=== PATIENT | female | born 1930 | race Caucasian/White ===

== ENCOUNTER 2016-04-10 06:51 | Emergency (ER) | payer MEDICARE ==
[2016-04-10 07:03] VITALS: O2SAT 97
[2016-04-10] MEDS ORDERED: XYLOCAINE 2% HCL 20 ML MDV ONE (07:22)
[2016-04-10] MEDS ORDERED: Xylocaine-Mpf 2% 5 Ml Vial IJ ONE (07:49)
[2016-04-10 07:53] VITALS: BP 162/77; PULSE 71
--- NOTE | 2016-04-10 07:56 | ERPHSYRPT ---
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 HAD PREVIOUS SKIN TEAR LAST WEEK ADJACENT TO SITE. DENIES ASSOCIATED HEAD, NECK OR BACK INJURY. Method of Injury: other (SLID OUT OF CHAIR) Occurred: just prior to arrival Quality: constant Severity of Pain-Max: moderate Severity of Pain-Current: mild Lower Extremities Pain: leg: left Modifying Factors: Improves With: movement Associated Symptoms: none Allergies/Adverse Reactions: meperidine HCl [From Demerol] Allergy (Mild, Verified 04/10/16 07:06) Headache Home Medications: Amiodarone HCl 200 mg PO DAILY 08/23/15 [History] Calcium Carbonate/Vitamin D3 [Calcium 600-Vit D3 400 Tablet] 1 each PO BID 08/22 [History] Levothyroxine Sodium 100 Mcg [Synthroid 100 Mcg] 100 mcg PO DAILY 08/23/15 [History] Potassium Chloride 20 Meq [Klor-Con 20 MEQ] 20 meq PO BID 08/23/15 [History] Pramipexole Di-HCl 0.5 mg [Mirapex 0.5 MG Tablet] 0.5 mg PO HS PRN PRN 09/30 [History] Multivitamin [Multi-Vitamin Daily] 1 each PO HS 01/28/16 [History] Hx Tetanus, Diphtheria Vaccination/Date Given: No Hx Influenza Vaccination/Date Given: No Hx Pneumococcal Vaccination/Date Given: No Immunizations Up to Date: Yes - Review of Systems Constitutional: No Fever, No Chills Eyes: No Symptoms Ears, Nose, & Throat: No Symptoms Respiratory: No Cough, No Dyspnea Cardiac: No Chest Pain, No Edema, No Syncope Abdominal/Gastrointestinal: No Abdominal Pain, No Nausea, No Vomiting, No Diarrhea Genitourinary Symptoms: No Dysuria Musculoskeletal: Injury, No Back Pain, No Neck Pain Skin: No Rash Neurological: No Dizziness, No Focal Weakness, No Sensory Changes Psychological: No Symptoms Endocrine: No Symptoms All Other Systems: Reviewed and Negative - Past Medical History Pertinent Past Medical History: Yes Neurological History: No Pertinent History ENT History: Cataracts Cardiac History: Arrhythmia, Hypertension Respiratory History: No Pertinent History Endocrine Medical History: Hypothyroidism Musculoskeletal History: Fractures, Osteoporosis GI Medical History: Hemorrhoids, Irritable Bowel History: No Pertinent History Psycho-Social History: Anxiety Female Reproductive Disorders: Breast Cancer Other Medical History: broken neck - Past Surgical History Past Surgical History: Yes Neuro Surgical History: No Pertinent History Cardiac: No Pertinent History Respiratory: No Pertinent History Gastrointestinal: No Pertinent History Genitourinary: No Pertinent History Musculoskeletal: Orthopedic Surgery 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 Other Surgical History: back surgery- 5 yrsago - Social History Smoking Status: Never smoker Exposure to second hand smoke: Yes Drug Use: none Patient Lives Alone: No - Female History Hx Now: No - Nursing Vital Signs Nursing Vital Signs: Initial Vital Signs Temperature 98.3 F Temperature Source Oral Pulse Rate 66 Respiratory Rate 22 Blood Pressure [Left Arm] 166/87 Pain Intensity 8 - Physical Exam General Appearance: alert Eyes, Ears, Nose, Throat Exam: moist mucous membranes Neck Exam: non-tender, supple Cardiovascular/Respiratory Exam: chest non-tender, normal breath sounds, regular rate/rhythm, no respiratory distress Gastrointestinal/Abdominal Exam: guarding Back Exam: normal inspection, No vertebral tenderness Hips Exam: bilateral: non-tender Legs Exam: left leg: pain (THERE IS A 6CM VERTICAL LACERATION OVER LEFT MID RON , THROUGH DERMIS FASCIA OVER MUSCLE EXPOSED, NO EVIDENCE OF FOREIGN BODY NOTED, LEFT PEDIS PULSE 2+), soft tissue tenderness (THERE IS A HEALING 4CM WOUND PROXIMAL TO LACERATION SITE) DTR - Lower Extremities Exam: knee (R): 2+, knee (L): 2+, ankle (R): 2+, ankle ( L): 2+ Neuro/Tendon Exam: normal sensation, normal motor functions Mental Status Exam: alert, oriented x 3, cooperative Skin Exam: normal color, warm, dry SpO2 Interpretation: normal SpO2: 97 Oxygen Delivery: Room Air Procedures - Laceration/Wound Repair Left Other Wound Location: Left, lower leg Wound Length (cm): 6 Wound's Depth, Shape: into muscle, linear Wound Explored: clean Irrigated: Yes Hibiclens Prep: Yes Anesthesia: local, 2% Lidocaine Volume Anesthetic (ccs): 7 Wound Debrided: minimal Wound Repaired With: sutures (SUBCUTANEOUS VICRYL 4-0, 4 SUTURES) Suture Size/Type: 4-0, nylon Number of Sutures: 13 Layer Closure?: Yes Sterile Dressing Applied?: Yes Splint Applied?: No Ordered Tests: Medication Summary Generic Name Dose Route Start Last Admin Trade Name Eriberto PRN Reason Stop Dose Admin Lidocaine HCl 7 ml 04/10/16 07:49 Xylocaine-Mpf 2% 5 Ml Vial IJ 04/10/16 07:50 STAT ONE Discontinued Medications Generic Name Dose Route Start Last Admin Trade Name Freq PRN Reason Stop Dose Admin Lidocaine HCl Confirm 04/10/16 07:22 Xylocaine 2% Hcl 20 Ml Mdv Administered 04/10/16 07:23 Dose 1 ml .ROUTE .[facility] ONE - Progress Counseled pt/family regarding: diagnosis, need for follow-up - Departure Time of Disposition: 08:00 Departure Disposition: Home Clinical Impression: LACERATION LEFT RON Condition: Stable Critical Care Time: No Instructions: Care for a Laceration After Repair Additional Instructions: ANTIBIOTIC KEFLEX 500MG EVERY 8 HOURS FOR 10 DAYS. HAVE STITCHES REMOVED AT 10 DAYS. WATCH FOR SIGNS OF INFECTION, REDNESS, SWELLING OR DRAINAGE. CONTINUE ALL CURRENT MEDICATIONS FOR PAIN. APPLY ICE OVER WOUND SITE EVERY 4 HOURS, 30 MINUTES FOR 48 HOURS WITH LEG ELEVATED. Prescriptions: Cephalexin Mh 500 mg [Keflex 500 mg] 500 mg PO TID #30 capsule
== END 2016-04-10 08:10 | disposition home or self-care (01) ==
LOC: ED 06:51
PROC: 0HQLXZZ Repair Left Lower Leg Skin, External Approach (ICD-10-PCS; principal; 2016-04-10)
DX: S81.812A Laceration without foreign body, left lower leg, initial encounter (principal); W07.XXXA Fall from chair, initial encounter
CPT/HCPCS: 12002; 99283

== ENCOUNTER 2016-09-02 03:10 | Inpatient (IN) | payer MEDICARE ==
--- NOTE | 2016-09-02 03:33 | ERPHSYRPT ---
- History of Present Illness Time Seen by Provider: 09/02/16 03:29 Source: patient, family Exam Limitations: no limitations Physician History: pt is 85 yr old female and has had previous confusion found to be from sodium abn and is acting similar to this before; no trauma no neuro deficits ; Timing/Duration: today Severity: moderate Character of Deficits: none Deficits: no difficulties Baseline/Normal Cognition: alert oriented x 3 Current Cognition: alert but confused Associated Symptoms: other (diarrhea) Allergies/Adverse Reactions: meperidine HCl [From Demerol] Allergy (Mild, Verified 09/02/16 05:23) Headache Home Medications: Calcium Carbonate/Vitamin D3 [Calcium 600-Vit D3 400 Tablet] 1 each PO BID 08/22 [History] Levothyroxine Sodium 100 Mcg [Synthroid 100 Mcg] 100 mcg PO DAILY 08/23/15 [History] Potassium Chloride 20 Meq [Klor-Con 20 MEQ] 20 meq PO DAILY 08/23/15 [History] Pramipexole Di-HCl 0.5 mg [Mirapex 0.5 MG Tablet] 0.5 mg PO HS PRN PRN 09/30 [History] Multivitamin [Multi-Vitamin Daily] 1 each PO HS 01/28/16 [History] Aspirin 1 tab PO HS 08/21/16 [History] Torsemide 100 mg PO DAILY 08/21/16 [History] Hx Tetanus, Diphtheria Vaccination/Date Given: No Hx Influenza Vaccination/Date Given: No Hx Pneumococcal Vaccination/Date Given: No - Review of Systems Constitutional: No Fever, No Chills Eyes: No Symptoms Ears, Nose, & Throat: No Symptoms Respiratory: No Cough, No Dyspnea Cardiac: No Chest Pain, No Edema, No Syncope Abdominal/Gastrointestinal: Diarrhea, No Abdominal Pain, No Nausea, No Vomiting Genitourinary Symptoms: No Dysuria Musculoskeletal: No Back Pain, No Neck Pain Skin: No Rash Neurological: No Dizziness, No Focal Weakness, No Sensory Changes Psychological: No Symptoms Endocrine: No Symptoms Hematologic/Lymphatic: No Symptoms Immunological/Allergic: No Symptoms All Other Systems: Reviewed and Negative - Past Medical History Pertinent Past Medical History: Yes Neurological History: No Pertinent History ENT History: Cataracts Cardiac History: Arrhythmia, Hypertension Respiratory History: No Pertinent History Endocrine Medical History: Hypothyroidism Musculoskeletal History: Fractures, Osteoporosis GI Medical History: Hemorrhoids, Irritable Bowel History: No Pertinent History Psycho-Social History: Anxiety Female Reproductive Disorders: Breast Cancer Other Medical History: broken neck - Past Surgical History Past Surgical History: Yes Neuro Surgical History: No Pertinent History Cardiac: No Pertinent History Respiratory: No Pertinent History Gastrointestinal: No Pertinent History Genitourinary: No Pertinent History Musculoskeletal: Orthopedic Surgery 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 Other Surgical History: back surgery- 5 yrsago - Social History Smoking Status: Never smoker Exposure to second hand smoke: Yes Drug Use: none Patient Lives Alone: No - Female History Hx Now: No - Nursing Vital Signs Nursing Vital Signs: Initial Vital Signs Temperature 98.7 F Temperature Source Oral Pulse Rate 76 Respiratory Rate 16 Blood Pressure [Left Arm] 105/58 - Malini Coma Scale Best Eye Response (Malini): (4) open spontaneously Best Verbal Response (Butler): (5) oriented Best Motor Response (Malini): (6) obeys commands Malini Total: 15 - Physical Exam General Appearance: no apparent distress, alert Eye Exam: bilateral eye: PERRL, EOMI Ears, Nose, Throat Exam: normal ENT inspection, moist mucous membranes Neck Exam: normal inspection, non-tender, supple Respiratory: normal breath sounds, lungs clear, airway intact, No respiratory distress Cardiovascular: regular rate/rhythm, No edema Gastrointestinal: soft, No tenderness, No distention Pelvic Exam: deferred Rectal Exam: deferred Back Exam: normal inspection Extremity Exam: normal inspection, No pedal edema 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, 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 Coordination/Gait: normal finger to nose, normal gait Skin Exam: normal color, warm, dry, No rash SpO2: 94 Oxygen Delivery: Room Air - Course Nursing assessment & vital signs reviewed: Yes EKG Interpreted by Me: A-fib (chronic afib), Left Muddy Deviation, LAFB, Non- specific ST Changes Ordered Tests: Active Orders 24 hr Category Date Time Status EKG-ER Only STAT Care 09/02/16 03:33 Active IV Insertion STAT Care 09/02/16 03:33 Active CBC W DIFF Stat Lab 09/02/16 03:39 Completed CMP Stat Lab 09/02/16 03:38 Completed CULTURE,URINE Stat Lab 09/02/16 04:45 Received Lactic Acid Stat Lab 09/02/16 03:33 Completed TROPONIN Stat Lab 09/02/16 03:38 Completed UA W/ MICROSCOPIC Stat Lab 09/02/16 04:45 Completed Medication Summary Generic Name Dose Route Start Last Admin Trade Name Eriberto PRN Reason Stop Dose Admin Sodium Chloride 1,000 mls @ 100 mls/hr 09/02/16 03:45 09/02/16 03:44 Sodium Chloride 0.9% 1000 Ml IV 10/02/16 03:44 100 mls/hr .Q10H JIAN Administration Lab/Rad Data: Laboratory Result Diagrams 09/02/16 03:39 09/02/16 03:38 Laboratory Results 09/02/16 09/02/16 09/02/16 Range/Units 04:45 03:39 03:38 WBC 8.9 (4.0-10.5) K/mm3 RBC 4.32 (4.1-5.4) M/mm3 Hgb 11.9 L (12.0-16.0) gm/dl Hct 37.4 (35-47) % MCV 86.6 (78-100) fl MCH 27.5 (26-32) pg MCHC 31.8 L (32-36) g/dl RDW 16.8 H (11.5-14.0) % Plt Count 272 (150-450) K/mm3 MPV 9.0 (6-9.5) fl Gran % 79.7 H (36.0-66.0) % Lymphocytes % 8.7 L (24.0-44.0) % Monocytes % 10.1 (0.0-12.0) % Eosinophils % 1.0 (0.00-5.0) % Basophils % 0.5 (0.0-0.4) % Basophils # 0.04 (0-0.4) Sodium 125 L (136-145) mEq/L Potassium 4.6 (3.5-5.1) mEq/L Chloride 89 L (98-107) mEq/L Carbon Dioxide 23.5 (21-32) mEq/L Anion Gap 17.2 H (5-15) MEQ/L BUN 47 H (9-20) mg/dL Creatinine 2.83 H (0.55-1.30) mg/dl Estimated GFR 17 ML/MIN Glucose 97 (70-110) MG/DL Lactic Acid (0.4-2.0) Calcium 9.5 (8.5-10.1) mg/dL Total Bilirubin 0.40 (0.2-1.0) mg/dL AST 41 H (15-37) U/L ALT 34 (12-78) U/L Alkaline Phosphatase 111 (46-116) U/L Troponin I < 0.017 (0.000-0.056) ng/ml Serum Total Protein 7.1 (6.4-8.2) gm/dL Albumin 3.8 (3.4-5.0) g/dL Ur Collection Type CATH Urine Color YELLOW (YELLOW) Urine Appearance CLEAR (CLEAR) Urine pH 6.0 (5-6) Ur Specific [place] 1.010 (1.005-1.025) Urine Protein NEGATIVE (Negative) Urine Ketones NEGATIVE (NEGATIVE) Urine Blood 5-10 (0-5) [place]/ul Urine Nitrite NEGATIVE (NEGATIVE) Urine Bilirubin NEGATIVE (NEGATIVE) Urine Urobilinogen NORMAL (0-1) mg/dL Ur Leukocyte Esterase 1+ (NEGATIVE) Urine Microscopic RBC 0-2 (0-2) /HPF Urine Microscopic WBC 10-15 (0-5) /HPF Ur Epithelial Cells FEW (FEW) /HPF Urine Bacteria MODERATE (NEGATIVE) /HPF Urine Glucose NEGATIVE (NEGATIVE) mg/dL Specimen Received 09/02/16 0445 09/02/16 Range/Units 03:33 WBC (4.0-10.5) K/mm3 RBC (4.1-5.4) M/mm3 Hgb (12.0-16.0) gm/dl Hct (35-47) % MCV (78-100) fl MCH (26-32) pg MCHC (32-36) g/dl RDW (11.5-14.0) % Plt Count (150-450) K/mm3 MPV (6-9.5) fl Gran % (36.0-66.0) % Lymphocytes % (24.0-44.0) % Monocytes % (0.0-12.0) % Eosinophils % (0.00-5.0) % Basophils % (0.0-0.4) % Basophils # (0-0.4) Sodium (136-145) mEq/L Potassium (3.5-5.1) mEq/L Chloride (98-107) mEq/L Carbon Dioxide (21-32) mEq/L Anion Gap (5-15) MEQ/L BUN (9-20) mg/dL Creatinine (0.55-1.30) mg/dl Estimated GFR ML/MIN Glucose (70-110) MG/DL Lactic Acid 1.7 (0.4-2.0) Calcium (8.5-10.1) mg/dL Total Bilirubin (0.2-1.0) mg/dL AST (15-37) U/L ALT (12-78) U/L Alkaline Phosphatase (46-116) U/L Troponin I (0.000-0.056) ng/ml Serum Total Protein (6.4-8.2) gm/dL Albumin (3.4-5.0) g/dL Ur Collection Type Urine Color (YELLOW) Urine Appearance (CLEAR) Urine pH (5-6) Ur Specific [place] (1.005-1.025) Urine Protein (Negative) Urine Ketones (NEGATIVE) Urine Blood (0-5) [place]/ul Urine Nitrite (NEGATIVE) Urine Bilirubin (NEGATIVE) Urine Urobilinogen (0-1) mg/dL Ur Leukocyte Esterase (NEGATIVE) Urine Microscopic RBC (0-2) /HPF Urine Microscopic WBC (0-5) /HPF Ur Epithelial Cells (FEW) /HPF Urine Bacteria (NEGATIVE) /HPF Urine Glucose (NEGATIVE) mg/dL Specimen Received - Progress Progress: improved, re-examined Progress Note: 09/02/16 06:27 discussed with pt, family, and Dr. Zeng covering for Dr Savage and all agree to admit to correct electrolytes and watch kidney. Discussed with : Karri Will see patient in: hospital (full admit) Counseled pt/family regarding: lab results, diagnosis, need for follow-up - Departure Time of Disposition: 06:28 Departure Disposition: In-patient Admission Clinical Impression: CKD (chronic kidney disease), Hyponatremia, Altered mental status Condition: Good Critical Care Time: No
[2016-09-02] MEDS: Sodium Chloride 0.9% 1000 ML 1,000 ML IV SCH ×3 (03:44→23:08)
[2016-09-02 03:45] LABS: BASOPHIL % 0.5 % (0.0-0.4); Granulocytes % 79.7 % (36.0-66.0); Lymphocytes % 8.7 % (24.0-44.0); Mean Cell Volume 86.6 fl (78-100); Mean Corpuscular Hemoglobin 27.5 pg (26-32); Monocytes % 10.1 % (0.0-12.0); Platelet Count 272 K/mm3 (150-450); Red Blood Count 4.32 M/mm3 (4.1-5.4); Red Cell Distribution Width 16.8 % (11.5-14.0); White Blood Count 8.9 K/mm3 (4.0-10.5)
[2016-09-02 03:59] LABS: ALBUMIN 3.8 g/dL (3.4-5.0); ALKALINE PHOSPHATASE 111 U/L (46-116); ANION GAP 17.2 MEQ/L (5-15); BLOOD UREA NITROGEN 47 mg/dL (9-20); CHLORIDE 89 mEq/L (98-107); Carbon Dioxide 23.5 mEq/L (21-32); Glucose 97 MG/DL (70-110); Potassium 4.6 mEq/L (3.5-5.1); SGOT/AST 41 U/L (15-37); SGPT/ALT 34 U/L (12-78); SODIUM 125 mEq/L (136-145); Total Protein 7.1 gm/dL (6.4-8.2)
[2016-09-02 04:17] LABS: TROPONIN < 0.017 ng/ml (0.000-0.056)
[2016-09-02 05:04] LABS: Bilirubin NEGATIVE (NEGATIVE); COMPLETE URINE MICROSCOPIC? YES; Collection Type CATH; Glucose NEGATIVE (NEGATIVE); Leukocyte Esterase 1+ (NEGATIVE)
[2016-09-02 05:05] LABS: Bacteria MODERATE /HPF (NEGATIVE); Epithelial Cells FEW /HPF (FEW)
[2016-09-02 05:08] LABS: ADD URINE CULTURE? YES (NO)
[2016-09-02] MEDS ORDERED: Mirapex 0.5 MG Tablet ONE (06:08)
[2016-09-02] MEDS: Mirapex 0.5 MG Tablet PO SCH ×2 (06:15→20:29)
[2016-09-02 09:07] LABS: Mean Cell Volume 86.2 fl (78-100); Mean Platelet Volume 8.7 fl (6-9.5); Platelet Count 251 K/mm3 (150-450); Red Blood Count 4.26 M/mm3 (4.1-5.4); Red Cell Distribution Width 16.9 % (11.5-14.0); White Blood Count 8.5 K/mm3 (4.0-10.5)
[2016-09-02 09:17] LABS: Mean Corpuscular Hemoglobin 27.6 pg (26-32)
[2016-09-02 09:30] LABS: ANION GAP 14.1 MEQ/L (5-15); Carbon Dioxide 25.1 mEq/L (21-32); Potassium 4.9 mEq/L (3.5-5.1)
[2016-09-02] MEDS ORDERED: TYLENOL 325 MG PO PRN (10:30)
[2016-09-02] MEDS ORDERED: Klor Con 10 MEQ PO SCH (10:45)
[2016-09-02] MEDS: Calcium 500MG W/Vit D Tablet PO SCH ×2 (11:39→20:29)
[2016-09-02] MEDS: TENORMIN 50 MG PO SCH (11:39)
[2016-09-02] MEDS: THERAGRAN MULTIVITAMIN PO SCH (11:39)
[2016-09-02] MEDS: SYNTHROID 100 MCG PO SCH (11:42)
[2016-09-02] MEDS: Ativan 0.5 MG PO SCH ×2 (11:42→20:29)
[2016-09-02] MEDS: Cordarone 200 MG PO SCH (11:42)
[2016-09-02] MEDS: KENALOG 0.1% OINTMENT TP SCH (11:43)
[2016-09-02] MEDS: TAPENTADOL PO SCH ×2 (11:43→20:54)
[2016-09-02] MEDS: Ecotrin 325 MG PO SCH (20:29)
[2016-09-02] MEDS: ULTRAM 50 MG PO PRN (20:54)
[2016-09-02] MEDS ORDERED: VITAMIN D3 PO SCH (22:00)
[2016-09-02] MEDS ORDERED: [UNRECOGNIZED DRUG - OTHER] PO SCH (22:00)
[2016-09-02] MEDS ORDERED: Ativan 1 MG PO SCH (22:00)
[2016-09-02] MEDS ORDERED: NON-FORMULARY ITEM (Multivitamin [Multi-Vitamin Daily] 1 EACH) PO SCH (22:00)
[2016-09-02] MEDS ORDERED: NON-FORMULARY ITEM (Tapentadol Hcl [Nucynta Er] 200 MG) PO SCH (22:00)
[2016-09-02] MEDS ORDERED: ASPIRIN PO SCH (22:00)
[2016-09-02] MEDS ORDERED: CALCIUM CARBONATE PO SCH (22:00)
[2016-09-03 06:24] LABS: BASOPHIL % 0.2 % (0.0-0.4); Eosinophil % 2.3 % (0.00-5.0); Granulocytes % 77.1 % (36.0-66.0); Mean Cell Volume 87.3 fl (78-100); Mean Corpuscular Hemoglobin 27.7 pg (26-32); Mean Platelet Volume 9.2 fl (6-9.5); Monocytes % 11.4 % (0.0-12.0); Platelet Count 247 K/mm3 (150-450); Red Cell Distribution Width 17.6 % (11.5-14.0); White Blood Count 8.2 K/mm3 (4.0-10.5)
[2016-09-03] MEDS: ULTRAM 50 MG PO PRN (06:39)
[2016-09-03 06:42] LABS: ALBUMIN 3.5 g/dL (3.4-5.0); ANION GAP 12.8 MEQ/L (5-15); BILIRUBIN,TOTAL 0.5 mg/dL (0.2-1.0); Potassium 4.7 mEq/L (3.5-5.1)
--- NOTE | 2016-09-03 07:58 | PCM.NOTE ---
Date and Time: 09/03/16 0758 Subjective Assessment: she presented yesterday with weakness and confusion. She had been eating large quantities of peaches and developed diarrhea with this. She was still taking her diuretic as well. She then became confused and disoriented more. She was brought to the ED. She is now feeling better after the fluids. Still weak. Swelling in legs is better with elevation. She has less confusion. Her back is really hurting hernow. SHe follows with pain mgmt for this. 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 Objective Exam General Appearance: no apparent distress, alert Neurologic Exam: alert, oriented x 3, cooperative, normal mood/affect, nml cerebellar function, sensation nml, No motor deficits Skin Exam: normal color, warm, dry Eye Exam: PERRL, EOMI, eyes nml inspection Ears, Nose, Throat Exam: normal ENT inspection, pharynx normal, moist mucous membranes Neck Exam: normal inspection, non-tender, supple, full range of motion Respiratory Exam: normal breath sounds, lungs clear, No respiratory distress Cardiovascular Exam: regular rate/rhythm, murmur Gastrointestinal/Abdomen Exam: soft, normal bowel sounds, No tenderness, No mass Extremity Exam: normal inspection, normal range of motion, other (trace Right lower extremity edema) Back Exam: normal inspection, normal range of motion, No CVA tenderness, No vertebral tenderness Pelvic Exam: deferred Rectal Exam: deferred OBJECTIVE DATA Vital Signs: Vital Signs - 24 hr Temp Pulse Resp BP BP Pulse Ox 09/03/16 07:00 98.2 F 86 20 137/84 91 L 09/03/16 03:00 98.1 F 79 18 136/72 92 L 09/02/16 23:00 98.3 F 84 18 136/65 97 09/02/16 19:57 98.3 F 78 20 104/57 92 L 09/02/16 15:55 98.0 F 86 18 114/57 93 L 09/02/16 11:44 98.1 F 91 H 18 128/59 95 09/02/16 11:39 75 128/59 Pain Assessment - Last Documented Pain Intensity 5 Pain Scale Used 0-10 Pain Scale Intake and Output: Intake & Output 08/31/16 09/01/16 09/02/16 09/03/16 11:59 11:59 11:59 11:59 Intake Total 1160 Output Total 700 2000 Balance -700 -840 Weight 65.544 kg Lab Results: Lab Results-Last 24 Hours 09/02/16 09/02/16 09/03/16 Range/Units 08:45 08:45 05:45 WBC 8.5 (4.0-10.5) K/mm3 RBC 4.26 (4.1-5.4) M/mm3 Hgb 11.8 L (12.0-16.0) gm/dl Hct 36.7 (35-47) % MCV 86.2 (78-100) fl MCH 27.6 (26-32) pg MCHC 32.2 (32-36) g/dl RDW 16.9 H (11.5-14.0) % Plt Count 251 (150-450) K/mm3 MPV 8.7 (6-9.5) fl Gran % (36.0-66.0) % Lymphocytes % (24.0-44.0) % Monocytes % (0.0-12.0) % Eosinophils % (0.00-5.0) % Basophils % (0.0-0.4) % Basophils # (0-0.4) Sodium 126 L (136-145) mEq/L Potassium 4.9 (3.5-5.1) mEq/L Chloride 92 L (98-107) mEq/L Carbon Dioxide 25.1 (21-32) mEq/L Anion Gap 14.1 (5-15) MEQ/L BUN 43 H (9-20) mg/dL Creatinine 2.53 H (0.55-1.30) mg/dl Estimated GFR 19 ML/MIN Glucose 87 (70-110) MG/DL Calcium 9.0 (8.5-10.1) mg/dL Total Bilirubin (0.2-1.0) mg/dL AST (15-37) U/L ALT (12-78) U/L Alkaline Phosphatase (46-116) U/L Troponin I < 0.017 (0.000-0.056) ng/ml Serum Total Protein (6.4-8.2) gm/dL Albumin (3.4-5.0) g/dL Prealbumin 20.3 (18.0-35.7) mg/dL 09/03/16 09/03/16 Range/Units 05:45 05:45 WBC 8.2 (4.0-10.5) K/mm3 RBC 4.40 (4.1-5.4) M/mm3 Hgb 12.2 (12.0-16.0) gm/dl Hct 38.4 (35-47) % MCV 87.3 (78-100) fl MCH 27.7 (26-32) pg MCHC 31.8 L (32-36) g/dl RDW 17.6 H (11.5-14.0) % Plt Count 247 (150-450) K/mm3 MPV 9.2 (6-9.5) fl Gran % 77.1 H (36.0-66.0) % Lymphocytes % 9.0 L (24.0-44.0) % Monocytes % 11.4 (0.0-12.0) % Eosinophils % 2.3 (0.00-5.0) % Basophils % 0.2 (0.0-0.4) % Basophils # 0.02 (0-0.4) Sodium 130 L (136-145) mEq/L Potassium 4.7 (3.5-5.1) mEq/L Chloride 98 (98-107) mEq/L Carbon Dioxide 24.0 (21-32) mEq/L Anion Gap 12.8 (5-15) MEQ/L BUN 26 H (9-20) mg/dL Creatinine 1.70 H (0.55-1.30) mg/dl Estimated GFR 31 ML/MIN Glucose 81 (70-110) MG/DL Calcium 8.8 (8.5-10.1) mg/dL Total Bilirubin 0.50 (0.2-1.0) mg/dL AST 44 H (15-37) U/L ALT 32 (12-78) U/L Alkaline Phosphatase 107 (46-116) U/L Troponin I (0.000-0.056) ng/ml Serum Total Protein 7.0 (6.4-8.2) gm/dL Albumin 3.5 (3.4-5.0) g/dL Prealbumin (18.0-35.7) mg/dL Assessment/Plan (1) Hyponatremia Current Visit: Yes Status: Acute Assessment & Plan: hypovolemic hyponatremia secondary to diarrhea and her loop diuretic with acute on chronic renal failure hold the loop gentle rehydration good improvement in renal function today monitor I/O decrease iv fluids today if continues to improve likely home tomorrow work on gait and function. 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
[2016-09-03] MEDS: Sodium Chloride 0.9% 1000 ML 1,000 ML IV SCH ×2 (09:23→19:32)
[2016-09-03] MEDS: Ativan 1 MG PO SCH ×2 (09:24→21:27)
[2016-09-03] MEDS: ENOXAPARIN SODIUM SQ SCH (09:25)
[2016-09-03] MEDS: Calcium 500MG W/Vit D Tablet PO SCH ×2 (09:25→21:27)
[2016-09-03] MEDS: NON-FORMULARY ITEM PO SCH ×2 (09:25→21:27)
[2016-09-03] MEDS: SYNTHROID 100 MCG PO SCH (09:26)
[2016-09-03] MEDS: TENORMIN 50 MG PO SCH (09:26)
[2016-09-03] MEDS: THERAGRAN MULTIVITAMIN PO SCH (09:27)
[2016-09-03] MEDS: Cordarone 200 MG PO SCH (09:27)
[2016-09-03] MEDS: KENALOG 0.1% OINTMENT TP SCH (09:32)
--- NOTE | 2016-09-03 09:38 | HP ---
CHIEF COMPLAINT: Confusion. HISTORY OF PRESENT ILLNESS: The patient is an 85 y/o WF who appears to be somewhat better this morning. She appears to be answering questions appropriately. She apparently had confusion issues. She was brought in to the Emergency Room by her daughter who she currently lives with. The patient has had previous episodes of hyponatremia which has led to confusion in the past. The patient otherwise has had no recent new problems. PAST MEDICAL HISTORY: Significant for cataracts, arrhythmia, hypertension, hypothyroid, osteoporosis, hemorrhoids, irritable bowel, breast cancer, and neck fracture. HOME MEDICATIONS: Currently include acetaminophen, amiodarone, aspirin, atenolol, calcium, Enalapril, levothyroxine, lorazepam, potassium, Mirapex, Nucynta, Torsemide, tramadol, and triamcinolone. ALLERGIES: MEPERIDINE. PHYSICAL EXAMINATION: Reveals an elderly WF currently in no obvious distress. HEENT: Normocephalic and atraumatic. Pupils equal, round, and reactive to light. Extraocular movements intact. Oropharynx is pink and moist. NECK: Supple without lymphadenopathy, thyromegaly, or JVD. CHEST: Clear to auscultation with good air movement bilaterally. HEART: Regular rate and rhythm without murmurs, rubs, or gallops. ABDOMEN: Soft, nontender, nondistended without hepatosplenomegaly or masses. EXTREMITIES: Without clubbing, cyanosis, or significant edema. NEURO: The patient is currently neurologically A&O X 3. VITAL SIGNS ON ADMISSION: Her initial vital signs showed a temperature of 98.7 oral with pulse of 76, respiratory rate 16, BP 105/58. LABORATORY STUDIES: Showed a WBC of 8500, Hgb 11.8, platelet count 251,000. She had a creatinine of 2.83 which is up from 1.52 from a month ago. Her lactic acid was 1.7. BUN was 47, sodium 125. Liver enzymes were normal. Troponin was less than 0.017. UA showed a specific gravity of 1.010. There were 10-15 WBC per high powered field, but negative nitrite. ASSESSMENT: 1. THE PATIENT WITH CONFUSION, HYPONATREMIA, AND WHAT APPEARS TO BE SYNDROME OF INAPPROPRIATE ANTIDIURETIC HORMONE SECRETION. She has been placed on saline and fluid restriction to try to help her improve her sodium. Interestingly, she also has renal insufficiency which has worsened over the past month. We will hold the patient's Enalapril and she will be reduced on her Ativan to 0.5 mg from 1 mg and on her Nucynta will be reduced to 100 mg from 200 mg to help with reduction in her confusion.
[2016-09-03] MEDS ORDERED: NON-FORMULARY ITEM (Potassium Chloride 20 Meq [Klor-Con 20 Meq] 20 MEQ) PO SCH (10:00)
[2016-09-03] MEDS ORDERED: TAPENTADOL HCL PO SCH (10:00)
[2016-09-03] MEDS: Ecotrin 325 MG PO SCH (21:26)
[2016-09-03] MEDS: Mirapex 0.5 MG Tablet PO SCH (21:27)
[2016-09-04] MEDS: ULTRAM 50 MG PO PRN (04:14)
[2016-09-04] MEDS: Sodium Chloride 0.9% 1000 ML 1,000 ML IV SCH (05:25)
[2016-09-04 06:16] LABS: ANION GAP 12.8 MEQ/L (5-15); Carbon Dioxide 21.6 mEq/L (21-32); Potassium 4.6 mEq/L (3.5-5.1)
[2016-09-04 07:11] VITALS: BP 161/86; O2SAT 93
[2016-09-04] MEDS ORDERED: Macrobid 100MG Capsule PO SCH (08:00)
--- NOTE | 2016-09-04 08:05 | PCM.DS ---
Discharge Summary Date of Admission: 09/02/16 06:45 Date of Discharge: 09/04/16 Admitting Physician: DEBORAH MOCTEZUMA Primary Care Provider: KELSI AGUILAR Allergies Allergies meperidine HCl [From Demerol] Allergy (Mild, Verified 09/02/16 05:23) Headache Hospital Summary - Hospital Course Hospital Course: she presented with increased confusion and weakness after developing diarrhea. She had been eating peaches for all her meals and gave her profound diarrhea. THis resulted in her being confused. she was evaluated and found to have acute hyponatremia and acute kidney injury due to dehydration. this improved with slow hydration with normal saline. Her loop diuretic and sukumar inhibitor were held and her renal function improved to baseline. She did not have any significant edema at time of discharge in her lower extremities and her strength was improving and her mental status was improving and thus her torsemide will be used as needed for swelling and she will re-establish with nephrology as an outpatient. - Vitals & Intake/Output Vital Signs: Vital Signs Temperature 98.2 F 09/04/16 07:10 Pulse Rate 86 09/04/16 07:10 Respiratory Rate 18 09/04/16 07:10 Blood Pressure 161/86 09/04/16 07:10 O2 Sat by Pulse Oximetry 93 L 09/04/16 07:10 Intake & Output: Intake & Output 09/01/16 09/02/16 09/03/16 09/04/16 11:59 11:59 11:59 11:59 Intake Total 1520 720 Output Total 700 2000 1000 Balance -700 -480 -280 Weight 65.544 kg 68.583 kg - Lab Result Diagrams: 09/03/16 05:45 09/04/16 05:25 Lab Results-Last 24 Hrs: Lab Results-Last 24 Hours 09/04/16 Range/Units 05:25 Sodium 134 L (136-145) mEq/L Potassium 4.6 (3.5-5.1) mEq/L Chloride 104 (98-107) mEq/L Carbon Dioxide 21.6 (21-32) mEq/L Anion Gap 12.8 (5-15) MEQ/L BUN 16 (9-20) mg/dL Creatinine 1.23 (0.55-1.30) mg/dl Estimated GFR 44 ML/MIN Glucose 104 (70-110) MG/DL Calcium 8.9 (8.5-10.1) mg/dL - Procedures and Test Procedures and Tests throughout Hospitalization: Therapy Orders & Screens 09/03/16 07:52 PT Eval & Treat ( Order) ROUTINE Evaluate: Yes Treat: Yes Reason for Eval:: generalized weakness gait instability Diagnosis: hyponatremia Discharge Exam General Appearance: no apparent distress, alert Neurologic Exam: alert, oriented x 3, cooperative, normal mood/affect, abnormal gait, No nml station & gait Skin Exam: normal color, warm, dry Eye Exam: PERRL, EOMI, eyes nml inspection Ears, Nose, Throat Exam: normal ENT inspection, pharynx normal, moist mucous membranes Neck Exam: normal inspection, non-tender, supple, full range of motion Respiratory Exam: normal breath sounds, lungs clear, No respiratory distress Cardiovascular Exam: regular rate/rhythm, murmur Gastrointestinal/Abdomen Exam: soft, No tenderness, No mass Extremity Exam: normal inspection, normal range of motion, pedal edema (trace bilateral lowere extremity) Back Exam: normal inspection, normal range of motion, No CVA tenderness, No vertebral tenderness Pelvic Exam: deferred Rectal Exam: deferred Final Diagnosis/Problem List - Final Discharge Diagnosis/Problem (1) Hyponatremia Status: Acute (2) Acute kidney failure Status: Acute (3) Anemia Status: Acute (4) CKD (chronic kidney disease) Status: Acute (5) 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 Status: Acute (6) Edema Status: Acute (7) Hypertension Status: Chronic (8) Acute cystitis Status: Acute (9) Weakness generalized Status: Acute (10) Gait instability Status: Acute - Discharge Discharge Date: 09/04/16 Disposition: Home, Self-Care Condition: Good Prescriptions: New Nitrofurantoin Macro 100 mg [Macrobid 100MG Capsule] 100 mg PO BIDWM # 14 capsule Continue Levothyroxine Sodium 100 Mcg [Synthroid 100 Mcg] 100 mcg PO DAILY Calcium Carbonate/Vitamin D3 [Calcium 600-Vit D3 400 Tablet] 1 each PO BID Pramipexole Di-HCl 0.5 mg [Mirapex 0.5 MG Tablet] 0.5 mg PO HS PRN PRN PRN Reason: Pain Multivitamin [Multi-Vitamin Daily] 1 each PO HS Atenolol 50 mg [Tenormin 50 mg] 50 mg PO DAILY #0 tablet Acetaminophen 325 mg [Tylenol 325 mg] 650 mg PO Q4H PRN PRN #0 tablet PRN Reason: Pain, Fever, Headache Enalapril Maleate 10 mg [Vasotec 10 MG] 10 mg PO DAILY #0 tablet Tramadol HCl [Ultram 50 mg Tablet] 50 mg PO Q6HPRN PRN #90 tablet PRN Reason: Pain Aspirin 1 tab PO HS Amiodarone HCl 200 mg [Cordarone 200 MG] 200 mg PO DAILY Tapentadol HCl [Nucynta ER] 200 mg PO BID Lorazepam 1 mg [Ativan 1 MG] 1 mg PO BID Triamcinolone Acetonide 0.1% [Kenalog 0.1% Ointment] 15 gm TP DAILY Changed Potassium Chloride 20 Meq [Klor-Con 20 MEQ] 20 meq PO DAILY PRN #0 PRN Reason: edema Torsemide 100 mg PO DAILY PRN #0 PRN Reason: edema Instructions: Urinary Tract Infection (UTI), Hyponatremia Additional Instructions: [facility] PT/OT/RN evaluate and treat weakness, gait instability, falls, Follow up with: KELSI AGUILAR [Primary Care Provider] - JOVANY MUKHERJEE MD [CONSULTING PHYSICIAN] - 1 Week Forms: Discharge Instructions, Patient Portal Information
[2016-09-04] MEDS: THERAGRAN MULTIVITAMIN PO SCH (08:59)
[2016-09-04] MEDS: Cordarone 200 MG PO SCH (08:59)
[2016-09-04] MEDS: Calcium 500MG W/Vit D Tablet PO SCH (08:59)
[2016-09-04] MEDS: Ativan 1 MG PO SCH (08:59)
[2016-09-04] MEDS: TENORMIN 50 MG PO SCH (08:59)
[2016-09-04] MEDS: SYNTHROID 100 MCG PO SCH (08:59)
[2016-09-04] MEDS: KENALOG 0.1% OINTMENT TP SCH (09:00)
[2016-09-04] MEDS: ENOXAPARIN SODIUM SQ SCH (09:00)
[2016-09-04] MEDS: NON-FORMULARY ITEM PO SCH (09:00)
[2016-09-04 09:01] VITALS: PULSE 93
== END 2016-09-04 10:10 | disposition home or self-care (01) | DRG 641 ==
LOC: ED 03:10 → MED SURG 06:45
PROVIDERS: ADMIT Family Medicine; ATTEND Family Medicine
DX: E87.1 Hypo-osmolality and hyponatremia (principal); E22.2 Syndrome of inappropriate secretion of antidiuretic hormone; N17.9 Acute kidney failure, unspecified; I13.0 Hypertensive heart and chronic kidney disease with heart failure and stage 1 through stage 4 chronic kidney disease, or unspecified chronic kidney disease; I50.30 Unspecified diastolic (congestive) heart failure; N30.00 Acute cystitis without hematuria; D64.9 Anemia, unspecified; N18.9 Chronic kidney disease, unspecified; R53.1 Weakness; R26.89 Other abnormalities of gait and mobility; Z79.899 Other long term (current) drug therapy; E03.9 Hypothyroidism, unspecified; M81.0 Age-related osteoporosis without current pathological fracture; Z85.3 Personal history of malignant neoplasm of breast
CPT/HCPCS: 36000; 36415; 80048; 80053; 81000; 83605; 84134; 84484; 85025; 85027; 87077; 87086; 87186; 93005; 99285; J1650; P9612; A9270-GY

== ENCOUNTER 2016-09-26 10:24 | Inpatient (IN) | payer MEDICARE ==
[2016-09-26] MEDS ORDERED: Zofran 4 MG/2 ML VIAL IV ONE (10:58)
[2016-09-26] MEDS ORDERED: Sodium Chloride 0.9% 1000 ML 1,000 ML IV SCH (11:00)
[2016-09-26] MEDS ORDERED: Zofran 4 MG/2 ML VIAL ONE (11:12)
[2016-09-26 11:26] LABS: Mean Cell Volume 88.3 fl (78-100); Mean Corpuscular Hemoglobin 28.3 pg (26-32); Mean Platelet Volume 8.8 fl (6-9.5); Platelet Count 289 K/mm3 (150-450); Red Blood Count 4.27 M/mm3 (4.1-5.4); Red Cell Distribution Width 19.6 % (11.5-14.0)
[2016-09-26 11:29] LABS: PROTIME 11.3 SECONDS (9.95-12.35)
--- NOTE | 2016-09-26 11:30 | ERPHSYRPT ---
- History of Present Illness Time Seen by Provider: 09/26/16 10:55 Source: patient, family Exam Limitations: clinical condition Patient Subjective Stated Complaint: vomiting yesterday and today. family also states [facility] nurse from [facility] took patient's b/p yesterda and it was low. recent hx of fx pelvis and low sodium Triage Nursing Assessment: to room per w/c, skin w/d, pale. resp nonlabored. patient assisted to bed with one person. is able to stand with assist. abd soft, normal bowel sounds. tender left pelvic area. Physician History: PATIENT WITH A HISTORY OF HYPONATREMIA, RECENT PELVIC FRACTURE HAS GENERALIZED WEAKNESS, AND VOMITING DAILY. DENIES COUGH,DYSPNEA, CHEST OR ABDOMINAL PAIN. Timing/Duration: day(s) Severity: moderate Associated Symptoms: nausea, vomiting Allergies/Adverse Reactions: meperidine HCl [From Demerol] Allergy (Mild, Verified 09/26/16 10:47) Headache Home Medications: Calcium Carbonate/Vitamin D3 [Calcium 600-Vit D3 400 Tablet] 1 each PO BID 08/22 [History] Levothyroxine Sodium 100 Mcg [Synthroid 100 Mcg] 100 mcg PO DAILY 08/23/15 [History] Pramipexole Di-HCl 0.5 mg [Mirapex 0.5 MG Tablet] 0.5 mg PO HS PRN PRN 09/30 [History] Multivitamin [Multi-Vitamin Daily] 1 each PO HS 01/28/16 [History] Aspirin 1 tab PO HS 08/21/16 [History] Amiodarone HCl 200 mg [Cordarone 200 MG] 200 mg PO DAILY 09/02/16 [History ] Lorazepam 1 mg [Ativan 1 MG] 1 mg PO BID 09/02/16 [History] Tapentadol HCl [Nucynta ER] 200 mg PO BID 09/02/16 [History] Triamcinolone Acetonide 0.1% [Kenalog 0.1% Ointment] 15 gm TP DAILY [History] Potassium Chloride 20 Meq [Klor-Con 20 MEQ] 20 meq PO DAILY 09/26/16 [History] Pramipexole Di-HCl 0.5 mg [Mirapex 0.5 MG Tablet] 0.5 mg PO UD 09/26/16 [ History] Torsemide 100 mg PO DAILY 09/26/16 [History] Hx Tetanus, Diphtheria Vaccination/Date Given: No Hx Influenza Vaccination/Date Given: Yes Hx Pneumococcal Vaccination/Date Given: Yes Immunizations Up to Date: No - Review of Systems Constitutional: No Fever, No Chills Eyes: No Symptoms Ears, Nose, & Throat: No Symptoms Respiratory: No Symptoms, No Cough, No Dyspnea Cardiac: No Symptoms, No Chest Pain, No Edema, No Syncope Abdominal/Gastrointestinal: Nausea, Vomiting, No Diarrhea Genitourinary Symptoms: No Symptoms, No Dysuria Musculoskeletal: Injury, Other (pelvic fracture), No Back Pain, No Neck Pain Skin: No Rash Neurological: No Dizziness, No Focal Weakness, No Sensory Changes Psychological: No Symptoms Endocrine: No Symptoms All Other Systems: Reviewed and Negative - Past Medical History Pertinent Past Medical History: Yes Neurological History: No Pertinent History ENT History: Cataracts Cardiac History: Arrhythmia, Hypertension Respiratory History: No Pertinent History Endocrine Medical History: Hypothyroidism Musculoskeletal History: Fractures, Osteoporosis GI Medical History: Hemorrhoids, Irritable Bowel History: No Pertinent History Psycho-Social History: Anxiety Female Reproductive Disorders: Breast Cancer Other Medical History: broken neck - Past Surgical History Past Surgical History: Yes Neuro Surgical History: No Pertinent History Cardiac: No Pertinent History Respiratory: No Pertinent History Gastrointestinal: No Pertinent History Genitourinary: No Pertinent History Musculoskeletal: Orthopedic Surgery 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 Other Surgical History: back surgery- 5 yrsago; cataract surgery both eyes - Social History Smoking Status: Never smoker Exposure to second hand smoke: Yes Drug Use: none Patient Lives Alone: No - Female History Hx Now: No - Nursing Vital Signs Nursing Vital Signs: Initial Vital Signs Temperature 97.7 F Temperature Source Oral Pulse Rate 64 Respiratory Rate 16 Blood Pressure [] 100/54 Pain Intensity 7 - Physical Exam General Appearance: no apparent distress, alert Eye Exam: PERRL/EOMI, eyes nml inspection Ears, Nose, Throat Exam: normal ENT inspection, TMs normal, pharynx normal, moist mucous membranes Neck Exam: normal inspection, non-tender, supple, full range of motion Respiratory Exam: normal breath sounds, lungs clear, No respiratory distress Cardiovascular Exam: regular rate/rhythm, normal heart sounds, normal peripheral pulses Gastrointestinal/Abdomen Exam: soft, normal bowel sounds, tenderness (right groin area, no crepitus), No mass Back Exam: normal inspection, normal range of motion, No CVA tenderness, No vertebral tenderness Extremity Exam: normal inspection, normal range of motion, pelvis stable Neurologic Exam: alert, oriented x 3, cooperative, normal mood/affect, nml cerebellar function, nml station & gait, sensation nml, No motor deficits Skin Exam: normal color, warm, dry, No rash Lymphatic Exam: No adenopathy SpO2: 94 Oxygen Delivery: Room Air - Course EKG Interpreted by Me: A-fib, Left [place] Deviation, Non-specific ST Changes - Radiology Exams Chest X-ray Interpretation: Discussed w/ radiologist (MILD CARDIOMEGALY, WITHOUT EVIDENCE OF ACUTE CONGESTIVE HEART FAILURE, MULTIPLE OLD RIGHT SIDED RIB FRACTURES) Ordered Tests: Active Orders 24 hr Category Date Time Status EKG-ER Only STAT Care 09/26/16 11:43 Active IV Insertion STAT Care 09/26/16 10:58 Active CHEST 1 VIEW (PORTABLE) Stat Exams 09/26/16 11:01 Completed AMYLASE Stat Lab 09/26/16 11:08 Completed CBC W DIFF Stat Lab 09/26/16 11:08 Completed CMP Stat Lab 09/26/16 11:08 Completed CULTURE,URINE Stat Lab 09/26/16 11:40 Received LIPASE Stat Lab 09/26/16 11:08 Completed Manual Differential NC Stat Lab 09/26/16 11:08 Completed PROTIME WITH INR Stat Lab 09/26/16 11:08 Completed TROPONIN Q3H Lab 09/26/16 11:08 Completed TROPONIN Q3H Lab 09/26/16 14:15 Ordered TROPONIN Q3H Lab 09/26/16 17:15 Ordered TROPONIN Q3H Lab 09/26/16 20:15 Ordered TROPONIN Q3H Lab 09/26/16 23:15 Ordered UA W/ MICROSCOPIC Stat Lab 09/26/16 11:40 Completed Medication Summary Generic Name Dose Route Start Last Admin Trade Name Freq PRN Reason Stop Dose Admin Sodium Chloride 1,000 mls @ 100 mls/hr 09/26/16 11:00 09/26/16 11:15 Sodium Chloride 0.9% 1000 Ml IV 10/26/16 10:59 100 mls/hr .Q10H JIAN Administration Discontinued Medications Generic Name Dose Route Start Last Admin Trade Name Freq PRN Reason Stop Dose Admin Fentanyl Citrate 25 mcg 09/26/16 11:35 09/26/16 11:45 Sublimaze 100 Mcg/2 Ml IV 09/26/16 11:36 25 mcg STAT ONE Administration Fentanyl Citrate Confirm 09/26/16 11:44 Sublimaze 100 Mcg/2 Ml Administered 09/26/16 11:45 Dose 100 mcg .ROUTE .STK-MED ONE Ceftriaxone Sodium/Dextrose 1 g in 50 mls @ 100 mls/hr 09/26/16 12:14 12:20 Rocephin 1 Gm-D5w 50 Ml Bag IV 09/26/16 12:43 100 mls/hr STAT STA Administration Ceftriaxone Sodium/Dextrose Confirm 09/26/16 12:17 Rocephin 1 Gm-D5w 50 Ml Bag Administered 09/26/16 12:18 Dose 1 g in 50 mls @ ud IV .STK-MED ONE Ondansetron HCl 4 mg 09/26/16 10:58 09/26/16 11:15 Zofran 4 Mg/2 Ml Vial IV 09/26/16 10:59 4 mg STAT ONE Administration Ondansetron HCl Confirm 09/26/16 11:12 Zofran 4 Mg/2 Ml Vial Administered 09/26/16 11:13 Dose 4 mg .ROUTE .STK-MED ONE Potassium Chloride 40 meq 09/26/16 11:56 09/26/16 12:11 Klor Con 10 Meq PO 09/26/16 11:57 40 meq STAT ONE Administration Potassium Chloride Confirm 09/26/16 12:01 Klor Con 10 Meq Administered 09/26/16 12:02 Dose 40 meq PO .STK-MED ONE Lab/Rad Data: Laboratory Result Diagrams 09/26/16 11:08 09/26/16 11:08 Laboratory Results 09/26/16 09/26/16 09/26/16 Range/Units 11:40 11:08 11:08 WBC (4.0-10.5) K/mm3 RBC (4.1-5.4) M/mm3 Hgb (12.0-16.0) gm/dl Hct (35-47) % MCV (78-100) fl MCH (26-32) pg MCHC (32-36) g/dl RDW (11.5-14.0) % Plt Count (150-450) K/mm3 MPV (6-9.5) fl Segmented Neutrophils (36.0-66.0) % Lymphocytes (Manual) (24-44) % Monocytes (Manual) (0.0-12.0) % Basophils (Manual) (0.0-1.0) % Differential Comment Platelet Estimate (NORMAL) Poikilocytosis Anisocytosis INR 1.00 (0.8-3.0) Sodium (136-145) mEq/L Potassium (3.5-5.1) mEq/L Chloride (98-107) mEq/L Carbon Dioxide (21-32) mEq/L Anion Gap (5-15) MEQ/L BUN (9-20) mg/dL Creatinine (0.55-1.30) mg/dl Estimated GFR ML/MIN Glucose (70-110) MG/DL Calcium (8.5-10.1) mg/dL Total Bilirubin (0.2-1.0) mg/dL AST (15-37) U/L ALT (12-78) U/L Alkaline Phosphatase (46-116) U/L Troponin I < 0.017 (0.000-0.056) ng/ml Serum Total Protein (6.4-8.2) gm/dL Albumin (3.4-5.0) g/dL Amylase (25-115) U/L Lipase (73-393) U/L Ur Collection Type CATH Urine Color YELLOW (YELLOW) Urine Appearance HAZY (CLEAR) Urine pH 7.0 (5-6) Ur Specific Carver 1.010 (1.005-1.025) Urine Protein NEGATIVE (Negative) Urine Ketones NEGATIVE (NEGATIVE) Urine Blood 50 (0-5) Milton/ul Urine Nitrite POSITIVE (NEGATIVE) Urine Bilirubin NEGATIVE (NEGATIVE) Urine Urobilinogen NORMAL (0-1) mg/dL Ur Leukocyte Esterase 2+ (NEGATIVE) Urine Microscopic RBC 0-2 (0-2) /HPF Urine Microscopic WBC >100 (0-5) /HPF Urine Bacteria MODERATE (NEGATIVE) /HPF Urine Glucose NEGATIVE (NEGATIVE) mg/dL Specimen Received 09/26/16 1140 09/26/16 09/26/16 Range/Units 11:08 11:08 WBC 7.0 (4.0-10.5) K/mm3 RBC 4.27 (4.1-5.4) M/mm3 Hgb 12.1 (12.0-16.0) gm/dl Hct 37.7 (35-47) % MCV 88.3 (78-100) fl MCH 28.3 (26-32) pg MCHC 32.1 (32-36) g/dl RDW 19.6 H (11.5-14.0) % Plt Count 289 (150-450) K/mm3 MPV 8.8 (6-9.5) fl Segmented Neutrophils 79 H (36.0-66.0) % Lymphocytes (Manual) 12 L (24-44) % Monocytes (Manual) 6 (0.0-12.0) % Basophils (Manual) 3 H (0.0-1.0) % Differential Comment ABNORMAL Platelet Estimate NORMAL (NORMAL) Poikilocytosis 1+ Anisocytosis 1+ INR (0.8-3.0) Sodium 130 L (136-145) mEq/L Potassium 2.9 L* (3.5-5.1) mEq/L Chloride 88 L (98-107) mEq/L Carbon Dioxide 35.9 H (21-32) mEq/L Anion Gap 10.0 (5-15) MEQ/L BUN 82 H (9-20) mg/dL Creatinine 2.76 H (0.55-1.30) mg/dl Estimated GFR 17 ML/MIN Glucose 113 H (70-110) MG/DL Calcium 8.8 (8.5-10.1) mg/dL Total Bilirubin 0.40 (0.2-1.0) mg/dL AST 33 (15-37) U/L ALT 29 (12-78) U/L Alkaline Phosphatase 146 H (46-116) U/L Troponin I (0.000-0.056) ng/ml Serum Total Protein 7.2 (6.4-8.2) gm/dL Albumin 3.5 (3.4-5.0) g/dL Amylase 48 (25-115) U/L Lipase 277 (73-393) U/L Ur Collection Type Urine Color (YELLOW) Urine Appearance (CLEAR) Urine pH (5-6) Ur Specific Carver (1.005-1.025) Urine Protein (Negative) Urine Ketones (NEGATIVE) Urine Blood (0-5) Milton/ul Urine Nitrite (NEGATIVE) Urine Bilirubin (NEGATIVE) Urine Urobilinogen (0-1) mg/dL Ur Leukocyte Esterase (NEGATIVE) Urine Microscopic RBC (0-2) /HPF Urine Microscopic WBC (0-5) /HPF Urine Bacteria (NEGATIVE) /HPF Urine Glucose (NEGATIVE) mg/dL Specimen Received - Progress Progress: pain not gone completely Progress Note: 09/26/16 12:15 PATIENT GIVEN KLOR CON 40MEQ ORALLY, IV ROCEPHIN 1GM FOR URINARY TRACT INFECTION Discussed with DrAlexey Emerson (DISCUSSED WITH DR NERI AGUILAR AT 1230 FOR ADMISSION) - Departure Time of Disposition: 13:00 Departure Disposition: In-patient Admission Clinical Impression: DEHYDRATION, URINARY TRACT INFECTION Condition: Stable Critical Care Time: No Referrals: KELSI AGUILAR [Primary Care Provider] -
[2016-09-26] MEDS ORDERED: SUBLIMAZE 100 MCG/2 ML IV ONE (11:35)
[2016-09-26 11:43] LABS: ALBUMIN 3.5 g/dL (3.4-5.0); BILIRUBIN,TOTAL 0.4 mg/dL (0.2-1.0); Carbon Dioxide 35.9 mEq/L (21-32); Total Protein 7.2 gm/dL (6.4-8.2)
[2016-09-26] MEDS ORDERED: SUBLIMAZE 100 MCG/2 ML ONE (11:44)
[2016-09-26 11:46] LABS: Potassium 2.9 mEq/L (3.5-5.1)
[2016-09-26 11:47] LABS: ANISOCYTOSIS 1+; Basophil 3 % (0.0-1.0); Platelet Estimate NORMAL (NORMAL); Poikilocytosis 1+; Total Cells Counted 100
[2016-09-26 11:51] LABS: Collection Type CATH; Glucose NEGATIVE (NEGATIVE); Leukocyte Esterase 2+ (NEGATIVE)
[2016-09-26 11:52] LABS: ADD URINE CULTURE? YES (NO); Bilirubin NEGATIVE (NEGATIVE); Blood 50 Ery/ul (0-5); COMPLETE URINE MICROSCOPIC? YES
[2016-09-26] MEDS ORDERED: Klor Con 10 MEQ PO ONE ×2 (11:56→12:01)
--- NOTE | 2016-09-26 11:57 | XRAY ---
Exam: AP upright portable chest film from 1140 hrs. on 09/26/2016. Comparison: AP portable chest film from 01/28/2016. Indication: Cough. Findings: The transverse heart size is at least mildly enlarged representing no significant change from 01/28/2016. Atherosclerotic calcification and moderate tortuosity of the thoracic aorta are seen. A few small granulomatous calcifications overlie the left hilum. Otherwise, the pavithra and mediastinal structures appear unremarkable. I see no air space infiltrates, vascular congestion, pneumothorax, or pleural fluid. Multiple right-sided rib fracture deformities are again seen. There is lower thoracic dextroscoliosis and multilevel kyphoplasty's seen. Impression: 1. Mild cardiomegaly without evidence of acute failure or cardiac decompensation. This is stable. 2. No air space infiltrates to suggest focal pneumonia or other acute cardiopulmonary disease is seen. 3. Multiple old right-sided rib fracture deformities and a few stable left perihilar granulomatous calcifications are seen.
[2016-09-26 12:11] LABS: Bacteria MODERATE /HPF (NEGATIVE); WBC >100 /HPF (0-5)
[2016-09-26] MEDS ORDERED: ROCEPHIN 1 Gm-D5w 50 ml Bag** 1 G/50 ML IVPB IV STA (12:14)
[2016-09-26] MEDS ORDERED: ROCEPHIN 1 Gm-D5w 50 ml Bag** 1 G/50 ML IVPB IV ONE (12:17)
[2016-09-26] MEDS ORDERED: Ativan 1 MG PO PRN (13:05)
[2016-09-26] MEDS: ULTRAM 50 MG PO PRN ×2 (14:45→21:10)
[2016-09-26] MEDS: Sodium Chloride 0.9% W/ 20 mEq KCl/LITER 1,000 ML IV SCH (16:29)
[2016-09-26] MEDS ORDERED: MEDICATION INTERVENTION MC PRN (17:25)
[2016-09-26] MEDS ORDERED: POTASSIUM CHLORIDE 20 mEq IN WATER 100ML 100 ML IV ONE (17:54)
--- NOTE | 2016-09-26 18:19 | PCM.HP ---
History of Present Illness - Chief Complaint Chief Complaint: DEHYDRATION Date: 09/26/16 History of Present Illness: is a 85 year old female. Who suffers from chronic diastolic heart failure. She began having increased fatigue and weakness and vomiting. She had her diuretics increased prior to this briefly and just decreased yesterday. She has not been eating or drinking for 2 days. SHe was found to have UTI in ED and low K as well as acute renal failure from dehydration. - Review of Systems Constitutional: Fatigue, Lethargy, No Fever, No Chills Eyes: No Symptoms Ears, Nose, & Throat: No Symptoms Respiratory: No Cough, No Short Of Breath Cardiac: No Chest Pain, No Edema, No Syncope Abdominal/Gastrointestinal: Nausea, Vomiting, No Abdominal Pain, No Diarrhea Genitourinary Symptoms: Frequency, No Dysuria Musculoskeletal: No Back Pain, No Neck Pain Skin: No Rash Neurological: No Dizziness, No Focal Weakness, No Sensory Changes Psychological: No Symptoms Endocrine: No Symptoms Hematologic/Lymphatic: No Symptoms Immunological/Allergic: No Symptoms Medications & Allergies Home Medications: Home Medication List Calcium Carbonate/Vitamin D3 [Calcium 600-Vit D3 400 Tablet] 1 each PO BID 08/22 [History Confirmed 09/26/16] Levothyroxine Sodium 100 Mcg [Synthroid 100 Mcg] 100 mcg PO DAILY 08/23/15 [History Confirmed 09/26/16] Multivitamin [Multi-Vitamin Daily] 1 each PO HS 01/28/16 [History Confirmed 03/03] Acetaminophen 325 mg [Tylenol 325 mg] 650 mg PO Q4H PRN PRN #0 tablet [Rx Confirmed 09/26/16] Atenolol 50 mg [Tenormin 50 mg] 50 mg PO DAILY #0 tablet 03/16/16 [Rx Confirmed 09/26/16] Enalapril Maleate 10 mg [Vasotec 10 MG] 10 mg PO DAILY #0 tablet 03/16/16 [Rx Confirmed 09/26/16] Tramadol HCl [Ultram 50 mg Tablet] 50 mg PO Q6HPRN PRN #90 tablet 03/16/16 [Rx Confirmed 09/26/16] Aspirin 1 tab PO HS 08/21/16 [History Confirmed 09/26/16] Amiodarone HCl 200 mg [Cordarone 200 MG] 200 mg PO DAILY 09/02/16 [ History Confirmed 09/26/16] Lorazepam 1 mg [Ativan 1 MG] 1 mg PO BID 09/02/16 [History Confirmed 09/26] Tapentadol HCl [Nucynta ER] 200 mg PO BID 09/02/16 [History Confirmed 09/26/16] Triamcinolone Acetonide 0.1% [Kenalog 0.1% Ointment] 15 gm TP DAILY [History Confirmed 09/26/16] Potassium Chloride 20 Meq [Klor-Con 20 MEQ] 20 meq PO DAILY 09/26/16 [History Confirmed 09/26/16] Pramipexole Di-HCl 0.5 mg [Mirapex 0.5 MG Tablet] 0.5 mg PO DAILY PRN PRN 09/26/16 [History Confirmed 09/26/16] Torsemide 100 mg PO DAILY 09/26/16 [History Confirmed 09/26/16] Allergies/Adverse Reactions: Allergies Allergy/AdvReac Type Severity Reaction Status Date / Time meperidine HCl [From Demerol] Allergy Mild Headache Verified 09/26/16 10:47 - Past Medical History Past Medical History: Yes Neurological History: No Pertinent History ENT History: Cataracts Cardiac History: Arrhythmia, Hypertension Respiratory History: No Pertinent History Endocrine Medical History: Hypothyroidism Musculoskelatal History: Fractures, Osteoporosis GI Medical History: Hemorrhoids, Irritable Bowel History: No Pertinent History Pyscho-Social History: Anxiety Reproductive Disorders: Breast Cancer Comment: broken neck - Female History Are you now?: No - Past Surgical History Past Surgical History: Yes Neuro Surgical History: No Pertinent History Cardiac History: No Pertinent History Respiratory Surgery: No Pertinent History GI Surgical History: No Pertinent History Genitourinary Surgical Hx: No Pertinent History Musculskeletal Surgical Hx: Orthopedic Surgery 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 Other Surgical History: back surgery- 5 yrsago; cataract surgery both eyes - Social History Smoking Status: Never smoker Exposure to second hand smoke: No Alcohol: None Drug Use: none - Physical Exam Vital Signs: Vital Signs - 24 hr Temp Pulse Resp BP Pulse Ox 09/26/16 16:00 97.4 F 78 20 110/68 92 L 09/26/16 14:47 97.4 F 76 18 120/68 96 09/26/16 14:36 75 16 97 09/26/16 14:20 97.4 F 76 120/68 09/26/16 13:00 94 L 09/26/16 11:59 64 16 100/54 95 09/26/16 10:28 97.7 F 74 16 115/57 94 L General Appearance: no apparent distress, alert Neurologic Exam: alert, oriented x 3, cooperative, normal mood/affect, nml cerebellar function, nml station & gait, No motor deficits Eye Exam: PERRL/EOMI, eyes nml inspection Ears, Nose, Throat Exam: pharynx normal, moist mucous membranes Neck Exam: normal inspection, non-tender, supple, full range of motion Respiratory Exam: crackles/rales (fine rales bilateral), No respiratory distress Cardiovascular Exam: normal heart sounds, normal peripheral pulses, irregular, No edema Gastrointestinal/Abdomen Exam: soft, normal bowel sounds, No tenderness, No mass Back Exam: normal inspection, normal range of motion, No CVA tenderness, No vertebral tenderness Extremity Exam: normal inspection, normal range of motion Skin Exam: normal color, warm, dry, other (redness no warmth bilateral lower extremities.), No rash Lymphatic Exam: No adenopathy Results - Labs Lab/Micro Results: Lab Results-Last 24 Hours 09/26/16 09/26/16 Range/Units 14:34 17:12 Troponin I < 0.017 < 0.017 (0.000-0.056) ng/ml - Other Procedures and Tests Respiratory Therapy 09/26/16 13:01 Oxygen NASAL CANNULA 2 lpm Assessment/Plan (1) Acute kidney failure Current Visit: Yes Status: Acute Assessment & Plan: secondary to diuretic with her vomiting and lack of po intake secondary to her urinary tract infection with resulting severe hypokalemia. correct hypokalemia slow gentle hydration monitor kidney function without causing a flair of the heart failure again currently at 50 ml/h and tolerating po now use rocephin for the uti culture pending. 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
[2016-09-26] MEDS: THERAGRAN MULTIVITAMIN PO SCH (21:10)
[2016-09-26] MEDS: Ecotrin 325 MG PO SCH (21:10)
[2016-09-26] MEDS: Calcium 500MG W/Vit D Tablet PO SCH (21:10)
[2016-09-26] MEDS ORDERED: [UNRECOGNIZED DRUG - OTHER] PO SCH (22:00)
[2016-09-26] MEDS ORDERED: CALCIUM CARBONATE PO SCH (22:00)
[2016-09-26] MEDS ORDERED: NON-FORMULARY ITEM (Tapentadol Hcl [Nucynta Er] 200 MG) PO SCH (22:00)
[2016-09-26] MEDS ORDERED: NON-FORMULARY ITEM (Multivitamin [Multi-Vitamin Daily] 1 EACH) PO SCH (22:00)
[2016-09-26] MEDS ORDERED: ASPIRIN PO SCH (22:00)
[2016-09-26] MEDS ORDERED: VITAMIN D3 PO SCH (22:00)
[2016-09-27] MEDS: ULTRAM 50 MG PO PRN ×2 (04:00→09:44)
[2016-09-27 06:13] LABS: Mean Cell Volume 89.5 fl (78-100); Mean Corpuscular Hemoglobin 28.7 pg (26-32); Mean Platelet Volume 9.4 fl (6-9.5); Platelet Count 297 K/mm3 (150-450); Red Blood Count 4.11 M/mm3 (4.1-5.4); Red Cell Distribution Width 19.6 % (11.5-14.0); White Blood Count 5.8 K/mm3 (4.0-10.5)
[2016-09-27 06:30] LABS: ANION GAP 11.9 MEQ/L (5-15); Carbon Dioxide 33.2 mEq/L (21-32); Potassium 3.2 mEq/L (3.5-5.1)
--- NOTE | 2016-09-27 08:05 | PCM.NOTE ---
Date and Time: 09/27/16 0757 Subjective Assessment: feeling better today eating has not been out of bed no pain when in bed no swelling now Objective Exam General Appearance: no apparent distress, alert Neurologic Exam: alert, oriented x 3, cooperative, normal mood/affect Skin Exam: normal color, warm, dry Eye Exam: PERRL, EOMI, eyes nml inspection, No scleral icterus Ears, Nose, Throat Exam: normal ENT inspection, pharynx normal, moist mucous membranes Neck Exam: normal inspection, non-tender, supple, full range of motion Respiratory Exam: crackles/rales, No respiratory distress Cardiovascular Exam: murmur, irregular, No edema Gastrointestinal/Abdomen Exam: soft, No tenderness, No mass Extremity Exam: normal inspection, No calf tenderness Back Exam: normal inspection, normal range of motion, No CVA tenderness, No vertebral tenderness Pelvic Exam: deferred Rectal Exam: deferred OBJECTIVE DATA Vital Signs: Vital Signs - 24 hr Temp Pulse Resp BP Pulse Ox 09/27/16 04:00 98.6 F 69 18 120/71 94 L 09/27/16 00:00 98.7 F 62 18 109/55 95 09/26/16 20:59 95 09/26/16 20:00 97.7 F 82 18 104/56 92 L 09/26/16 16:00 97.4 F 78 20 110/68 92 L 09/26/16 14:47 97.4 F 76 18 120/68 96 09/26/16 14:36 75 16 97 09/26/16 14:20 97.4 F 76 120/68 09/26/16 13:00 94 L 09/26/16 11:59 64 16 100/54 95 09/26/16 10:28 97.7 F 74 16 115/57 94 L Pain Assessment - Last Documented Pain Intensity 7 Pain Scale Used 0-10 Pain Scale Intake and Output: Intake & Output 09/24/16 09/25/16 09/26/16 09/27/16 11:59 11:59 11:59 11:59 Intake Total 2541 Output Total 5500 Balance -2959 Weight 66.366 kg Lab Results: Lab Results-Last 24 Hours 09/26/16 09/26/16 09/26/16 Range/Units 14:34 17:12 23:45 WBC (4.0-10.5) K/mm3 RBC (4.1-5.4) M/mm3 Hgb (12.0-16.0) gm/dl Hct (35-47) % MCV (78-100) fl MCH (26-32) pg MCHC (32-36) g/dl RDW (11.5-14.0) % Plt Count (150-450) K/mm3 MPV (6-9.5) fl Sodium (136-145) mEq/L Potassium 3.4 L (3.5-5.1) mEq/L Chloride (98-107) mEq/L Carbon Dioxide (21-32) mEq/L Anion Gap (5-15) MEQ/L BUN (9-20) mg/dL Creatinine (0.55-1.30) mg/dl Estimated GFR ML/MIN Glucose (70-110) MG/DL Calcium (8.5-10.1) mg/dL Troponin I < 0.017 < 0.017 (0.000-0.056) ng/ml 09/27/16 09/27/16 Range/Units 05:30 05:30 WBC 5.8 (4.0-10.5) K/mm3 RBC 4.11 (4.1-5.4) M/mm3 Hgb 11.8 L (12.0-16.0) gm/dl Hct 36.8 (35-47) % MCV 89.5 (78-100) fl MCH 28.7 (26-32) pg MCHC 32.1 (32-36) g/dl RDW 19.6 H (11.5-14.0) % Plt Count 297 (150-450) K/mm3 MPV 9.4 (6-9.5) fl Sodium 132 L (136-145) mEq/L Potassium 3.2 L (3.5-5.1) mEq/L Chloride 90 L (98-107) mEq/L Carbon Dioxide 33.2 H (21-32) mEq/L Anion Gap 11.9 (5-15) MEQ/L BUN 65 H (9-20) mg/dL Creatinine 1.92 H (0.55-1.30) mg/dl Estimated GFR 27 ML/MIN Glucose 99 (70-110) MG/DL Calcium 8.7 (8.5-10.1) mg/dL Troponin I (0.000-0.056) ng/ml Multi-Disciplinary Progress Notes: Multi-Disciplinary Progress Notes 09/26/16 18:19 RT Documentation Review by Jenny Mortensen RT Interventions/Assessments/Treatments Oxygen NASAL CANNULA 2 lpm Start: 09/26/16 13: 01 Freq: Status: Active Document 09/26/16 14:36 ST (Rec: 09/26/16 14:42 ST [email or web address]) Respiratory Assessment-RT RT Evaluation-RT Initial Evaluation Respiratory Treatment Given-RT No Date-RT 09/26/16 Time-RT 14:33 Diagnosis-RT dehydration Pulmonary History-RT no respiratory history Home Respiratory Medications and Oxygen- no RT O2 Delivery Room Air O2 Sat by Pulse Oximetry (95-100) 97 Resting Yes Pulse Rate (60-90 beats/min) 75 Respiratory Rate (12-24 breaths/min) 16 Respiratory Effort-RT Easy Sputum Amount None Mental Status-RT Alert Last Chest X-Ray Results-RT . Mild cardiomegaly without evidence of acute failure or cardiac decompensation. This is stable. 2. No air space infiltrates to suggest focal pneumonia or other acute cardiopulmonary disease is seen. 3. Multiple old right-sided rib fracture deformities and a few stable left perihilar granulomatous calcifications are seen. Respiratory Symptoms-RT No Difficulties Comments-RT pt was resting comfortably in no signs of respiratory distress Respiratory Assessments/Treatments reviewed by Jenny Mortensen on 09/26/16 at 1819. 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 Current Visit: Yes Status: Chronic Code(s): I11.0 - HYPERTENSIVE HEART DISEASE WITH HEART FAILURE; I50.30 - UNSPECIFIED DIASTOLIC (CONGESTIVE) HEART FAILURE (4) Hypokalemia Current Visit: Yes Status: Acute Code(s): E87.6 - HYPOKALEMIA (5) Chronic atrial fibrillation Current Visit: Yes Status: Chronic Code(s): I48.2 - CHRONIC ATRIAL FIBRILLATION (6) Pelvis fracture, right Current Visit: Yes Status: Acute Qualifiers: Encounter type: subsequent encounter Pelvic bone location: pubis Sublocation of pubis: other portion of pubis Fracture type: closed Code(s): S32.9XXA - FRACTURE OF UNSP PARTS OF LUMBOSACRAL SPINE AND PELVIS, INIT
[2016-09-27] MEDS: TENORMIN 50 MG PO SCH (09:35)
[2016-09-27] MEDS: ROCEPHIN 1 Gm-D5w 50 ml Bag** 1 G/50 ML IVPB IV SCH (09:35)
[2016-09-27] MEDS: Calcium 500MG W/Vit D Tablet PO SCH ×2 (09:36→21:02)
[2016-09-27] MEDS: Cordarone 200 MG PO SCH (09:36)
[2016-09-27] MEDS: SYNTHROID 100 MCG PO SCH (09:36)
[2016-09-27] MEDS: Klor Con 10 MEQ PO SCH ×3 (09:36→21:04)
[2016-09-27] MEDS ORDERED: NON-FORMULARY ITEM (Potassium Chloride 20 Meq [Klor-Con 20 Meq] 20 MEQ) PO SCH (10:00)
[2016-09-27] MEDS ORDERED: Klor Con 10 MEQ PO SCH (10:00)
[2016-09-27] MEDS ORDERED: Vasotec 10 MG PO SCH (10:00)
[2016-09-27] MEDS: PATIENT OWN MEDICATION PO SCH ×2 (14:18→21:56)
[2016-09-27] MEDS: Sodium Chloride 0.9% W/ 20 mEq KCl/LITER 1,000 ML IV SCH (15:24)
[2016-09-27] MEDS: TYLENOL 325 MG PO PRN ×2 (15:24→23:12)
[2016-09-27] MEDS: Mirapex 0.5 MG Tablet PO PRN (21:02)
[2016-09-27] MEDS: Ecotrin 325 MG PO SCH (21:02)
[2016-09-27] MEDS: THERAGRAN MULTIVITAMIN PO SCH (21:05)
[2016-09-28 06:19] LABS: ANION GAP 11.3 MEQ/L (5-15); Carbon Dioxide 32.3 mEq/L (21-32); MAGNESIUM 2.4 mg/dL (1.8-2.4); Potassium 3.8 mEq/L (3.5-5.1)
--- NOTE | 2016-09-28 07:35 | PCM.NOTE ---
Date and Time: 09/28/16 0729 Subjective Assessment: feeling better today has agreed she needs extra help and would like to go to senior living for rehab with the pelvic fracture Objective Exam General Appearance: no apparent distress Neurologic Exam: alert, oriented x 3, cooperative Skin Exam: warm, dry Ears, Nose, Throat Exam: moist mucous membranes Neck Exam: non-tender, supple Respiratory Exam: crackles/rales Cardiovascular Exam: murmur, irregular Gastrointestinal/Abdomen Exam: soft, normal bowel sounds, No tenderness Extremity Exam: No calf tenderness, No pedal edema OBJECTIVE DATA Vital Signs: Vital Signs - 24 hr Temp Pulse Resp BP Pulse Ox 09/28/16 04:00 98.1 F 78 20 158/88 95 09/28/16 00:00 98.0 F 76 20 143/72 94 L 09/27/16 20:00 98.0 F 70 16 117/59 93 L 09/27/16 16:50 98.3 F 80 18 137/77 92 L 09/27/16 12:00 97.9 F 77 18 104/51 92 L 09/27/16 09:35 88 09/27/16 08:07 94 L 09/27/16 08:05 97.7 F 77 19 121/61 91 L Pain Assessment - Last Documented Pain Intensity 9 Pain Scale Used 0-10 Pain Scale Intake and Output: Intake & Output 09/25/16 09/26/16 09/27/16 09/28/16 11:59 11:59 11:59 11:59 Intake Total 2761 1653 Output Total 7960 2650 Balance -3039 -997 Weight 66.366 kg Lab Results: Lab Results-Last 24 Hours 09/28/16 Range/Units 05:20 Sodium 135 L (136-145) mEq/L Potassium 3.8 (3.5-5.1) mEq/L Chloride 95 L (98-107) mEq/L Carbon Dioxide 32.3 H (21-32) mEq/L Anion Gap 11.3 (5-15) MEQ/L BUN 43 H (9-20) mg/dL Creatinine 1.44 H (0.55-1.30) mg/dl Estimated GFR 37 ML/MIN Glucose 93 (70-110) MG/DL Calcium 9.1 (8.5-10.1) mg/dL Magnesium 2.4 (1.8-2.4) mg/dL Assessment/Plan (1) Acute kidney failure Current Visit: Yes Status: Acute Assessment & Plan: improved d/c fluids hold torsemide still today await culture results on rocephin for uti with her right pubis fracture she needs rehab and recommend rehab at [facility] given her difficulty thus far at home with home PT and inability to leave her at home alone. plan for d/c to [facility] tomorrow if doing well on torsemide 100 mg once a day and KCl 20 mEq daily and antibiotic for the UTI pending culture results. with PT/OT to work on the pubis fracture rehab. 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 Current Visit: Yes Status: Chronic Code(s): I11.0 - HYPERTENSIVE HEART DISEASE WITH HEART FAILURE; I50.30 - UNSPECIFIED DIASTOLIC (CONGESTIVE) HEART FAILURE (4) Hypokalemia Current Visit: Yes Status: Acute Code(s): E87.6 - HYPOKALEMIA (5) Chronic atrial fibrillation Current Visit: Yes Status: Chronic Code(s): I48.2 - CHRONIC ATRIAL FIBRILLATION (6) Pelvis fracture, right Current Visit: Yes Status: Acute Qualifiers: Encounter type: subsequent encounter Pelvic bone location: pubis Sublocation of pubis: other portion of pubis Fracture type: closed Code(s): S32.9XXA - FRACTURE OF UNSP PARTS OF LUMBOSACRAL SPINE AND PELVIS, INIT
[2016-09-28] MEDS: Klor Con 10 MEQ PO SCH (09:10)
[2016-09-28] MEDS: TENORMIN 50 MG PO SCH (09:10)
[2016-09-28] MEDS: Cordarone 200 MG PO SCH (09:11)
[2016-09-28] MEDS: Calcium 500MG W/Vit D Tablet PO SCH ×2 (09:11→21:03)
[2016-09-28] MEDS: SYNTHROID 100 MCG PO SCH (09:11)
[2016-09-28] MEDS: PATIENT OWN MEDICATION PO SCH ×2 (09:11→21:04)
[2016-09-28] MEDS: ROCEPHIN 1 Gm-D5w 50 ml Bag** 1 G/50 ML IVPB IV SCH (09:12)
[2016-09-28] MEDS: Macrobid 100MG Capsule PO SCH ×2 (14:13→17:13)
[2016-09-28] MEDS: ULTRAM 50 MG PO PRN ×2 (18:58→18:59)
[2016-09-28] MEDS: Ecotrin 325 MG PO SCH (21:02)
[2016-09-28] MEDS: THERAGRAN MULTIVITAMIN PO SCH (21:02)
[2016-09-28] MEDS: TYLENOL 325 MG PO PRN (23:52)
[2016-09-29] MEDS: Mirapex 0.5 MG Tablet PO PRN (01:07)
[2016-09-29] MEDS: ULTRAM 50 MG PO PRN (01:07)
[2016-09-29] MEDS: TYLENOL 325 MG PO PRN (04:31)
[2016-09-29] MEDS: Calcium 500MG W/Vit D Tablet PO SCH (08:14)
[2016-09-29] MEDS: TENORMIN 50 MG PO SCH (08:14)
[2016-09-29] MEDS: Klor Con 10 MEQ PO SCH (08:15)
[2016-09-29] MEDS: Macrobid 100MG Capsule PO SCH (08:15)
[2016-09-29] MEDS: PATIENT OWN MEDICATION PO SCH (08:16)
[2016-09-29] MEDS: SYNTHROID 100 MCG PO SCH (08:16)
[2016-09-29] MEDS: Cordarone 200 MG PO SCH (08:16)
--- NOTE | 2016-09-29 10:09 | PCM.DS ---
Discharge Summary Date of Admission: 09/26/16 14:07 Admitting Physician: KELSI AGUILAR Primary Care Provider: KELSI AGUILAR Allergies Allergies meperidine HCl [From Demerol] Allergy (Mild, Verified 09/26/16 10:47) Headache Hospital Summary - Hospital Course Hospital Course: patient was admitted and cared for by Dr Aguilar with dehydration, UTI and weakness. she has improved and is feeling better. going to [facility] for a rehab stay - Vitals & Intake/Output Vital Signs: Vital Signs Temperature 98.3 F 09/29/16 08:28 Pulse Rate 104 H 09/29/16 08:28 Respiratory Rate 22 09/29/16 08:28 Blood Pressure 133/85 09/29/16 08:28 O2 Sat by Pulse Oximetry 94 L 09/29/16 08:28 Intake & Output: Intake & Output 09/26/16 09/27/16 09/28/16 09/29/16 11:59 11:59 11:59 11:59 Intake Total 2761 2133 2340 Output Total 5800 2650 1400 Balance -3039 -517 940 Weight 66.366 kg 66.366 kg - Lab Result Diagrams: 09/27/16 05:30 09/28/16 05:20 - Procedures and Test Procedures and Tests throughout Hospitalization: Therapy Orders & Screens 09/26/16 13:01 Oxygen NASAL CANNULA 2 lpm Comment: Discharge Exam General Appearance: no apparent distress, alert Respiratory Exam: normal breath sounds, lungs clear, No respiratory distress Cardiovascular Exam: regular rate/rhythm, normal heart sounds Gastrointestinal/Abdomen Exam: soft, No tenderness, No mass Extremity Exam: normal inspection, normal range of motion Final Diagnosis/Problem List - Final Discharge Diagnosis/Problem (1) Acute kidney failure Current Visit: Yes Status: Acute Assessment & Plan: improved (2) Dehydration Current Visit: Yes Status: Acute Assessment & Plan: resolved (3) Hypokalemia Current Visit: Yes Status: Acute Assessment & Plan: replaced sodium and potassium are normal (4) Pelvis fracture, right Current Visit: Yes Status: Acute (5) UTI (urinary tract infection) Current Visit: Yes Status: Acute Assessment & Plan: d/c on macrobid based on urine c and s - Discharge Disposition: TX TO [facility] Condition: Stable Prescriptions: New Bisacodyl 5 mg [Dulcolax 5 mg] 5 mg PO DAILY PRN PRN #30 tablet.ec PRN Reason: Constipation Nitrofurantoin Macro 100 mg [Macrobid 100MG Capsule] 100 mg PO BIDWM # 14 capsule Tramadol HCl 50 mg [Ultram 50 mg] 50 mg PO QID PRN PRN #120 tablet PRN Reason: Pain Continue Levothyroxine Sodium 100 Mcg [Synthroid 100 Mcg] 100 mcg PO DAILY Calcium Carbonate/Vitamin D3 [Calcium 600-Vit D3 400 Tablet] 1 each PO BID Multivitamin [Multi-Vitamin Daily] 1 each PO HS Atenolol 50 mg [Tenormin 50 mg] 50 mg PO DAILY #0 tablet Acetaminophen 325 mg [Tylenol 325 mg] 650 mg PO Q4H PRN PRN #0 tablet PRN Reason: Pain, Fever, Headache Enalapril Maleate 10 mg [Vasotec 10 MG] 10 mg PO DAILY #0 tablet Aspirin 1 tab PO HS Amiodarone HCl 200 mg [Cordarone 200 MG] 200 mg PO DAILY Tapentadol HCl [Nucynta ER] 200 mg PO BID Triamcinolone Acetonide 0.1% [Kenalog 0.1% Ointment] 15 gm TP DAILY Torsemide 100 mg PO DAILY Potassium Chloride 20 Meq [Klor-Con 20 MEQ] 20 meq PO DAILY Pramipexole Di-HCl 0.5 mg [Mirapex 0.5 MG Tablet] 0.5 mg PO DAILY PRN PRN PRN Reason: restless legs Lorazepam 1 mg [Ativan 1 MG] 1 mg PO BID #60 tablet Discontinued Tramadol HCl [Ultram 50 mg Tablet] 50 mg PO Q6HPRN PRN #90 tablet PRN Reason: Pain Follow up with: KELSI AGUILAR [Primary Care Provider] - Forms: Patient Portal Information
[2016-09-29 13:29] VITALS: BP 143/91; PULSE 89; O2SAT 97
== END 2016-09-29 13:04 | DRG 683 ==
LOC: ED 10:24 → MED SURG 14:07
PROVIDERS: ADMIT Family Medicine; ATTEND Family Medicine
DX: N17.9 Acute kidney failure, unspecified (principal); I50.32 Chronic diastolic (congestive) heart failure; N39.0 Urinary tract infection, site not specified; I11.0 Hypertensive heart disease with heart failure; E86.0 Dehydration; E87.6 Hypokalemia; S32.9XXD Fracture of unspecified parts of lumbosacral spine and pelvis, subsequent encounter for fracture with routine healing; E03.9 Hypothyroidism, unspecified; M81.0 Age-related osteoporosis without current pathological fracture; Z85.3 Personal history of malignant neoplasm of breast; I48.2 Chronic atrial fibrillation; Z79.899 Other long term (current) drug therapy
CPT/HCPCS: 36000; 36415; 71010; 80048; 80053; 81000; 82150; 83690; 83735; 84132; 84484; 85025; 85027; 85610; 87077; 87086; 87186; 93005; 94760; 96360; 96365; 96366; 96374; 96375; 99285; J0696; J2405; J3010; J3480; A9270-GY

== ENCOUNTER 2016-10-30 07:47 | Emergency (ER) | payer MEDICARE ==
[2016-10-30] MEDS ORDERED: Adacel Vial IM ONE ×2 (08:04→08:36)
--- NOTE | 2016-10-30 08:10 | ERPHSYRPT ---
- History of Present Illness Time Seen by Provider: 10/30/16 08:04 Source: patient, family, group home records Physician History: CC: fall Hx: 85 y/o patient at [facility] rehab. She sits on side of bed and falls asleep. Fell this AM. Hit her head. Has a skin tear on left leg. She is in rehab for pelvic fx. Unsure loc. She had prior neck fx. Family reports she has been sleepy more than usual. Occurred: this morning Loss of Consciousness: unsure Allergies/Adverse Reactions: meperidine HCl [From Demerol] Allergy (Mild, Verified 10/30/16 08:16) Headache Home Medications: Calcium Carbonate/Vitamin D3 [Calcium 600-Vit D3 400 Tablet] 1 each PO BID 08/22 [History] Levothyroxine Sodium 100 Mcg [Synthroid 100 Mcg] 100 mcg PO DAILY 08/23/15 [History] Aspirin 1 tab PO HS 08/21/16 [History] Amiodarone HCl 200 mg [Cordarone 200 MG] 200 mg PO DAILY 09/02/16 [History ] Tapentadol HCl [Nucynta ER] 200 mg PO BID 09/02/16 [History] Potassium Chloride 20 Meq [Klor-Con 20 MEQ] 20 meq PO DAILY 09/26/16 [History] Pramipexole Di-HCl 0.5 mg [Mirapex 0.5 MG Tablet] 0.5 mg PO DAILY PRN PRN 09/26/16 [History] Torsemide 100 mg PO DAILY 09/26/16 [History] Hx Tetanus, Diphtheria Vaccination/Date Given: No Hx Influenza Vaccination/Date Given: Yes Hx Pneumococcal Vaccination/Date Given: Yes - Review of Systems Constitutional: No Symptoms Respiratory: No Dyspnea Cardiac: No Chest Pain Abdominal/Gastrointestinal: No Abdominal Pain, No Nausea, No Vomiting Musculoskeletal: Neck Pain, Fall, No Back Pain Neurological: No Focal Weakness, No Parasthesia All Other Systems: Reviewed and Negative - Past Medical History Pertinent Past Medical History: Yes Neurological History: No Pertinent History ENT History: Cataracts Cardiac History: Arrhythmia, Hypertension Respiratory History: No Pertinent History Endocrine Medical History: Hypothyroidism Musculoskeletal History: Fractures, Osteoporosis GI Medical History: Hemorrhoids, Irritable Bowel History: No Pertinent History Psycho-Social History: Anxiety Female Reproductive Disorders: Breast Cancer Other Medical History: broken neck - Past Surgical History Past Surgical History: Yes Neuro Surgical History: No Pertinent History Cardiac: No Pertinent History Respiratory: No Pertinent History Gastrointestinal: No Pertinent History Genitourinary: No Pertinent History Musculoskeletal: Orthopedic Surgery 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 Other Surgical History: back surgery- 5 yrsago; cataract surgery both eyes - Social History Smoking Status: Never smoker Exposure to second hand smoke: No Drug Use: none Patient Lives Alone: No ([facility]) - Female History Hx Now: No - Nursing Vital Signs Nursing Vital Signs: Initial Vital Signs Temperature 98.8 F 10/30/16 08:05 Pulse Rate 74 10/30/16 08:05 Respiratory Rate 18 10/30/16 08:05 Blood Pressure 142/80 10/30/16 08:05 O2 Sat by Pulse Oximetry 99 10/30/16 08:05 Pain Scale Pain Intensity 5 - Malini Coma Score Best Eye Response (Garland): (4) open spontaneously Best Verbal Response (Garland): (5) oriented Best Motor Response (Garland): (6) obeys commands Garland Total: 15 - Physical Exam General Appearance: alert Head Injury: swelling (left frontal with ecchymosis) Eye Exam: PERRL/EOMI ENT Exam: airway nml Neck Exam: mid-line tenderness Respiratory/Chest Exam: normal breath sounds Cardiovascular Exam: normal heart sounds, regular rate/rhythm Gastrointestinal Exam: soft, No tenderness, No distention Extremity Exam: pedal edema, other (1cm skin tear left pretibial at site of prior laceration scar) Neurologic Exam: alert, oriented x 3, cooperative, sensation nml, No motor deficits Skin Exam: warm, dry - Course Nursing assessment & vital signs reviewed: Yes Ordered Tests: Active Orders 24 hr Category Date Time Status Cervical Collar Application STAT Care 10/30/16 08:04 Active Wound Care STAT Care 10/30/16 08:06 Active CERVICAL SPINE WO CONTRAST [CT] Stat Exams 10/30/16 08:04 Completed HEAD WITHOUT CONTRAST [CT] Stat Exams 10/30/16 08:04 Completed PELVIS (1 OR 2 VIEWS) Stat Exams 10/30/16 08:05 Completed CBC W DIFF Stat Lab 10/30/16 08:15 Completed CMP Stat Lab 10/30/16 08:15 Completed Medication Summary Discontinued Medications Generic Name Dose Route Start Last Admin Trade Name Freq PRN Reason Stop Dose Admin Diphtheria/Tetanus/Acell Pertussis 0.5 ml 10/30/16 08:04 10/30/16 08:39 Adacel Vial IM 10/30/16 08:05 0.5 ml .ONCE ONE Administration Diphtheria/Tetanus/Acell Pertussis Confirm 10/30/16 08:36 Adacel Vial Administered 10/30/16 08:37 Dose 0.5 ml IM .STK-MED ONE Lab/Rad Data: Laboratory Result Diagrams 10/30/16 08:15 10/30/16 08:15 Laboratory Results 10/30/16 10/30/16 Range/Units 08:15 08:15 WBC 4.4 (4.0-10.5) K/mm3 RBC 3.91 L (4.1-5.4) M/mm3 Hgb 11.2 L (12.0-16.0) gm/dl Hct 36.2 (35-47) % MCV 92.6 (78-100) fl MCH 28.6 (26-32) pg MCHC 30.9 L (32-36) g/dl RDW 17.5 H (11.5-14.0) % Plt Count 225 (150-450) K/mm3 MPV 9.1 (6-9.5) fl Gran % 64.7 (36.0-66.0) % Lymphocytes % 17.9 L (24.0-44.0) % Monocytes % 11.5 (0.0-12.0) % Eosinophils % 4.5 (0.00-5.0) % Basophils % 1.4 (0.0-0.4) % Basophils # 0.06 (0-0.4) Sodium 135 L (136-145) mEq/L Potassium 3.6 (3.5-5.1) mEq/L Chloride 96 L (98-107) mEq/L Carbon Dioxide 32.2 H (21-32) mEq/L Anion Gap 10.0 (5-15) MEQ/L BUN 26 H (9-20) mg/dL Creatinine 1.41 H (0.55-1.30) mg/dl Estimated GFR 38 ML/MIN Glucose 90 (70-110) MG/DL Calcium 9.0 (8.5-10.1) mg/dL Total Bilirubin 0.40 (0.2-1.0) mg/dL AST 40 H (15-37) U/L ALT 31 (12-78) U/L Alkaline Phosphatase 96 (46-116) U/L Serum Total Protein 6.7 (6.4-8.2) gm/dL Albumin 3.4 (3.4-5.0) g/dL - Progress Progress Note: 10/30/16 09:16 Labs and imaging reasuring. She only takes asa. Will return to [place] with instr. Counseled pt/family regarding: lab results, diagnosis, need for follow-up, rad results - Departure Time of Disposition: 09:17 Departure Disposition: Extended Care Facility Clinical Impression: Pelvic ring fracture with routine healing Fall Qualifiers: Encounter type: initial encounter Qualified Code(s): W19.XXXA - Unspecified fall, initial encounter Head contusion Qualifiers: Encounter type: initial encounter Contusion of head detail: orbital tissues Laterality: left Qualified Code(s): S05.12XA - Contusion of eyeball and orbital tissues, left eye, initial encounter Cervical strain Qualifiers: Encounter type: initial encounter Qualified Code(s): S16.1XXA - Strain of muscle, fascia and tendon at neck level, initial encounter Condition: Stable Critical Care Time: No Referrals: KELSI AGUILAR [Primary Care Provider] - Instructions: Prevent Falls, Closed Head Injury, Laceration Repair Steri-Strips Additional Instructions: Neuro checks per protocol. Wound care- strei strips on leg wound were applied.
[2016-10-30 08:12] VITALS: O2SAT 99
[2016-10-30 08:19] LABS: BASOPHIL % 1.4 % (0.0-0.4); Eosinophil % 4.5 % (0.00-5.0); Granulocytes % 64.7 % (36.0-66.0); Lymphocytes % 17.9 % (24.0-44.0); Mean Cell Volume 92.6 fl (78-100); Mean Corpuscular Hemoglobin 28.6 pg (26-32); Mean Platelet Volume 9.1 fl (6-9.5); Monocytes % 11.5 % (0.0-12.0); Platelet Count 225 K/mm3 (150-450); Red Blood Count 3.91 M/mm3 (4.1-5.4); Red Cell Distribution Width 17.5 % (11.5-14.0); White Blood Count 4.4 K/mm3 (4.0-10.5)
[2016-10-30 08:39] LABS: ALBUMIN 3.4 g/dL (3.4-5.0); BILIRUBIN,TOTAL 0.4 mg/dL (0.2-1.0); Carbon Dioxide 32.2 mEq/L (21-32); Potassium 3.6 mEq/L (3.5-5.1); Total Protein 6.7 gm/dL (6.4-8.2)
--- NOTE | 2016-10-30 08:59 | XRAY ---
Indication: Head injury following fall. Multiple contiguous axial images obtained through the head without contrast. Comparison: June 10, 2015. Stable age appropriate global atrophy and mild periventricular degenerative micro-ischemia bilaterally. No acute intracranial hemorrhage, abnormal extra-axial fluid collection, or mass effect. Fourth ventricle is midline without hydrocephalus. Bony calvarium intact. Visualized paranasal sinuses and mastoid air cells clear. Impression: Stable nonacute senile brain. CT DI 50.26
--- NOTE | 2016-10-30 09:06 | XRAY ---
Indication: Neck pain following fall. Multiple contiguous axial images obtained through the cervical spine. Sagittal and coronal reformatted images obtained. Comparison: June 10, 2015. Osseous structures remain demineralized. Old C2 and C6 fractures. No acute fracture, suspicious bony lesions, or spinal canal stenosis. Stable multilevel degenerative endplate spurring and bilateral facet arthropathy. Sagittal and coronal reformatted images demonstrates stable multilevel degenerative disc space narrowing and 2 mm anterolisthesis of C4 on C5. No acute compression fracture or jumped facet. Normal-appearing craniocervical junction. There remains heavy scattered vascular calcifications bilaterally. Base of the brain and lung apices unremarkable. Impression: 1. Again negative for acute fracture or spinal canal stenosis. 2. Old C2 and C6 fractures. 3. Stable osteopenia, multilevel degenerative changes, and minimal grade 1 C4 anterolisthesis. CTDI 73.73
--- NOTE | 2016-10-30 09:08 | XRAY ---
Indication: Pain following fall. Comparison: October 07, 2013. Single AP pelvis again demonstrates osteopenia, lumbosacral degenerative changes, and scattered vascular calcifications. New minimally displaced healing fractures involving the right superior/inferior pubic ramus.
[2016-10-30 09:34] VITALS: BP 133/80; PULSE 74
== END 2016-10-30 09:33 | disposition home or self-care (01) ==
LOC: ED 07:47
DX: S05.12XA Contusion of eyeball and orbital tissues, left eye, initial encounter (principal); S16.1XXA Strain of muscle, fascia and tendon at neck level, initial encounter; S32.810D Multiple fractures of pelvis with stable disruption of pelvic ring, subsequent encounter for fracture with routine healing; W06.XXXD Fall from bed, subsequent encounter
CPT/HCPCS: 36415; 70450; 72125; 72170; 80053; 85025; 90471; 90715; 99284; L0120

== ENCOUNTER 2017-02-20 16:30 | Observation (INO) | payer MEDICARE ==
[2017-02-20] MEDS ORDERED: Sodium Chloride 0.9% 1000 ML 1,000 ML IV STA (16:44)
[2017-02-20 16:50] LABS: Mean Cell Volume 88.6 fl (78-100); Mean Corpuscular Hemoglobin 28.3 pg (26-32); Mean Platelet Volume 9.2 fl (6-9.5); Platelet Count 248 K/mm3 (150-450); Red Blood Count 4.81 M/mm3 (4.1-5.4); Red Cell Distribution Width 20.3 % (11.5-14.0); White Blood Count 16.1 K/mm3 (4.0-10.5)
--- NOTE | 2017-02-20 16:50 | ERPHSYRPT ---
- History of Present Illness Time Seen by Provider: 02/20/17 16:47 Source: patient, family, EMS Exam Limitations: clinical condition Physician History: NH pt awoke at 4pm with confusion, couldn't state her birthdate, no emesis, no injury, hx uti and c diff, no dm, no recent fever Allergies/Adverse Reactions: meperidine HCl [From Demerol] Allergy (Mild, Verified 02/20/17 17:08) Headache Home Medications: Calcium Carbonate/Vitamin D3 [Calcium 600-Vit D3 400 Tablet] 1 each PO BID 08/22 [History] Levothyroxine Sodium 100 Mcg [Synthroid 100 Mcg] 100 mcg PO DAILY 08/23/15 [History] Amiodarone HCl 200 mg [Cordarone 200 MG] 200 mg PO DAILY 09/02/16 [History ] Tapentadol HCl [Nucynta ER] 200 mg PO BID 09/02/16 [History] Potassium Chloride 20 Meq [Klor-Con 20 MEQ] 20 meq PO DAILY 09/26/16 [History] Torsemide 100 mg PO DAILY 09/26/16 [History] Lorazepam 1 mg [Ativan 1 MG] 1 mg PO BID 01/18/17 [History] Multivitamin [Multivitamins] 1 each PO DAILY 01/18/17 [History] Hx Tetanus, Diphtheria Vaccination/Date Given: No Hx Influenza Vaccination/Date Given: Yes Hx Pneumococcal Vaccination/Date Given: Yes - Review of Systems Constitutional: Weakness, No Fever Eyes: No Discharge Ears, Nose, & Throat: No Mouth Swelling Respiratory: Dyspnea Cardiac: No Syncope Abdominal/Gastrointestinal: Diarrhea, No Vomiting Musculoskeletal: No Fall Skin: No Rash Neurological: No Focal Weakness Psychological: Memory Loss - Past Medical History Pertinent Past Medical History: Yes Neurological History: No Pertinent History ENT History: Cataracts Cardiac History: Arrhythmia, Hypertension Respiratory History: No Pertinent History Endocrine Medical History: Hypothyroidism Musculoskeletal History: Fractures, Osteoporosis GI Medical History: Hemorrhoids, Irritable Bowel History: No Pertinent History Psycho-Social History: Anxiety Female Reproductive Disorders: Breast Cancer Other Medical History: broken neck - Past Surgical History Past Surgical History: Yes Neuro Surgical History: No Pertinent History Cardiac: No Pertinent History Respiratory: No Pertinent History Gastrointestinal: No Pertinent History Genitourinary: No Pertinent History Musculoskeletal: Orthopedic Surgery 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 Other Surgical History: back surgery- 5 yrsago; cataract surgery both eyes - Social History Smoking Status: Never smoker Exposure to second hand smoke: No Drug Use: none Patient Lives Alone: No - Nursing Vital Signs Nursing Vital Signs: Initial Vital Signs Temperature 100.2 F 02/20/17 16:39 Pulse Rate 85 02/20/17 16:39 Respiratory Rate 20 02/20/17 16:39 Blood Pressure 115/56 02/20/17 16:39 O2 Sat by Pulse Oximetry 95 02/20/17 16:39 Pain Scale Pain Intensity 0 - Physical Exam General Appearance: no apparent distress Ears, Nose, Throat Exam: moist mucous membranes Neck Exam: normal inspection Respiratory Exam: wheezing, No respiratory distress Cardiovascular Exam: regular rate/rhythm Gastrointestinal/Abdomen Exam: soft, No rebound Back Exam: No vertebral tenderness Extremity Exam: pelvis stable Neurologic Exam: disoriented, confusion Skin Exam: warm, dry - Course Nursing assessment & vital signs reviewed: Yes EKG Interpreted by Me: Other (atrial fib 88 no stemi) - Radiology Exams Chest X-ray Interpretation: Reviewed by me, Negative - CT Exams Head CT Interpretation: Negative, Discussed w/radiologist Ordered Tests: Active Orders 24 hr Category Date Time Status 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 STAT Care 02/20/17 16:46 Active EKG-ER Only STAT Care 02/20/17 16:44 Active IV Insertion STAT Care 02/20/17 16:44 Active Oxygen-ED Only NASAL CANNULA 2 lpm Care 02/20/17 16:45 Active cath [Cath for Specimen-Straight] STAT Care 02/20/17 17:03 Active CHEST 1 VIEW (PORTABLE) Stat Exams 02/20/17 16:45 Completed HEAD WITHOUT CONTRAST [CT] Stat Exams 02/20/17 16:46 Completed BLOOD CULTURE Stat Lab 02/20/17 17:30 Received CBC W DIFF Stat Lab 02/20/17 16:49 Completed CMP Stat Lab 02/20/17 16:49 Completed CULTURE,URINE Stat Lab 02/20/17 17:40 Received Lactic Acid Stat Lab 02/20/17 17:35 Results Manual Differential NC Stat Lab 02/20/17 16:49 Completed TROPONIN Q3H Lab 02/20/17 17:07 Completed TROPONIN Q3H Lab 02/20/17 19:45 Ordered TROPONIN Q3H Lab 02/20/17 22:45 Ordered TROPONIN Q3H Lab 02/21/17 01:45 Ordered TROPONIN Q3H Lab 02/21/17 04:45 Ordered UA W/ MICROSCOPIC Stat Lab 02/20/17 17:40 Completed Respiratory Nebulizer STAT RT 02/20/17 16:51 Completed Medication Summary Discontinued Medications Generic Name Dose Route Start Last Admin Trade Name Freq PRN Reason Stop Dose Admin Albuterol/Ipratropium 3 ml 02/20/17 16:51 02/20/17 17:20 Duoneb 0.5-3 Mg/3 Ml Neb IH 02/20/17 16:52 3 ml STAT ONE Administration Albuterol/Ipratropium Confirm 02/20/17 17:02 Duoneb 0.5-3 Mg/3 Ml Neb Administered 02/20/17 17:03 Dose 3 ml IH .STK-MED ONE Sodium Chloride 1,000 mls @ 999 mls/hr 02/20/17 16:44 02/20/17 16:52 Sodium Chloride 0.9% 1000 Ml IV 02/20/17 17:44 999 mls/hr .Q1H1M STA Administration Sodium Chloride Confirm 02/20/17 16:52 Sodium Chloride 0.9% 1000 Ml Administered 02/20/17 16:53 Dose 1,000 mls @ ud .ROUTE .STK-MED ONE Ceftriaxone Sodium/Dextrose 1 g in 50 mls @ 100 mls/hr 02/20/17 18:17 18:24 Rocephin 1 Gm-D5w 50 Ml Bag IV 02/20/17 18:46 100 mls/hr STAT STA Administration Ceftriaxone Sodium/Dextrose Confirm 02/20/17 18:24 Rocephin 1 Gm-D5w 50 Ml Bag Administered 02/20/17 18:25 Dose 1 g in 50 mls @ ud IV .STK-MED ONE Potassium Chloride 10 meq 02/20/17 18:17 02/20/17 18:24 Klor Con 10 Meq PO 02/20/17 18:18 10 meq STAT ONE Administration Potassium Chloride Confirm 02/20/17 18:24 Klor Con 10 Meq Administered 02/20/17 18:25 Dose 10 meq PO .STK-MED ONE Lab/Rad Data: Laboratory Result Diagrams 02/20/17 16:49 02/20/17 16:49 Laboratory Results 02/20/17 02/20/17 02/20/17 Range/Units 17:40 17:35 17:07 WBC (4.0-10.5) K/mm3 RBC (4.1-5.4) M/mm3 Hgb (12.0-16.0) gm/dl Hct (35-47) % MCV (78-100) fl MCH (26-32) pg MCHC (32-36) g/dl RDW (11.5-14.0) % Plt Count (150-450) K/mm3 MPV (6-9.5) fl Segmented Neutrophils (36.0-66.0) % Lymphocytes (Manual) (24-44) % Monocytes (Manual) (0.0-12.0) % Differential Comment Platelet Estimate (NORMAL) Sodium (136-145) mEq/L Potassium (3.5-5.1) mEq/L Chloride (98-107) mEq/L Carbon Dioxide (21-32) mEq/L Anion Gap (5-15) MEQ/L BUN (9-20) mg/dL Creatinine (0.55-1.30) mg/dl Estimated GFR ML/MIN Glucose (70-110) MG/DL Lactic Acid 2.1 H (0.4-2.0) Calcium (8.5-10.1) mg/dL Total Bilirubin (0.2-1.0) mg/dL AST (15-37) U/L ALT (12-78) U/L Alkaline Phosphatase (46-116) U/L Troponin I < 0.017 (0.000-0.056) ng/ml Serum Total Protein (6.4-8.2) gm/dL Albumin (3.4-5.0) g/dL Ur Collection Type CATH Urine Color YELLOW (YELLOW) Urine Appearance SLIGHTLY CLOUDY (CLEAR) Urine pH 5.0 (5-6) Ur Specific [place] 1.010 (1.005-1.025) Urine Protein NEGATIVE (Negative) Urine Ketones NEGATIVE (NEGATIVE) Urine Blood TRACE NON-HEM (0-5) [place]/ul Urine Nitrite NEGATIVE (NEGATIVE) Urine Bilirubin NEGATIVE (NEGATIVE) Urine Urobilinogen NORMAL (0-1) mg/dL Ur Leukocyte Esterase 2+ (NEGATIVE) Urine Microscopic RBC 2-5 (0-2) /HPF Urine Microscopic WBC 25-50 (0-5) /HPF Ur Epithelial Cells FEW (FEW) /HPF Urine Bacteria MANY (NEGATIVE) /HPF Urine Culture Reflexed YES (NO) Urine Glucose NEGATIVE (NEGATIVE) mg/dL Specimen Received 02/20/17 1740 02/20/17 02/20/17 Range/Units 16:49 16:49 WBC 16.1 H (4.0-10.5) K/mm3 RBC 4.81 (4.1-5.4) M/mm3 Hgb 13.6 (12.0-16.0) gm/dl Hct 42.6 (35-47) % MCV 88.6 (78-100) fl MCH 28.3 (26-32) pg MCHC 31.9 L (32-36) g/dl RDW 20.3 H (11.5-14.0) % Plt Count 248 (150-450) K/mm3 MPV 9.2 (6-9.5) fl Segmented Neutrophils 94 H (36.0-66.0) % Lymphocytes (Manual) 3 L (24-44) % Monocytes (Manual) 3 (0.0-12.0) % Differential Comment NORMAL Platelet Estimate NORMAL (NORMAL) Sodium 131 L (136-145) mEq/L Potassium 2.9 L* (3.5-5.1) mEq/L Chloride 88 L (98-107) mEq/L Carbon Dioxide 30.6 (21-32) mEq/L Anion Gap 15.4 H (5-15) MEQ/L BUN 47 H (9-20) mg/dL Creatinine 2.43 H (0.55-1.30) mg/dl Estimated GFR 20 ML/MIN Glucose 102 (70-110) MG/DL Lactic Acid (0.4-2.0) Calcium 9.3 (8.5-10.1) mg/dL Total Bilirubin 1.00 (0.2-1.0) mg/dL AST 28 (15-37) U/L ALT 29 (12-78) U/L Alkaline Phosphatase 127 H (46-116) U/L Troponin I (0.000-0.056) ng/ml Serum Total Protein 7.7 (6.4-8.2) gm/dL Albumin 3.7 (3.4-5.0) g/dL Ur Collection Type Urine Color (YELLOW) Urine Appearance (CLEAR) Urine pH (5-6) Ur Specific [place] (1.005-1.025) Urine Protein (Negative) Urine Ketones (NEGATIVE) Urine Blood (0-5) [place]/ul Urine Nitrite (NEGATIVE) Urine Bilirubin (NEGATIVE) Urine Urobilinogen (0-1) mg/dL Ur Leukocyte Esterase (NEGATIVE) Urine Microscopic RBC (0-2) /HPF Urine Microscopic WBC (0-5) /HPF Ur Epithelial Cells (FEW) /HPF Urine Bacteria (NEGATIVE) /HPF Urine Culture Reflexed (NO) Urine Glucose (NEGATIVE) mg/dL Specimen Received - Progress Progress: improved Progress Note: 02/20/17 18:25 d/w Dr Godfrey for admit at 19:00 02/20/17 19:03 Discussed with : Epifanio Will see patient in: hospital (observation) Counseled pt/family regarding: lab results, diagnosis, rad results - Departure Time of Disposition: 19:04 Departure Disposition: Observation Clinical Impression: UTI (urinary tract infection) Qualifiers: Urinary tract infection type: acute cystitis Hematuria presence: with hematuria Qualified Code(s): N30.01 - Acute cystitis with hematuria Condition: Stable Critical Care Time: No Referrals: DAJA CAMACHO [Primary Care Provider] -
[2017-02-20] MEDS ORDERED: DUONEB 0.5-3 MG/3 ml Neb IH ONE ×2 (16:51→17:02)
[2017-02-20] MEDS ORDERED: Sodium Chloride 0.9% 1000 ML 1,000 ML ONE (16:52)
[2017-02-20 17:14] LABS: ALBUMIN 3.7 g/dL (3.4-5.0); ANION GAP 15.4 MEQ/L (5-15); Carbon Dioxide 30.6 mEq/L (21-32); Total Protein 7.7 gm/dL (6.4-8.2)
[2017-02-20 17:17] LABS: Potassium 2.9 mEq/L (3.5-5.1)
--- NOTE | 2017-02-20 17:23 | XRAY ---
Indication: Altered mental status. Possible fall. Multiple contiguous axial images obtained through the head without contrast. Comparison: January 19, 2017. Again age-appropriate global atrophy and moderate periventricular degenerative micro-ischemia bilaterally. No acute intracranial hemorrhage, abnormal extra-axial fluid collection, or mass effect. Fourth ventricle is midline without hydrocephalus. Stable dolichoectatic vertebral basilar arteries. Bony calvarium intact. Visualized paranasal sinuses and mastoid air cells clear. Impression: Stable nonacute senile brain. CTDI 68.93
--- NOTE | 2017-02-20 17:27 | XRAY ---
Indication: Altered mental status. Comparison: January 23, 2017. Portable chest again slightly underinflated and now appears clear. Heart remains borderline enlarged. Descending aorta remains tortuous. Bony thorax intact again with osteopenia, degenerative changes, and old right rib fractures. Impression: Nonacute chest with chronic features.
[2017-02-20 17:38] LABS: Lactic Acid 2.1 (0.4-2.0)
[2017-02-20 18:11] LABS: Collection Type CATH
[2017-02-20 18:12] LABS: ADD URINE CULTURE? YES (NO); Bacteria MANY /HPF (NEGATIVE); Bilirubin NEGATIVE (NEGATIVE); Blood TRACE NON-HEM Ery/ul (0-5); COMPLETE URINE MICROSCOPIC? YES; Epithelial Cells FEW /HPF (FEW); Glucose NEGATIVE (NEGATIVE); Leukocyte Esterase 2+ (NEGATIVE); WBC 25-50 /HPF (0-5)
[2017-02-20] MEDS ORDERED: Klor Con 10 MEQ PO ONE ×2 (18:17→18:24)
[2017-02-20] MEDS ORDERED: ROCEPHIN 1 Gm-D5w 50 ml Bag** 1 G/50 ML IVPB IV STA (18:17)
[2017-02-20] MEDS ORDERED: ROCEPHIN 1 Gm-D5w 50 ml Bag** 1 G/50 ML IVPB IV ONE (18:24)
[2017-02-20 18:35] LABS: Total Cells Counted 100
[2017-02-20 18:36] LABS: Platelet Estimate NORMAL (NORMAL)
[2017-02-20] MEDS ORDERED: TYLENOL 325 MG PO PRN (19:42)
[2017-02-20] MEDS ORDERED: PROVENTIL 2.5 MG/3 ML NEB IH PRN (19:42)
[2017-02-20] MEDS ORDERED: ULTRAM 50 MG PO PRN (23:09)
[2017-02-20] MEDS ORDERED: NON-FORMULARY ITEM PO SCH (23:10)
[2017-02-20] MEDS: D5W/0.45NS W/ 20mEq KCl 1000 ML 1,000 ML IV SCH (23:11)
[2017-02-20] MEDS: Requip 0.5 MG PO SCH (23:22)
[2017-02-20] MEDS: Ativan 1 MG PO SCH (23:22)
[2017-02-21] MEDS ORDERED: Nitrostat 0.4 MG Tablet SL PRN (05:40)
[2017-02-21] MEDS ORDERED: MORPHINE SULFATE 2 MG INJ IV ONE (05:40)
[2017-02-21] MEDS ORDERED: BABY ASPIRIN 81 MG CHEW PO ONE (05:41)
[2017-02-21] MEDS ORDERED: ECOTRIN 81 MG PO ONE (05:44)
[2017-02-21 05:46] LABS: BASOPHIL % 0.2 % (0.0-0.4); Eosinophil % 0.5 % (0.00-5.0); Granulocytes % 85.4 % (36.0-66.0); Lymphocytes % 4.6 % (24.0-44.0); Mean Cell Volume 89.5 fl (78-100); Mean Platelet Volume 9.1 fl (6-9.5); Monocytes % 9.3 % (0.0-12.0); Platelet Count 214 K/mm3 (150-450); Red Blood Count 3.99 M/mm3 (4.1-5.4); Red Cell Distribution Width 19.9 % (11.5-14.0); White Blood Count 14.1 K/mm3 (4.0-10.5)
[2017-02-21 05:51] LABS: Mean Corpuscular Hemoglobin 28.5 pg (26-32)
[2017-02-21 06:18] LABS: ALBUMIN 2.7 g/dL (3.4-5.0); ANION GAP 10.9 MEQ/L (5-15); BILIRUBIN,TOTAL 0.6 mg/dL (0.2-1.0); Carbon Dioxide 29.9 mEq/L (21-32); Total Protein 5.7 gm/dL (6.4-8.2)
[2017-02-21 06:36] LABS: Potassium 2.6 mEq/L (3.5-5.1)
[2017-02-21] MEDS ORDERED: POTASSIUM CHLORIDE 20 mEq IN WATER 100ML 20 MEQ/100 ML BAG IV SCH (07:15)
[2017-02-21] MEDS ORDERED: Potassium Chloride 40 MEQ/20 ML VIAL 40 MEQ, XYLOCAINE 1% HCL 20 ML MDV*** 2 ML in Sodi... IV ONE (08:00)
[2017-02-21] MEDS ORDERED: DULCOLAX 5 MG PO PRN (08:10)
[2017-02-21] MEDS: VANCOMYCIN 25MG/ML COMPOUND KIT PO SCH ×5 (09:30→22:37)
[2017-02-21] MEDS ORDERED: SYNTHROID 100 MCG PO SCH (10:00)
[2017-02-21] MEDS ORDERED: VITAMIN D3 PO SCH (10:00)
[2017-02-21] MEDS ORDERED: [UNRECOGNIZED DRUG - OTHER] PO SCH (10:00)
[2017-02-21] MEDS ORDERED: NON-FORMULARY ITEM (Multivitamin [Multivitamins] 1 EACH) PO SCH (10:00)
[2017-02-21] MEDS ORDERED: Klor Con 10 MEQ PO SCH (10:00)
[2017-02-21] MEDS ORDERED: CALCIUM CARBONATE PO SCH (10:00)
[2017-02-21] MEDS ORDERED: DEMADEX 20 MG PO SCH (10:00)
[2017-02-21] MEDS ORDERED: TORSEMIDE 100 MG PO SCH (10:00)
[2017-02-21] MEDS ORDERED: TENORMIN 50 MG PO SCH (10:00)
[2017-02-21] MEDS ORDERED: THERAGRAN MULTIVITAMIN PO SCH (10:00)
[2017-02-21] MEDS ORDERED: Vasotec 10 MG PO SCH (10:00)
[2017-02-21] MEDS ORDERED: NON-FORMULARY ITEM (Potassium Chloride 20 Meq [Klor-Con 20 Meq] 20 MEQ) PO SCH (10:00)
[2017-02-21] MEDS ORDERED: NON-FORMULARY ITEM PO SCH (10:00)
[2017-02-21] MEDS ORDERED: Cordarone 200 MG PO SCH (10:00)
--- NOTE | 2017-02-21 10:15 | PCM.HP ---
History of Present Illness - Chief Complaint Chief Complaint: uti Date: 02/21/17 History of Present Illness: is a 86 year old female. who was having some dysuria last week but had just gotten over C. diff and was doing well she did receive 3 days of metolazone for increased swelling over last weekend but was doing well before having sudden worsened confusion yesterday and concern by ECF she may have had a stroke. She was sent to the ED for evaluation and found to be febrile with UTI. Prior to leaving the ECF she did have 2 loose stools and continued after arrival to the floor which have tested positive for C. diff. She is feeling better this am but is hungry. Medications & Allergies Home Medications: Home Medication List Calcium Carbonate/Vitamin D3 [Calcium 600-Vit D3 400 Tablet] 1 each PO BID 08/22 [History Confirmed 02/20/17] Levothyroxine Sodium 100 Mcg [Synthroid 100 Mcg] 100 mcg PO DAILY 08/23/15 [History Confirmed 02/20/17] Acetaminophen 325 mg [Tylenol 325 mg] 650 mg PO Q4H PRN PRN #0 tablet [Rx Confirmed 02/20/17] Atenolol 50 mg [Tenormin 50 mg] 50 mg PO DAILY #0 tablet 03/16/16 [Rx Confirmed 02/20/17] Enalapril Maleate 10 mg [Vasotec 10 MG] 10 mg PO DAILY #0 tablet 03/16/16 [Rx Confirmed 02/20/17] Amiodarone HCl 200 mg [Cordarone 200 MG] 200 mg PO DAILY 09/02/16 [ History Confirmed 02/20/17] Tapentadol HCl [Nucynta ER] 200 mg PO BID 09/02/16 [History Confirmed 02/20/17] Potassium Chloride 20 Meq [Klor-Con 20 MEQ] 20 meq PO DAILY 09/26/16 [History Confirmed 02/20/17] Torsemide 100 mg PO DAILY 09/26/16 [History Confirmed 02/20/17] Bisacodyl 5 mg [Dulcolax 5 mg] 5 mg PO DAILY PRN PRN #30 tablet.ec [Rx Confirmed 02/20/17] Tramadol HCl 50 mg [Ultram 50 mg] 50 mg PO QID PRN PRN #120 tablet [Rx Confirmed 02/20/17] Lorazepam 1 mg [Ativan 1 MG] 1 mg PO BID 01/18/17 [History Confirmed 02/20] Multivitamin [Multivitamins] 1 each PO DAILY 01/18/17 [History Confirmed ] Ropinirole HCl 0.5 mg [Requip 0.5 MG] 0.5 mg PO HS #30 tablet 01/23/17 [ Rx Confirmed 02/20/17] Allergies/Adverse Reactions: Allergies Allergy/AdvReac Type Severity Reaction Status Date / Time meperidine HCl [From Demerol] Allergy Mild Headache Verified 02/20/17 17:08 - Past Medical History Past Medical History: Yes Neurological History: No Pertinent History ENT History: Cataracts Cardiac History: Arrhythmia, Hypertension Respiratory History: No Pertinent History Endocrine Medical History: Hypothyroidism Musculoskelatal History: Fractures, Osteoporosis GI Medical History: Hemorrhoids, Irritable Bowel History: No Pertinent History Pyscho-Social History: Anxiety Reproductive Disorders: Breast Cancer Comment: broken neck, broken pelvis - Female History Are you now?: No - Past Surgical History Past Surgical History: Yes Neuro Surgical History: No Pertinent History Cardiac History: No Pertinent History Respiratory Surgery: No Pertinent History GI Surgical History: No Pertinent History Genitourinary Surgical Hx: No Pertinent History Musculskeletal Surgical Hx: Orthopedic Surgery 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 Other Surgical History: back surgery- 5 yrsago; cataract surgery both eyes - Social History Smoking Status: Never smoker Exposure to second hand smoke: Yes Alcohol: None Drug Use: none - Physical Exam Vital Signs: Vital Signs - 24 hr Temp Pulse Resp BP BP Pulse Ox 02/21/17 06:54 98.4 F 89 16 95/58 95 02/21/17 05:57 97 H 76/47 02/21/17 04:00 99.4 F 100 H 16 126/66 95 02/21/17 00:00 98.1 F 81 15 92/50 92 L 02/20/17 22:22 84 18 96 02/20/17 21:05 91 L 02/20/17 19:44 99.1 F 89 14 93/55 92 L 02/20/17 19:10 97.8 F 83 18 130/73 97 02/20/17 18:52 89 20 130/73 02/20/17 18:20 84 18 123/67 100 02/20/17 17:43 80 16 111/66 100 02/20/17 17:27 85 20 96 02/20/17 16:39 100.2 F 85 20 115/56 95 Oxygen-Last 24 hours O2 Percentage 2 Liters = 28% O2 Percentage 2 Liters = 28% O2 Percentage 2 Liters = 28% O2 Percentage 2 Liters = 28% O2 Percentage 2 Liters = 28% O2 Percentage 2 Liters = 28% General Appearance: no apparent distress, alert Neurologic Exam: alert, oriented x 3, cooperative, normal mood/affect, sensation nml, No motor deficits Eye Exam: PERRL/EOMI, eyes nml inspection Ears, Nose, Throat Exam: normal ENT inspection, TMs normal, pharynx normal, moist mucous membranes Neck Exam: normal inspection, non-tender, supple, full range of motion Respiratory Exam: normal breath sounds, lungs clear, No respiratory distress Cardiovascular Exam: regular rate/rhythm, normal heart sounds, normal peripheral pulses Gastrointestinal/Abdomen Exam: soft, normal bowel sounds, No tenderness, No mass Back Exam: normal inspection, normal range of motion, No CVA tenderness, No vertebral tenderness Extremity Exam: normal inspection, normal range of motion, pelvis stable Skin Exam: normal color, warm, dry, No rash Lymphatic Exam: No adenopathy Results - Labs Lab/Micro Results: Lab Results-Last 24 Hours 02/20/17 02/20/17 02/21/17 Range/Units 20:00 20:52 00:26 WBC (4.0-10.5) K/mm3 RBC (4.1-5.4) M/mm3 Hgb (12.0-16.0) gm/dl Hct (35-47) % MCV (78-100) fl MCH (26-32) pg MCHC (32-36) g/dl RDW (11.5-14.0) % Plt Count (150-450) K/mm3 MPV (6-9.5) fl Gran % (36.0-66.0) % Lymphocytes % (24.0-44.0) % Monocytes % (0.0-12.0) % Eosinophils % (0.00-5.0) % Basophils % (0.0-0.4) % Basophils # (0-0.4) Sodium (136-145) mEq/L Potassium (3.5-5.1) mEq/L Chloride (98-107) mEq/L Carbon Dioxide (21-32) mEq/L Anion Gap (5-15) MEQ/L BUN (9-20) mg/dL Creatinine (0.55-1.30) mg/dl Estimated GFR ML/MIN Glucose (70-110) MG/DL Lactic Acid 1.0 (0.4-2.0) Calcium (8.5-10.1) mg/dL Total Bilirubin (0.2-1.0) mg/dL AST (15-37) U/L ALT (12-78) U/L Alkaline Phosphatase (46-116) U/L Troponin I < 0.017 (0.000-0.056) ng/ml Serum Total Protein (6.4-8.2) gm/dL Albumin (3.4-5.0) g/dL Stl C. diff Tox B Gene POSITIVE (NEGATIVE) C.difficile 027-NAP1-B1 POSITIVE (NEGATIVE) 02/21/17 02/21/17 02/21/17 Range/Units 05:39 05:39 05:39 WBC 14.1 H (4.0-10.5) K/mm3 RBC 3.99 L (4.1-5.4) M/mm3 Hgb 11.4 L (12.0-16.0) gm/dl Hct 35.7 (35-47) % MCV 89.5 (78-100) fl MCH 28.5 (26-32) pg MCHC 31.9 L (32-36) g/dl RDW 19.9 H (11.5-14.0) % Plt Count 214 (150-450) K/mm3 MPV 9.1 (6-9.5) fl Gran % 85.4 H (36.0-66.0) % Lymphocytes % 4.6 L (24.0-44.0) % Monocytes % 9.3 (0.0-12.0) % Eosinophils % 0.5 (0.00-5.0) % Basophils % 0.2 (0.0-0.4) % Basophils # 0.03 (0-0.4) Sodium 132 L (136-145) mEq/L Potassium 2.6 L* (3.5-5.1) mEq/L Chloride 94 L (98-107) mEq/L Carbon Dioxide 29.9 (21-32) mEq/L Anion Gap 10.9 (5-15) MEQ/L BUN 40 H (9-20) mg/dL Creatinine 1.84 H (0.55-1.30) mg/dl Estimated GFR 28 ML/MIN Glucose 124 H (70-110) MG/DL Lactic Acid (0.4-2.0) Calcium 8.1 L (8.5-10.1) mg/dL Total Bilirubin 0.60 (0.2-1.0) mg/dL AST 18 (15-37) U/L ALT 20 (12-78) U/L Alkaline Phosphatase 89 (46-116) U/L Troponin I < 0.017 (0.000-0.056) ng/ml Serum Total Protein 5.7 L (6.4-8.2) gm/dL Albumin 2.7 L (3.4-5.0) g/dL Stl C. diff Tox B Gene (NEGATIVE) C.difficile 027-NAP1-B1 (NEGATIVE) - Other Procedures and Tests Respiratory Therapy 02/20/17 22:22 Respiratory Nebulizer UD Assessment/Plan (1) UTI (urinary tract infection) Current Visit: Yes Status: Acute Qualifiers: Urinary tract infection type: site unspecified Assessment & Plan: given Rocephin in ed last night afebrile now will continue Rocephin pending culture i believe this is likely the cause of her acute febrile illness given her prodrom illness of dysuria and frequency that progressed to the fever and confusion. She was not treated initially outpatient with antibiotics due to her recent c. diff infection and is now having loose stools positive for c. diff thus will treat the uti but also the c. diff with po vanc 125 mg q6h Code(s): N39.0 - URINARY TRACT INFECTION, SITE NOT SPECIFIED (2) C. difficile colitis Current Visit: Yes Status: Acute (3) Hypokalemia Current Visit: Yes Status: Acute Assessment & Plan: severe hold the torsemide replacing k po and iv Code(s): E87.6 - HYPOKALEMIA (4) Chronic atrial fibrillation Current Visit: Yes Status: Chronic Code(s): I48.2 - CHRONIC ATRIAL FIBRILLATION (5) 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 Current Visit: Yes Status: Chronic Code(s): I11.0 - HYPERTENSIVE HEART DISEASE WITH HEART FAILURE; I50.30 - UNSPECIFIED DIASTOLIC (CONGESTIVE) HEART FAILURE (6) Acute on chronic renal failure Current Visit: Yes Status: Acute Assessment & Plan: secondary to the diuresis for her chronic diastolic heart failure as well as the diarrhea improved with the fluids overnight hold the torsemide hold the fluids monitor function in am Code(s): N17.9 - ACUTE KIDNEY FAILURE, UNSPECIFIED; N18.9 - CHRONIC KIDNEY DISEASE, UNSPECIFIED
[2017-02-21] MEDS: Ativan 1 MG PO SCH ×3 (12:11→22:21)
[2017-02-21] MEDS: Calcium 500MG W/Vit D Tablet PO SCH ×2 (12:11→22:21)
[2017-02-21] MEDS: PATIENT OWN MEDICATION PO SCH ×2 (12:12→22:21)
[2017-02-21] MEDS: Klor Con 10 MEQ PO SCH ×2 (14:22→22:20)
[2017-02-21] MEDS ORDERED: Sodium Chloride 0.9% 10 ML FLUSH Syringe IV PRN (17:00)
[2017-02-21 17:07] LABS: ANION GAP 11.7 MEQ/L (5-15); Carbon Dioxide 28.6 mEq/L (21-32); Potassium 3.5 mEq/L (3.5-5.1)
[2017-02-21] MEDS ORDERED: ROCEPHIN 1 Gm-D5w 50 ml Bag** 1 G/50 ML IVPB IV SCH (18:00)
[2017-02-21] MEDS: D5W/0.45NS W/ 20mEq KCl 1000 ML 1,000 ML IV SCH (21:17)
[2017-02-21] MEDS ORDERED: Sodium Chloride 0.9% 10 ML FLUSH Syringe IV SCH (22:00)
[2017-02-21] MEDS ORDERED: Lopressor 50 MG PO SCH ×2 (22:00)
[2017-02-21] MEDS: Requip 0.5 MG PO SCH (22:21)
[2017-02-22 05:57] LABS: Mean Cell Volume 91.4 fl (78-100); Mean Corpuscular Hemoglobin 28.1 pg (26-32); Mean Platelet Volume 9.3 fl (6-9.5); Platelet Count 215 K/mm3 (150-450); Red Blood Count 3.95 M/mm3 (4.1-5.4); Red Cell Distribution Width 20.3 % (11.5-14.0); White Blood Count 8.9 K/mm3 (4.0-10.5)
[2017-02-22 06:37] LABS: ANION GAP 9.8 MEQ/L (5-15); Carbon Dioxide 28.6 mEq/L (21-32); MAGNESIUM 1.9 mg/dL (1.8-2.4); Potassium 3.6 mEq/L (3.5-5.1)
[2017-02-22 07:38] VITALS: BP 121/71; PULSE 85; O2SAT 100
--- NOTE | 2017-02-22 08:06 | PCM.DCORD ---
- Discharge Discharge Date: 02/22/17 Disposition: Home, Self-Care Condition: Stable Prescriptions: New Saccharomyces Boulardii [Florastor] 250 mg PO BID #60 packet Cephalexin Monohydrate [Keflex] 500 mg PO BID 5 Days #10 capsule Tapentadol HCl [Nucynta ER] 200 mg PO BID #60 tab.er.12h MDD 2 Torsemide 100 mg PO DAILY #30 tablet Acetaminophen 325 mg [Tylenol 325 mg] 650 mg PO Q4H PRN PRN tablet PRN Reason: Pain And/Or Fever Vancomycin HCl [Vancomycin 25Mg/ml Compound Kit] 125 mg PO QID 10 Days bottle Continue Levothyroxine Sodium 100 Mcg [Synthroid 100 Mcg] 100 mcg PO DAILY Calcium Carbonate/Vitamin D3 [Calcium 600-Vit D3 400 Tablet] 1 each PO BID Amiodarone HCl 200 mg [Cordarone 200 MG] 200 mg PO DAILY Potassium Chloride 20 Meq [Klor-Con 20 MEQ] 20 meq PO DAILY Ropinirole HCl 0.5 mg [Requip 0.5 MG] 0.5 mg PO HS #30 tablet Metoprolol Tartrate 50 mg [Lopressor 50 MG] 50 mg PO BID Lorazepam 1 mg [Ativan 1 MG] 1 mg PO BID #60 tablet Tramadol HCl 50 mg [Ultram 50 mg] 50 mg PO QID PRN PRN #120 tablet PRN Reason: Pain Lisinopril 20 mg [Zestril 20 MG] 20 mg PO DAILY #30 Discontinued Tapentadol HCl [Nucynta ER] 200 mg PO BID Multivitamin [Multivitamins] 1 each PO DAILY Additional Instructions: she is to continue her nucynta as previously ordered prior to admission. THe computer put it in both spots. She is to continue it as previously ordered. Follow up with: DAJA CAMACHO [LOCATION] -
[2017-02-22] MEDS ORDERED: Lopressor 25MG Tab PO SCH (10:00)
--- NOTE | 2017-02-25 21:26 | PCM.DS ---
Discharge Summary Date of Admission: 02/20/17 19:35 Date of Discharge: 02/22/17 Admitting Physician: KELSI AGUILAR Primary Care Provider: KELSI AGUILAR Allergies Allergies meperidine HCl [From Demerol] Allergy (Mild, Verified 02/20/17 17:08) Headache Hospital Summary - Hospital Course Hospital Course: she was having confusion at the residential out of the ordinary and concern possibly a stroke she had been having dysuria for a few days prior this and was the week prior diuresed with 3 days of metolazone 2.5 mg daily with good results. She had just recovered from c. diff so was not treated initially for UTI. She presented to ED was found confused, hypokalemia and febrile from UTI. She was hydrated given K and placed on floor with Rocephin. SHe had worsening of her diarrhea that tested postive for C. diff and thus was started on po vanc as well and her K supplements were increased with her worsening hypokalemia. She tolerated this well was much more alert after the gentle rehydration. She also had acute kidney injury with the volume depletion and infection and this improved as well with holding her sukumar inhibitor and her lood diuretic. She improved very well and requested to go back to [facility]. Her stools were already more formed and her dysuria was improving and she was afebrile. She will hold her torsemide and sukumar inhibitor and resume next week. will use keflex for the E. coli UTI to complete a 7 day coarse for the recurrent C. diff will complete a 2 week coarse of po vancomycin also will add probiotic. - Vitals & Intake/Output Vital Signs: Vital Signs Temperature 97.5 F 02/22/17 07:37 Pulse Rate 85 02/22/17 07:37 Respiratory Rate 20 02/22/17 07:37 Blood Pressure 121/71 02/22/17 07:37 O2 Sat by Pulse Oximetry 100 02/22/17 07:37 Oxygen-Last Documented O2 Percentage 2 Liters = 28% - Lab Result Diagrams: 02/22/17 05:25 02/22/17 05:25 - Procedures and Test Procedures and Tests throughout Hospitalization: Therapy Orders & Screens 02/20/17 20:32 PT Screen per Nursing Assess ONCE Comment: Protocol Order Physician Instructions: Greater than 3 points order PT Admission Screenin Reason For Exam: Triggered on Admission Diagnosis: confusion, low potassium Open Wound/Cellutlitis/Pressure Ulcers: Yes Acute Fx/ORIF/Change in wt bearing status: No Severe MUSCULOSKELETAL pain: Yes ADL Dysfunction: Yes Acute CVA w/Hemiparesis/Hemiplegia: No Decreased Functional Mobility/Strength: Yes Sprain/Strain: No Acute Post-op Mobility Dysfunction: No Total Points: 14 ST Screen per Nursing Assess once Comment: Protocol Order Physician Instructions: Greater than [address] Admission Screening Reason For Exam: Triggered on Admission Diagnosis: confusion, low potassium CVA/Dyshpagia/Aphasia: No Cognitive Deficits: Yes Dehydration/Nutrition Deficit: No Reflux: No Oral-Motor Difficulties: No Pneumonia: No Shelter Resident: Yes Total Points: 8 02/20/17 22:22 Respiratory Nebulizer UD Comment: DUONEB Q4PRN Diagnosis: confusion, low potassium 02/21/17 05:35 EKG STAT Comment: c/o chest pain Diagnosis: confusion, low potassium Discharge Exam General Appearance: no apparent distress, alert Neurologic Exam: alert, oriented x 3, cooperative, normal mood/affect, nml cerebellar function, sensation nml, No motor deficits Skin Exam: normal color, warm, dry Eye Exam: PERRL, EOMI, eyes nml inspection Ears, Nose, Throat Exam: normal ENT inspection, pharynx normal, moist mucous membranes Neck Exam: normal inspection, non-tender, supple, full range of motion Respiratory Exam: normal breath sounds, lungs clear, No respiratory distress Cardiovascular Exam: regular rate/rhythm, normal heart sounds Gastrointestinal/Abdomen Exam: soft, No tenderness, No mass Extremity Exam: normal inspection, normal range of motion Back Exam: normal inspection, normal range of motion, No CVA tenderness, No vertebral tenderness Pelvic Exam: deferred Rectal Exam: deferred Final Diagnosis/Problem List - Final Discharge Diagnosis/Problem (1) UTI (urinary tract infection) Status: Acute (2) C. 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 Status: Chronic (6) Acute on chronic renal failure Status: Acute - Discharge Disposition: Skilled Care @ [facility] Condition: Stable Prescriptions: New Saccharomyces Boulardii [Florastor] 250 mg PO BID #60 packet Cephalexin Monohydrate [Keflex] 500 mg PO BID 5 Days #10 capsule Tapentadol HCl [Nucynta ER] 200 mg PO BID #60 tab.er.12h MDD 2 Torsemide 100 mg PO DAILY #30 tablet Acetaminophen 325 mg [Tylenol 325 mg] 650 mg PO Q4H PRN PRN tablet PRN Reason: Pain And/Or Fever Vancomycin HCl [Vancomycin 25Mg/ml Compound Kit] 125 mg PO QID 10 Days bottle Continue Levothyroxine Sodium 100 Mcg [Synthroid 100 Mcg] 100 mcg PO DAILY Calcium Carbonate/Vitamin D3 [Calcium 600-Vit D3 400 Tablet] 1 each PO BID Amiodarone HCl 200 mg [Cordarone 200 MG] 200 mg PO DAILY Potassium Chloride 20 Meq [Klor-Con 20 MEQ] 20 meq PO DAILY Ropinirole HCl 0.5 mg [Requip 0.5 MG] 0.5 mg PO HS #30 tablet Metoprolol Tartrate 50 mg [Lopressor 50 MG] 50 mg PO BID Lorazepam 1 mg [Ativan 1 MG] 1 mg PO BID #60 tablet Tramadol HCl 50 mg [Ultram 50 mg] 50 mg PO QID PRN PRN #120 tablet PRN Reason: Pain Lisinopril 20 mg [Zestril 20 MG] 20 mg PO DAILY #30 Discontinued Tapentadol HCl [Nucynta ER] 200 mg PO BID Multivitamin [Multivitamins] 1 each PO DAILY Instructions: Urinary Tract Infection (UTI) Additional Instructions: she is to continue her nucynta as previously ordered prior to admission. THe computer put it in both spots. She is to continue it as previously ordered. Follow up with: DAJA CAMACHO [LOCATION] -
== END 2017-02-22 09:45 | disposition home or self-care (01) ==
LOC: ED 16:30 → MED SURG 19:35
PROVIDERS: ADMIT Family Medicine; ATTEND Family Medicine
DX: N39.0 Urinary tract infection, site not specified (principal); A04.72 Enterocolitis due to Clostridium difficile, not specified as recurrent; E87.6 Hypokalemia; I48.2 Chronic atrial fibrillation; I13.0 Hypertensive heart and chronic kidney disease with heart failure and stage 1 through stage 4 chronic kidney disease, or unspecified chronic kidney disease; N18.9 Chronic kidney disease, unspecified; I50.32 Chronic diastolic (congestive) heart failure; I50.84 End stage heart failure; N17.9 Acute kidney failure, unspecified; F41.9 Anxiety disorder, unspecified; E03.9 Hypothyroidism, unspecified; M81.0 Age-related osteoporosis without current pathological fracture; Z79.899 Other long term (current) drug therapy; Z85.3 Personal history of malignant neoplasm of breast
CPT/HCPCS: 93268; 93041; 99285; 36000; 93005 ×2; 87040; 81000; 36415 ×3; 87186; 83735 ×2; 87493 ×2; 85027; 85025 ×2; 87077; 80048 ×2; 80053 ×2; 84484 ×2; 87086; 71010; 70450; 94640; 94760 ×2; 83605; P9612; G0378; J0696; J2270; J3480; A9270-GY

== ENCOUNTER 2017-04-06 09:59 | Inpatient (IN) | payer MEDICARE, MEDICAID ==
[2017-04-06 10:39] LABS: Lactic Acid 2.1 (0.4-2.0)
[2017-04-06] MEDS ORDERED: Sodium Chloride 0.9% 1000 ML 1,000 ML (10:44)
[2017-04-06 10:48] LABS: ADD URINE CULTURE? YES (NO); Appearance HAZY (CLEAR); Bilirubin NEGATIVE (NEGATIVE); Blood NEGATIVE Ery/ul (0-5); COMPLETE URINE MICROSCOPIC? YES; Collection Type CATH; Glucose NEGATIVE (NEGATIVE); Ketones NEGATIVE (NEGATIVE); Leukocyte Esterase 1+ (NEGATIVE); Nitrite POSITIVE (NEGATIVE); Protein,Urine Dip TRACE (Negative); Urobilinogen NORMAL mg/dL (0-1)
[2017-04-06] MEDS: Sodium Chloride 0.9% 1000 ML 1,000 ML IV (10:48)
[2017-04-06 10:55] LABS: Granulocyte Absolute (ANC) 8.78 (1.4-6.9); Hematocrit 43.6 % (35-47); Hemoglobin 14.2 gm/dl (12.0-16.0); Mean Cell Volume 88.6 fl (78-100); Mean Corpuscular Hemoglobin 28.9 pg (26-32); Mean Corpuscular Hgb Concent. 32.6 g/dl (32-36); Mean Platelet Volume 9.7 fl (6-9.5); Platelet Count 249 K/mm3 (150-450); Red Blood Count 4.92 M/mm3 (4.1-5.4); Red Cell Distribution Width 17.8 % (11.5-14.0); White Blood Count 9.9 K/mm3 (4.0-10.5)
[2017-04-06 10:59] LABS: ADD MANUAL DIFF? YES (NO)
[2017-04-06 11:00] LABS: MAGNESIUM 1.9 mg/dL (1.8-2.4)
[2017-04-06 11:04] LABS: ALBUMIN 3.2 g/dL (3.4-5.0); ALKALINE PHOSPHATASE 107 U/L (46-116); BLOOD UREA NITROGEN 44 mg/dL (9-20); CHLORIDE 92 mEq/L (98-107); Calcium 8.9 mg/dL (8.5-10.1); Carbon Dioxide 29.9 mEq/L (21-32); Creatinine 1 2.78 mg/dl (0.55-1.30); EST GLOMERULAR FILTRATION RATE 17 ML/MIN; Glucose 121 MG/DL (70-110); Potassium 3.1 mEq/L (3.5-5.1); SGOT/AST 85 U/L (15-37); SGPT/ALT 50 U/L (12-78); SODIUM 131 mEq/L (136-145); Total Protein 6.7 gm/dL (6.4-8.2)
[2017-04-06 11:21] LABS: WBC 15-25 /HPF (0-5)
[2017-04-06 11:22] LABS: Bacteria PACKED /HPF (NEGATIVE); Epithelial Cells RARE /HPF (FEW)
[2017-04-06] MEDS ORDERED: SUBLIMAZE 100 MCG/2 ML (11:44)
[2017-04-06] MEDS: SUBLIMAZE 100 MCG/2 ML IV (11:48)
[2017-04-06] MEDS ORDERED: POTASSIUM CHLORIDE 20 MEQ POWDER FOR ORAL SOL (11:49)
[2017-04-06 11:56] LABS: Lymphocytes 2 % (24-44); Monocyte 4 % (0.0-12.0); Neutrophils 94 % (36.0-66.0); Platelet Estimate NORMAL (NORMAL); Total Cells Counted 100
[2017-04-06] MEDS: POTASSIUM CHL 40 MEQ/30 ML ORAL SOLUTION PO (12:23)
[2017-04-06] MEDS ORDERED: Klor Con 10 MEQ PO (12:28)
[2017-04-06] MEDS: Klor Con 10 MEQ PO (12:29)
[2017-04-06] MEDS ORDERED: Zofran 4 MG/2 ML VIAL IV (13:02)
[2017-04-06] MEDS ORDERED: MORPHINE SULFATE 2 MG INJ IV (13:02)
[2017-04-06 13:21] LABS: Lactic Acid 1.7 (0.4-2.0)
[2017-04-06] MEDS: ROCEPHIN 1 Gm-D5w 50 ml Bag** 1 G/50 ML IVPB IV (14:01)
[2017-04-06] MEDS: Sodium Chloride 0.9% W/ 20 mEq KCl/LITER 1,000 ML IV (14:05)
[2017-04-06] MEDS: VANCOMYCIN 25MG/ML COMPOUND KIT PO ×3 (14:09→22:40)
[2017-04-06] MEDS: FLAGYL 500 MG IVPB 500 MG/100 ML BAG IV (17:36)
[2017-04-06] MEDS: ULTRAM 50 MG PO (17:48)
[2017-04-06] MEDS ORDERED: Sodium Chloride 0.9% 500 ML 500 ML IV (18:11)
[2017-04-06] MEDS ORDERED: ENOXAPARIN SODIUM (18:23)
[2017-04-06] MEDS: Levofloxacin 500MG/100ML D5W 500 MG/100 ML BAG IV (18:24)
[2017-04-06] MEDS: ENOXAPARIN SODIUM SQ (18:24)
[2017-04-06] MEDS: PHARMACY DOSING REQUEST MC ×2 (18:24→18:25)
[2017-04-06] MEDS: Ativan 1 MG PO (21:46)
[2017-04-06] MEDS: Lopressor 50 MG PO (21:47)
[2017-04-06] MEDS: Requip 0.5 MG PO (21:47)
[2017-04-06] MEDS: PATIENT OWN MEDICATION PO (21:48)
[2017-04-07] MEDS: FLAGYL 500 MG IVPB 500 MG/100 ML BAG IV ×5 (01:04→23:35)
[2017-04-07] MEDS: Sodium Chloride 0.9% W/ 20 mEq KCl/LITER 1,000 ML IV ×2 (08:15→22:08)
[2017-04-07] MEDS: PATIENT OWN MEDICATION PO ×2 (09:00→22:11)
[2017-04-07] MEDS: VANCOMYCIN 25MG/ML COMPOUND KIT PO ×4 (09:01→22:14)
[2017-04-07] MEDS: Zestril 20 MG PO (09:01)
[2017-04-07] MEDS: Lopressor 50 MG PO ×2 (09:03→22:10)
[2017-04-07] MEDS: Klor Con 10 MEQ PO (09:03)
[2017-04-07] MEDS: Cordarone 200 MG PO (09:03)
[2017-04-07] MEDS: Ativan 1 MG PO ×2 (09:03→22:10)
[2017-04-07] MEDS: SYNTHROID 100 MCG PO (09:03)
[2017-04-07] MEDS ORDERED: TYLENOL 325 MG PO (09:07)
[2017-04-07] MEDS: Acidophilus TABLET PO ×2 (09:20→22:10)
[2017-04-07] MEDS ORDERED: NON-FORMULARY ITEM (Saccharomyces Boulardii [Florastor] 250 MG) PO (10:00)
[2017-04-07] MEDS ORDERED: ROCEPHIN 1 Gm-D5w 50 ml Bag** 1 G/50 ML IVPB IV (10:00)
[2017-04-07 14:13] LABS: ANION GAP 12.3 MEQ/L (5-15); BLOOD UREA NITROGEN 36 mg/dL (9-20); CHLORIDE 98 mEq/L (98-107); Calcium 7.8 mg/dL (8.5-10.1); Carbon Dioxide 26.3 mEq/L (21-32); Creatinine 1 2.09 mg/dl (0.55-1.30); EST GLOMERULAR FILTRATION RATE 24 ML/MIN; Glucose 131 MG/DL (70-110); Potassium 4.6 mEq/L (3.5-5.1); SODIUM 132 mEq/L (136-145)
[2017-04-07 14:21] LABS: Hemoglobin 12.4 gm/dl (12.0-16.0); Mean Cell Volume 92.2 fl (78-100); Mean Corpuscular Hemoglobin 28.6 pg (26-32); Platelet Count 255 K/mm3 (150-450); Red Blood Count 4.34 M/mm3 (4.1-5.4); Red Cell Distribution Width 18.1 % (11.5-14.0); White Blood Count 6.5 K/mm3 (4.0-10.5)
[2017-04-07] MEDS: ENOXAPARIN SODIUM SQ (18:06)
[2017-04-07] MEDS: Requip 0.5 MG PO (22:12)
[2017-04-08 06:20] LABS: Hematocrit 40.3 % (35-47); Hemoglobin 12.6 gm/dl (12.0-16.0); Mean Cell Volume 93.3 fl (78-100); Mean Corpuscular Hemoglobin 29.2 pg (26-32); Mean Corpuscular Hgb Concent. 31.3 g/dl (32-36); Mean Platelet Volume 9.7 fl (6-9.5); Platelet Count 223 K/mm3 (150-450); Red Blood Count 4.32 M/mm3 (4.1-5.4); Red Cell Distribution Width 18.1 % (11.5-14.0); White Blood Count 5.4 K/mm3 (4.0-10.5)
[2017-04-08] MEDS: FLAGYL 500 MG IVPB 500 MG/100 ML BAG IV (06:33)
[2017-04-08 06:52] LABS: ANION GAP 9.8 MEQ/L (5-15); BLOOD UREA NITROGEN 28 mg/dL (9-20); CHLORIDE 100 mEq/L (98-107); Calcium 7.7 mg/dL (8.5-10.1); Carbon Dioxide 27.8 mEq/L (21-32); Creatinine 1 1.67 mg/dl (0.55-1.30); EST GLOMERULAR FILTRATION RATE 31 ML/MIN; Glucose 94 MG/DL (70-110); Potassium 4.3 mEq/L (3.5-5.1); SODIUM 133 mEq/L (136-145)
[2017-04-08] MEDS: Ativan 1 MG PO (09:24)
[2017-04-08] MEDS: Zestril 20 MG PO (09:24)
[2017-04-08] MEDS: Klor Con 10 MEQ PO (09:24)
[2017-04-08] MEDS: SYNTHROID 100 MCG PO (09:25)
[2017-04-08] MEDS: VANCOMYCIN 25MG/ML COMPOUND KIT PO (09:25)
[2017-04-08] MEDS: Acidophilus TABLET PO (09:25)
[2017-04-08] MEDS: PATIENT OWN MEDICATION PO (09:25)
[2017-04-08] MEDS: Lopressor 50 MG PO (09:25)
[2017-04-08] MEDS: Cordarone 200 MG PO (09:25)
[2017-04-08] MEDS: Levaquin 250MG/50ML D5W 250 MG/50 ML BAG IV (09:29)
== END 2017-04-08 11:00 ==
LOC: ED 09:59 → MED SURG 13:01
PROVIDERS: Family Medicine
CPT/HCPCS: 36415; 71045; 74176; 80048; 80053; 81000; 83605; 83735; 85025; 85027; 87077; 87086; 87186; 96360; 96361; 96374; 99285; J0696; J1650; J1956; J3010; P9612

== ENCOUNTER 2017-04-13 13:17 | Inpatient (IN) | payer MEDICARE ==
[2017-04-13 14:32] LABS: ADD MANUAL DIFF? YES (NO); Appearance CLEAR (CLEAR); Bilirubin NEGATIVE (NEGATIVE); Blood 250 Ery/ul (0-5); COMPLETE URINE MICROSCOPIC? YES; Collection Type CATH; Glucose NEGATIVE (NEGATIVE); Granulocyte Absolute (ANC) 12.64 (1.4-6.9); Hematocrit 39.9 % (35-47); Hemoglobin 12.9 gm/dl (12.0-16.0); Ketones NEGATIVE (NEGATIVE); Leukocyte Esterase TRACE (NEGATIVE); Mean Cell Volume 89.9 fl (78-100); Mean Corpuscular Hemoglobin 29.1 pg (26-32); Mean Corpuscular Hgb Concent. 32.3 g/dl (32-36); Mean Platelet Volume 9.9 fl (6-9.5); Nitrite NEGATIVE (NEGATIVE); Platelet Count 197 K/mm3 (150-450); Protein,Urine Dip TRACE (Negative); Red Blood Count 4.44 M/mm3 (4.1-5.4); Red Cell Distribution Width 17.4 % (11.5-14.0); Urobilinogen NORMAL mg/dL (0-1)
[2017-04-13] MEDS ORDERED: Sodium Chloride 0.9% 1000 ML 1,000 ML (14:36)
[2017-04-13] MEDS: Sodium Chloride 0.9% 1000 ML 1,000 ML IV (14:36)
[2017-04-13 14:37] LABS: ADD URINE CULTURE? YES (NO); Bacteria FEW /HPF (NEGATIVE)
[2017-04-13 14:39] LABS: ALBUMIN 2.8 g/dL (3.4-5.0); ALKALINE PHOSPHATASE 118 U/L (46-116); AMYLASE 70 U/L (25-115); ANION GAP 13.2 MEQ/L (5-15); BLOOD UREA NITROGEN 21 mg/dL (9-20); CHLORIDE 94 mEq/L (98-107); Calcium 8.6 mg/dL (8.5-10.1); Carbon Dioxide 27.6 mEq/L (21-32); Creatinine 1 1.81 mg/dl (0.55-1.30); EST GLOMERULAR FILTRATION RATE 28 ML/MIN; Glucose 122 MG/DL (70-110); LIPASE 235 U/L (73-393); SGOT/AST 161 U/L (15-37); SGPT/ALT 43 U/L (12-78)
[2017-04-13] MEDS ORDERED: MORPHINE SULFATE 2 MG INJ (14:44)
[2017-04-13] MEDS: MORPHINE SULFATE 2 MG INJ IV ×3 (14:48→23:14)
[2017-04-13 14:55] LABS: SODIUM 132 mEq/L (136-145)
[2017-04-13 15:11] LABS: ANISOCYTOSIS 1+; Lymphocytes 6 % (24-44); Monocyte 4 % (0.0-12.0); Neutrophils 90 % (36.0-66.0); Platelet Estimate NORMAL (NORMAL); Total Cells Counted 100
[2017-04-13] MEDS ORDERED: Klor Con 10 MEQ PO (15:36)
[2017-04-13] MEDS: Klor Con 10 MEQ PO (15:36)
[2017-04-13] MEDS: Sodium Chloride 0.9% W/ 20 mEq KCl/LITER 1,000 ML IV (17:03)
[2017-04-13] MEDS: ULTRAM 50 MG PO (17:28)
[2017-04-13] MEDS: Calcium 500MG W/Vit D Tablet PO (21:02)
[2017-04-13] MEDS: Requip 0.5 MG PO (21:02)
[2017-04-13] MEDS: Ativan 1 MG PO (21:02)
[2017-04-13] MEDS: VANCOMYCIN 25MG/ML COMPOUND KIT PO (21:28)
[2017-04-13] MEDS: Lopressor 50 MG PO (21:37)
[2017-04-13] MEDS: PATIENT OWN MEDICATION PO ×2 (21:38)
[2017-04-14] MEDS: Sodium Chloride 0.9% W/ 20 mEq KCl/LITER 1,000 ML IV ×2 (03:11→23:03)
[2017-04-14] MEDS: ULTRAM 50 MG PO (03:18)
[2017-04-14 05:50] LABS: BASOPHIL % 0.1 % (0.0-0.4); Basophil (Absolute #) 0.01 (0-0.4); Eosinophil (Absolute #) 0 (0-0.5); Granulocyte Absolute (ANC) 12.38 (1.4-6.9); Granulocytes % 87.4 % (36.0-66.0); Hematocrit 40.4 % (35-47); Hemoglobin 12.9 gm/dl (12.0-16.0); Lymphocytes % 3.5 % (24.0-44.0); Mean Corpuscular Hemoglobin 29.1 pg (26-32); Mean Corpuscular Hgb Concent. 31.9 g/dl (32-36); Mean Platelet Volume 9.4 fl (6-9.5); Monocyte (Absolute #) 1.27 (0.0-1.3); Platelet Count 194 K/mm3 (150-450); Red Blood Count 4.44 M/mm3 (4.1-5.4); Red Cell Distribution Width 17.6 % (11.5-14.0); White Blood Count 14.2 K/mm3 (4.0-10.5)
[2017-04-14 06:17] LABS: ADD MANUAL DIFF? NO (NO)
[2017-04-14 06:32] LABS: ALBUMIN 2.7 g/dL (3.4-5.0); ALKALINE PHOSPHATASE 100 U/L (46-116); ANION GAP 12.4 MEQ/L (5-15); BLOOD UREA NITROGEN 21 mg/dL (9-20); CHLORIDE 100 mEq/L (98-107); Calcium 8.3 mg/dL (8.5-10.1); Carbon Dioxide 25.1 mEq/L (21-32); Creatinine 1 1.73 mg/dl (0.55-1.30); EST GLOMERULAR FILTRATION RATE 30 ML/MIN; Glucose 92 MG/DL (70-110); Potassium 3.9 mEq/L (3.5-5.1); SGOT/AST 142 U/L (15-37); SGPT/ALT 42 U/L (12-78); SODIUM 134 mEq/L (136-145); Total Protein 5.9 gm/dL (6.4-8.2)
[2017-04-14 07:31] LABS: Slide Review 1 YES
[2017-04-14] MEDS: MORPHINE SULFATE 2 MG INJ IV (08:32)
[2017-04-14] MEDS ORDERED: NON-FORMULARY ITEM (Potassium Chloride 20 Meq [Klor-Con 20 Meq] 20 MEQ) PO (10:00)
[2017-04-14] MEDS: PATIENT OWN MEDICATION PO ×2 (10:09→21:39)
[2017-04-14] MEDS: SYNTHROID 100 MCG PO (10:10)
[2017-04-14] MEDS: Calcium 500MG W/Vit D Tablet PO ×2 (10:10→21:39)
[2017-04-14] MEDS: Klor Con 10 MEQ PO (10:10)
[2017-04-14] MEDS: Acidophilus TABLET PO ×2 (10:10→21:39)
[2017-04-14] MEDS: Ativan 1 MG PO ×2 (10:10→21:39)
[2017-04-14] MEDS: Zestril 20 MG PO (11:21)
[2017-04-14] MEDS: Lopressor 50 MG PO ×2 (11:21→21:38)
[2017-04-14] MEDS: Cordarone 200 MG PO (11:22)
[2017-04-14] MEDS: VANCOMYCIN 25MG/ML COMPOUND KIT PO ×4 (11:22→23:10)
[2017-04-14] MEDS: QUESTRAN Light 4 GM Packet PO (11:22)
[2017-04-14] MEDS: Requip 0.5 MG PO (21:39)
[2017-04-15 05:50] LABS: BASOPHIL % 0.1 % (0.0-0.4); Basophil (Absolute #) 0.01 (0-0.4); Eosinophil % 0.1 % (0.00-5.0); Eosinophil (Absolute #) 0.01 (0-0.5); Granulocyte Absolute (ANC) 8.21 (1.4-6.9); Granulocytes % 81.5 % (36.0-66.0); Hematocrit 34.4 % (35-47); Hemoglobin 10.5 gm/dl (12.0-16.0); Lymphocyte (Absolute #) 0.66 (1.0-4.6); Lymphocytes % 6.5 % (24.0-44.0); Mean Corpuscular Hgb Concent. 30.5 g/dl (32-36); Mean Platelet Volume 10.4 fl (6-9.5); Monocyte (Absolute #) 1.19 (0.0-1.3); Monocytes % 11.8 % (0.0-12.0); Platelet Count 156 K/mm3 (150-450); Red Blood Count 3.66 M/mm3 (4.1-5.4); Red Cell Distribution Width 17.9 % (11.5-14.0); White Blood Count 10.1 K/mm3 (4.0-10.5)
[2017-04-15 06:00] LABS: ADD MANUAL DIFF? NO (NO); Mean Corpuscular Hemoglobin 28.6 pg (26-32)
[2017-04-15 06:03] LABS: ALBUMIN 2.3 g/dL (3.4-5.0); ALKALINE PHOSPHATASE 87 U/L (46-116); ANION GAP 9.7 MEQ/L (5-15); BLOOD UREA NITROGEN 25 mg/dL (9-20); CHLORIDE 105 mEq/L (98-107); Calcium 8.1 mg/dL (8.5-10.1); Carbon Dioxide 26.9 mEq/L (21-32); Creatinine 1 1.67 mg/dl (0.55-1.30); EST GLOMERULAR FILTRATION RATE 31 ML/MIN; Glucose 87 MG/DL (70-110); MAGNESIUM 1.6 mg/dL (1.8-2.4); Potassium 5.4 mEq/L (3.5-5.1); SGOT/AST 82 U/L (15-37); SGPT/ALT 35 U/L (12-78); SODIUM 136 mEq/L (136-145); Total Protein 5.2 gm/dL (6.4-8.2)
[2017-04-15] MEDS: Acidophilus TABLET PO ×2 (08:50→21:53)
[2017-04-15] MEDS: Ativan 1 MG PO ×2 (08:50→21:53)
[2017-04-15] MEDS: Calcium 500MG W/Vit D Tablet PO ×2 (08:50→21:53)
[2017-04-15] MEDS: Cordarone 200 MG PO (08:50)
[2017-04-15] MEDS: QUESTRAN Light 4 GM Packet PO (08:51)
[2017-04-15] MEDS: Lopressor 50 MG PO ×2 (08:51→21:53)
[2017-04-15] MEDS: PATIENT OWN MEDICATION PO ×2 (08:51→21:53)
[2017-04-15] MEDS: SYNTHROID 100 MCG PO (08:54)
[2017-04-15] MEDS: VANCOMYCIN 25MG/ML COMPOUND KIT PO ×4 (08:55→21:54)
[2017-04-15] MEDS: Sodium Chloride 0.9% 1000 ML 1,000 ML IV (09:01)
[2017-04-15] MEDS: ULTRAM 50 MG PO ×2 (09:04→21:54)
[2017-04-15 16:57] LABS: Collection Type CCMS
[2017-04-15 16:58] LABS: Amourphous Crystal FEW /HPF (NEGATIVE); Appearance CLEAR (CLEAR); Bilirubin NEGATIVE (NEGATIVE); Blood TRACE HEMOLYZED Ery/ul (0-5); COMPLETE URINE MICROSCOPIC? YES; Glucose NEGATIVE (NEGATIVE); Ketones NEGATIVE (NEGATIVE); Leukocyte Esterase NEGATIVE (NEGATIVE); Nitrite NEGATIVE (NEGATIVE); Protein,Urine Dip NEGATIVE (Negative); Specific Gravity 1.015 (1.005-1.025); Urobilinogen NORMAL mg/dL (0-1); WBC 0-2 /HPF (0-5)
[2017-04-15] MEDS: Requip 0.5 MG PO (21:54)
[2017-04-16] MEDS: Sodium Chloride 0.9% 1000 ML 1,000 ML IV (05:10)
[2017-04-16 06:23] LABS: ANION GAP 9.2 MEQ/L (5-15); BLOOD UREA NITROGEN 21 mg/dL (9-20); CHLORIDE 108 mEq/L (98-107); Calcium 8.3 mg/dL (8.5-10.1); Carbon Dioxide 24.6 mEq/L (21-32); Creatinine 1 1.33 mg/dl (0.55-1.30); EST GLOMERULAR FILTRATION RATE 40 ML/MIN; Glucose 77 MG/DL (70-110); Potassium 5.2 mEq/L (3.5-5.1); SODIUM 137 mEq/L (136-145)
[2017-04-16] MEDS: Ativan 1 MG PO ×2 (09:44→21:12)
[2017-04-16] MEDS: Cordarone 200 MG PO (09:44)
[2017-04-16] MEDS: Lopressor 50 MG PO ×2 (09:44→21:15)
[2017-04-16] MEDS: QUESTRAN Light 4 GM Packet PO (09:44)
[2017-04-16] MEDS: Acidophilus TABLET PO ×2 (09:45→21:12)
[2017-04-16] MEDS: SYNTHROID 100 MCG PO (09:45)
[2017-04-16] MEDS: Calcium 500MG W/Vit D Tablet PO ×2 (09:45→21:14)
[2017-04-16] MEDS: VANCOMYCIN 25MG/ML COMPOUND KIT PO ×4 (09:45→21:16)
[2017-04-16] MEDS: PATIENT OWN MEDICATION PO ×2 (09:46→21:15)
[2017-04-16] MEDS: MORPHINE SULFATE 2 MG INJ IV (20:36)
[2017-04-17] MEDS: MORPHINE SULFATE 2 MG INJ IV (03:22)
[2017-04-17] MEDS: DILAUDID 2 MG INJECTION IV ×3 (08:39→22:40)
[2017-04-17] MEDS: Dulcolax 10 MG SUPP PR (08:45)
[2017-04-17 09:13] LABS: BASOPHIL % 0.2 % (0.0-0.4); Basophil (Absolute #) 0.02 (0-0.4); Eosinophil % 0.5 % (0.00-5.0); Eosinophil (Absolute #) 0.05 (0-0.5); Granulocyte Absolute (ANC) 7.79 (1.4-6.9); Granulocytes % 83.9 % (36.0-66.0); Hematocrit 38.9 % (35-47); Hemoglobin 12.3 gm/dl (12.0-16.0); Lymphocytes % 6.5 % (24.0-44.0); Mean Cell Volume 92.6 fl (78-100); Mean Corpuscular Hemoglobin 29.3 pg (26-32); Mean Corpuscular Hgb Concent. 31.6 g/dl (32-36); Mean Platelet Volume 9.5 fl (6-9.5); Monocyte (Absolute #) 0.83 (0.0-1.3); Monocytes % 8.9 % (0.0-12.0); Platelet Count 150 K/mm3 (150-450); Red Cell Distribution Width 17.6 % (11.5-14.0); White Blood Count 9.3 K/mm3 (4.0-10.5)
[2017-04-17 09:16] LABS: ADD MANUAL DIFF? NO (NO)
[2017-04-17 09:36] LABS: ALBUMIN 2.5 g/dL (3.4-5.0); ALKALINE PHOSPHATASE 147 U/L (46-116); ANION GAP 10.3 MEQ/L (5-15); BLOOD UREA NITROGEN 17 mg/dL (9-20); CHLORIDE 105 mEq/L (98-107); Calcium 8.6 mg/dL (8.5-10.1); Carbon Dioxide 23.2 mEq/L (21-32); Creatinine 1 1.19 mg/dl (0.55-1.30); EST GLOMERULAR FILTRATION RATE 46 ML/MIN; Glucose 87 MG/DL (70-110); LIPASE 161 U/L (73-393); Potassium 4.6 mEq/L (3.5-5.1); SGOT/AST 45 U/L (15-37); SGPT/ALT 31 U/L (12-78); SODIUM 134 mEq/L (136-145); Total Protein 5.7 gm/dL (6.4-8.2)
[2017-04-17] MEDS: Acidophilus TABLET PO ×2 (10:42→21:33)
[2017-04-17] MEDS: Cordarone 200 MG PO (10:42)
[2017-04-17] MEDS: Calcium 500MG W/Vit D Tablet PO ×2 (10:42→21:33)
[2017-04-17] MEDS: Lopressor 50 MG PO ×2 (10:42→21:33)
[2017-04-17] MEDS: SYNTHROID 100 MCG PO (10:42)
[2017-04-17] MEDS: Ativan 1 MG PO (10:42)
[2017-04-17] MEDS: VANCOMYCIN 25MG/ML COMPOUND KIT PO ×4 (10:43→21:34)
[2017-04-17] MEDS: PATIENT OWN MEDICATION PO ×2 (10:43→21:33)
[2017-04-18 06:58] LABS: Source C Diff Feces
[2017-04-18 06:58] LABS: C Diff GDH Ag Negative (Negative)
[2017-04-18] MEDS: DILAUDID 2 MG INJECTION IV ×4 (08:53→20:08)
[2017-04-18] MEDS: CITROMA 296 ML PO (10:14)
[2017-04-18] MEDS: PATIENT OWN MEDICATION PO ×2 (10:16→23:26)
[2017-04-18] MEDS: VANCOMYCIN 25MG/ML COMPOUND KIT PO ×4 (10:16→23:22)
[2017-04-18] MEDS: Acidophilus TABLET PO (10:16)
[2017-04-18] MEDS: Lopressor 50 MG PO ×2 (10:16→23:21)
[2017-04-18] MEDS: SYNTHROID 100 MCG PO (10:16)
[2017-04-18] MEDS: Cordarone 200 MG PO (10:16)
[2017-04-18] MEDS: Calcium 500MG W/Vit D Tablet PO (10:16)
[2017-04-18] MEDS: Dulcolax 10 MG SUPP PR (12:29)
[2017-04-18 18:02] LABS: Lactic Acid 1.4 (0.4-2.0); VBG CARBOXYHEMOGLOBIN 3.6 % T HGB (0.0-6.9); VBG HCO3- 23.1 meq/L (22-28); VBG HEMOGLOBIN 13.6; VBG O2 SATURATION 87.4 (95-100); VBG PCO2 40 mm/Hg (42-55); VBG PO2 45 mm/Hg (25-40); VBG pH 7.37 (7.32-7.42)
[2017-04-18 18:11] LABS: BASOPHIL % 0.3 % (0.0-0.4); Basophil (Absolute #) 0.03 (0-0.4); Eosinophil % 0.5 % (0.00-5.0); Eosinophil (Absolute #) 0.05 (0-0.5); Granulocytes % 83.6 % (36.0-66.0); Hematocrit 39.6 % (35-47); Hemoglobin 12.5 gm/dl (12.0-16.0); Lymphocyte (Absolute #) 0.47 (1.0-4.6); Mean Cell Volume 91.2 fl (78-100); Mean Corpuscular Hemoglobin 28.8 pg (26-32); Mean Corpuscular Hgb Concent. 31.6 g/dl (32-36); Monocytes % 10.6 % (0.0-12.0); Platelet Count 138 K/mm3 (150-450); Red Blood Count 4.34 M/mm3 (4.1-5.4); Red Cell Distribution Width 17.6 % (11.5-14.0); White Blood Count 9.5 K/mm3 (4.0-10.5)
[2017-04-18 18:12] LABS: ADD MANUAL DIFF? NO (NO)
[2017-04-18] MEDS: ULTRAM 50 MG PO (18:22)
[2017-04-18 18:36] LABS: ALBUMIN 2.3 g/dL (3.4-5.0); ALKALINE PHOSPHATASE 168 U/L (46-116); AMYLASE 31 U/L (25-115); ANION GAP 12.1 MEQ/L (5-15); BLOOD UREA NITROGEN 13 mg/dL (9-20); CHLORIDE 103 mEq/L (98-107); Calcium 8.5 mg/dL (8.5-10.1); Carbon Dioxide 22.2 mEq/L (21-32); EST GLOMERULAR FILTRATION RATE 50 ML/MIN; Glucose 113 MG/DL (70-110); LIPASE 161 U/L (73-393); Potassium 4.1 mEq/L (3.5-5.1); SGOT/AST 31 U/L (15-37); SGPT/ALT 25 U/L (12-78); SODIUM 133 mEq/L (136-145); Total Protein 5.7 gm/dL (6.4-8.2)
[2017-04-18] MEDS: Lasix 40 MG/4 ML IV (19:56)
[2017-04-18 20:32] LABS: C Diff EIA/NAAT See Result Note:
[2017-04-18] MEDS: Ativan 1 MG PO (23:21)
[2017-04-19] MEDS: ULTRAM 50 MG PO ×3 (00:15→12:34)
[2017-04-19] MEDS: Cordarone 200 MG PO (09:47)
[2017-04-19] MEDS: SYNTHROID 100 MCG PO (09:48)
[2017-04-19] MEDS: Lopressor 50 MG PO (09:48)
[2017-04-19] MEDS: PATIENT OWN MEDICATION PO (09:49)
[2017-04-19] MEDS: Ativan 1 MG PO (09:50)
[2017-04-19] MEDS: VANCOMYCIN 25MG/ML COMPOUND KIT PO ×2 (09:50→12:34)
[2017-04-19] MEDS: TYLENOL 325 MG PO (14:18)
== END 2017-04-19 16:00 ==
LOC: ED 13:17 → MED SURG 15:48
CPT/HCPCS: 36415; 70450; 71045; 73521; 74176; 80048; 80053; 81000; 82150; 82805; 82962; 83605; 83690; 83735; 85025; 87086; 87324; 87449; 93005; 93268; 94760; 96360; 96374; 97161-GP; 97530-GP; 99285; G0378; J1170; J1940; J2270

== ENCOUNTER 2017-05-26 21:07 | Inpatient (IN) | payer MEDICARE ==
[2017-05-26] MEDS ORDERED: Phenergan 25 MG INJ IV ONE (21:24)
[2017-05-26] MEDS ORDERED: SUBLIMAZE 100 MCG/2 ML IV ONE (21:24)
[2017-05-26] MEDS ORDERED: Sodium Chloride 0.9% 1000 ML 1,000 ML IV STA ×2 (21:24→22:38)
--- NOTE | 2017-05-26 21:36 | ERPHSYRPT ---
- History of Present Illness Time Seen by Provider: 05/26/17 21:20 Historian: patient Exam Limitations: no limitations Physician History: FOR THE PAST 2 DAYS PT HAS HAD LOWER ABDOMINAL PAIN. LAST BM WAS YESTERDAY & WNL. PT DENIES NAUSEA, VOMITING, CHEST PAIN, SHORTNESS OF AIR, COUGH, CHILLS, FEVER. Allergies/Adverse Reactions: meperidine HCl [From Demerol] Allergy (Mild, Verified 05/26/17 22:13) Headache Home Medications: Calcium Carbonate/Vitamin D3 [Calcium 600-Vit D3 400 Tablet] 1 each PO BID 08/22 [History] Levothyroxine Sodium 100 Mcg [Synthroid 100 Mcg] 100 mcg PO DAILY 08/23/15 [History] Amiodarone HCl 200 mg [Cordarone 200 MG] 200 mg PO DAILY 09/02/16 [History ] Potassium Chloride 20 Meq [Klor-Con 20 MEQ] 20 meq PO DAILY 09/26/16 [History] Metoprolol Tartrate 50 mg [Lopressor 50 MG] 50 mg PO BID 02/21/17 [History ] Tramadol HCl 50 mg [Ultram 50 mg] 50 mg PO Q6HPRN PRN 04/13/17 [History] Hx Tetanus, Diphtheria Vaccination/Date Given: No Hx Influenza Vaccination/Date Given: Yes Hx Pneumococcal Vaccination/Date Given: Yes - Review of Systems Constitutional: No Fever, No Chills Respiratory: No Cough Cardiac: No Chest Pain Abdominal/Gastrointestinal: Abdominal Pain, No Nausea, No Vomiting, No Diarrhea All Other Systems: Reviewed and Negative - Past Medical History Pertinent Past Medical History: Yes Neurological History: No Pertinent History ENT History: Cataracts Cardiac History: Arrhythmia, Hypertension Respiratory History: No Pertinent History Endocrine Medical History: Hypothyroidism Musculoskeletal History: Fractures, Osteoporosis GI Medical History: Hemorrhoids, Irritable Bowel History: No Pertinent History Psycho-Social History: Anxiety Female Reproductive Disorders: Breast Cancer Other Medical History: broken neck, broken pelvis, cdiff - Past Surgical History Past Surgical History: Yes Neuro Surgical History: No Pertinent History Cardiac: No Pertinent History Respiratory: No Pertinent History Gastrointestinal: No Pertinent History Genitourinary: No Pertinent History Musculoskeletal: Orthopedic Surgery 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 Other Surgical History: back surgery- 5 yrsago; cataract surgery both eyes - Social History Smoking Status: Never smoker Exposure to second hand smoke: No Drug Use: none Patient Lives Alone: No - Nursing Vital Signs Nursing Vital Signs: Initial Vital Signs Temperature 99.9 F 05/26/17 21:30 Pulse Rate 99 H 05/26/17 21:30 Respiratory Rate 22 05/26/17 21:30 Blood Pressure 111/71 05/26/17 21:30 O2 Sat by Pulse Oximetry 97 05/26/17 21:30 Pain Scale Pain Intensity 0 - Physical Exam General Appearance: alert Eye Exam: PERRL/EOMI Ears, Nose, Throat Exam: dry mucous membranes, pharyngeal erythema Neck Exam: normal inspection Respiratory Exam: airway intact Cardiovascular Exam: No gallop Gastrointestinal/Abdomen Exam: soft, normal bowel sounds, tenderness (MILD LOWER ABDOMINAL TENDERNESS) Back Exam: normal inspection Extremity Exam: pedal edema (+1 PEDAL EDEMA), other (LOWER LEGS ERYTHEMATOUS), No tenderness Neurologic Exam: alert, cooperative - Course Nursing assessment & vital signs reviewed: Yes - CT Exams Abdomen/Pelvis CT Interpretation: Tele-radiologist Report (COLONIC WALL THICKENING RELATED TO NONSPECIFIC COLITIS. 4 CM INFRARENAL FUSIFORM ABDOMINAL AORTIC ANEURYSM. SEE REST OF REPORT.) Ordered Tests: Active Orders 24 hr Category Date Time Status Catheter-Downing Kuo STAT Care 05/26/17 21:24 Active IV Insertion STAT Care 05/26/17 21:24 Active ABDOMEN AND PELVIS W/0 CONTRAS [CT] Stat Exams 05/26/17 21:28 Taken AMYLASE Stat Lab 05/26/17 22:21 Completed BLOOD CULTURE Stat Lab 05/26/17 21:50 Ordered CBC W DIFF Stat Lab 05/26/17 21:24 Completed CMP Stat Lab 05/26/17 22:21 Completed CULTURE, THROAT Stat Lab 05/26/17 21:50 Received CULTURE,URINE Stat Lab 05/26/17 22:17 Received LIPASE Stat Lab 05/26/17 22:21 Completed Lactic Acid Stat Lab 05/26/17 21:29 Completed Lactic Acid Stat Lab 05/26/17 23:44 Ordered Manual Differential NC Stat Lab 05/26/17 21:24 Completed STREP SCREEN-BETA A Stat Lab 05/26/17 21:50 Completed UA W/ MICROSCOPIC Stat Lab 05/26/17 21:25 Completed Medication Summary Generic Name Dose Route Start Last Admin Trade Name Freq PRN Reason Stop Dose Admin Potassium Chloride 20 meq in 100 mls @ 50 mls/hr 05/26/17 22:36 05/26/17 23: 41 Potassium Chloride 20 Meq In Water 100ml IV 05/27/17 00:35 50 mls/hr STAT ONE Administration Discontinued Medications Generic Name Dose Route Start Last Admin Trade Name Eriberto PRN Reason Stop Dose Admin Fentanyl Citrate 50 mcg 05/26/17 21:24 05/26/17 21:48 Sublimaze 100 Mcg/2 Ml IV 05/26/17 21:25 50 mcg STAT ONE Administration Fentanyl Citrate Confirm 05/26/17 21:42 Sublimaze 100 Mcg/2 Ml Administered 05/26/17 21:43 Dose 100 mcg .ROUTE .STK-MED ONE Sodium Chloride 1,000 mls @ 999 mls/hr 05/26/17 21:24 05/26/17 21:48 Sodium Chloride 0.9% 1000 Ml IV 05/26/17 22:24 999 mls/hr .Q1H1M STA Administration Sodium Chloride Confirm 05/26/17 21:43 Sodium Chloride 0.9% 1000 Ml Administered 05/26/17 21:44 Dose 1,000 mls @ ud .ROUTE .STK-MED ONE Sodium Chloride 1,000 mls @ 999 mls/hr 05/26/17 22:17 05/26/17 23:13 Sodium Chloride 0.9% 1000 Ml IV 05/26/17 23:17 999 mls/hr .Q1H1M STA Administration Sodium Chloride Confirm 05/26/17 22:27 Sodium Chloride 0.9% 1000 Ml Administered 05/26/17 22:28 Dose 1,000 mls @ ud .ROUTE .STK-MED ONE Sodium Chloride 1,000 mls @ 999 mls/hr 05/26/17 22:38 05/26/17 23:14 Sodium Chloride 0.9% 1000 Ml IV 05/26/17 23:38 999 mls/hr .Q1H1M STA Administration Sodium Chloride Confirm 05/26/17 23:06 Sodium Chloride 0.9% 1000 Ml Administered 05/26/17 23:07 Dose 1,000 mls @ ud .ROUTE .STK-MED ONE Potassium Chloride Confirm 05/26/17 23:06 Potassium Chloride 20 Meq In Water 100ml Administered 05/26/17 23:07 Dose 100 mls @ ud IV .STK-MED ONE Ceftriaxone Sodium/Dextrose 1 g in 50 mls @ 100 mls/hr 05/26/17 23:12 23:18 Rocephin 1 Gm-D5w 50 Ml Bag IV 05/26/17 23:41 100 mls/hr STAT STA Administration Ceftriaxone Sodium/Dextrose Confirm 05/26/17 23:15 Rocephin 1 Gm-D5w 50 Ml Bag Administered 05/26/17 23:16 Dose 1 g in 50 mls @ ud IV .STK-MED ONE Promethazine HCl 12.5 mg 05/26/17 21:24 05/26/17 21:48 Phenergan 25 Mg Inj IV 05/26/17 21:25 12.5 mg STAT ONE Administration Promethazine HCl Confirm 05/26/17 21:42 Phenergan 25 Mg Inj Administered 05/26/17 21:43 Dose 25 mg .ROUTE .STK-MED ONE Lab/Rad Data: Laboratory Result Diagrams 05/26/17 21:24 05/26/17 22:21 Laboratory Results 05/26/17 05/26/17 05/26/17 Range/Units 22:21 21:50 21:50 WBC (4.0-10.5) K/mm3 RBC (4.1-5.4) M/mm3 Hgb (12.0-16.0) gm/dl Hct (35-47) % MCV (78-100) fl MCH (26-32) pg MCHC (32-36) g/dl RDW (11.5-14.0) % Plt Count (150-450) K/mm3 MPV (6-9.5) fl Segmented Neutrophils (36.0-66.0) % Band Neutrophils (0.0-2.0) % Lymphocytes (Manual) (24-44) % Monocytes (Manual) (0.0-12.0) % Toxic Granulation Poikilocytosis Ovalocytes Sodium 132 L (137-145) mmol/L Potassium 3.1 L (3.5-5.1) mmol/L Chloride 91 L (98-107) mEq/L Carbon Dioxide 29 (22-30) mmol/L Anion Gap 15.3 H (5-15) MEQ/L BUN 17 (7-17) mg/dl Creatinine 1.20 H (0.52-1.04) mg/dl Estimated GFR 45 ML/MIN Glucose 107 H (74-106) mg/dL Lactic Acid (0.4-2.0) Calcium 9.0 (8.4-10.2) mg/dL Total Bilirubin 0.90 (0.2-1.3) mg/d? AST 18 (14-36) U/L ALT 14 (0-35) U/L Alkaline Phosphatase 133 H (38-126) U/L Serum Total Protein 5.9 L (6.3-8.2) mg/dl Albumin 3.2 L (3.5-5.0) g/dl Amylase 36 (30-110) U/L Lipase 20 L (23-300) U/L Ur Collection Type Urine Color (YELLOW) Urine Appearance (CLEAR) Urine pH (5-6) Ur Specific [place] (1.005-1.025) Urine Protein (Negative) Urine Ketones (NEGATIVE) Urine Blood (0-5) [place]/ul Urine Nitrite (NEGATIVE) Urine Bilirubin (NEGATIVE) Urine Urobilinogen (0-1) mg/dL Ur Leukocyte Esterase (NEGATIVE) Urine Microscopic RBC (0-2) /HPF Urine Microscopic WBC (0-5) /HPF Ur Epithelial Cells (FEW) /HPF Urine Bacteria (NEGATIVE) /HPF Urine Culture Reflexed Urine Glucose (NEGATIVE) mg/dL Influenza Type A Ag NEGATIVE (NEGATIVE) Influenza Type B Ag NEGATIVE (NEGATIVE) RSV (PCR) NEGATIVE (Negative) Streptococcus Screen NEGATIVE (Negative) Specimen Received 05/26/17 05/26/17 05/26/17 Range/Units 21:29 21:25 21:24 WBC 19.9 H (4.0-10.5) K/mm3 RBC 4.18 (4.1-5.4) M/mm3 Hgb 12.7 (12.0-16.0) gm/dl Hct 39.1 (35-47) % MCV 93.5 (78-100) fl MCH 30.4 (26-32) pg MCHC 32.5 (32-36) g/dl RDW 17.8 H (11.5-14.0) % Plt Count 212 (150-450) K/mm3 MPV 10.0 H (6-9.5) fl Segmented Neutrophils 80 H (36.0-66.0) % Band Neutrophils 8 H (0.0-2.0) % Lymphocytes (Manual) 4 L (24-44) % Monocytes (Manual) 8 (0.0-12.0) % Toxic Granulation 1+ Poikilocytosis 1+ Ovalocytes 1+ Sodium (137-145) mmol/L Potassium (3.5-5.1) mmol/L Chloride (98-107) mEq/L Carbon Dioxide (22-30) mmol/L Anion Gap (5-15) MEQ/L BUN (7-17) mg/dl Creatinine (0.52-1.04) mg/dl Estimated GFR ML/MIN Glucose (74-106) mg/dL Lactic Acid 2.3 H (0.4-2.0) Calcium (8.4-10.2) mg/dL Total Bilirubin (0.2-1.3) mg/d? AST (14-36) U/L ALT (0-35) U/L Alkaline Phosphatase (38-126) U/L Serum Total Protein (6.3-8.2) mg/dl Albumin (3.5-5.0) g/dl Amylase (30-110) U/L Lipase (23-300) U/L Ur Collection Type CATH Urine Color LT.YELLOW (YELLOW) Urine Appearance CLOUDY (CLEAR) Urine pH 5.0 (5-6) Ur Specific [place] 1.010 (1.005-1.025) Urine Protein TRACE (Negative) Urine Ketones NEGATIVE (NEGATIVE) Urine Blood 50 (0-5) [place]/ul Urine Nitrite POSITIVE (NEGATIVE) Urine Bilirubin NEGATIVE (NEGATIVE) Urine Urobilinogen NORMAL (0-1) mg/dL Ur Leukocyte Esterase 2+ (NEGATIVE) Urine Microscopic RBC 2-5 (0-2) /HPF Urine Microscopic WBC >100 (0-5) /HPF Ur Epithelial Cells MODERATE (FEW) /HPF Urine Bacteria MANY (NEGATIVE) /HPF Urine Culture Reflexed Cancelled Urine Glucose NEGATIVE (NEGATIVE) mg/dL Influenza Type A Ag (NEGATIVE) Influenza Type B Ag (NEGATIVE) RSV (PCR) (Negative) Streptococcus Screen (Negative) Specimen Received 05/26/17 2200 - Departure Time of Disposition: 00:16 Departure Disposition: Observation Clinical Impression: UTI, COLITIS, ELEVATED LACTIC ACID, HYPOKALEMIA, 4 CM AAA, HTN, HYPOTHYROIDISM , IBS, OSTEOPOROSIS, ANXIETY Condition: Stable Critical Care Time: No Referrals: [facility] [Primary Care Provider] -
[2017-05-26] MEDS ORDERED: SUBLIMAZE 100 MCG/2 ML ONE (21:42)
[2017-05-26] MEDS ORDERED: Phenergan 25 MG INJ ONE (21:42)
[2017-05-26] MEDS ORDERED: Sodium Chloride 0.9% 1000 ML 1,000 ML ONE ×3 (21:43→23:06)
[2017-05-26 21:44] LABS: Lactic Acid 2.3 (0.4-2.0)
[2017-05-26 21:58] LABS: Granulocyte Absolute (ANC) 17.96 (1.4-6.9); Hematocrit 39.1 % (35-47); Hemoglobin 12.7 gm/dl (12.0-16.0); Mean Cell Volume 93.5 fl (78-100); Mean Corpuscular Hemoglobin 30.4 pg (26-32); Mean Corpuscular Hgb Concent. 32.5 g/dl (32-36); Platelet Count 212 K/mm3 (150-450); Red Blood Count 4.18 M/mm3 (4.1-5.4); Red Cell Distribution Width 17.8 % (11.5-14.0); White Blood Count 19.9 K/mm3 (4.0-10.5)
[2017-05-26 22:25] LABS: ALBUMIN 3.2 g/dl (3.5-5.0); ANION GAP 15.3 MEQ/L (5-15); BILIRUBIN,TOTAL 0.9 mg/d? (0.2-1.3); Creatinine 1 1.2 mg/dl (0.52-1.04); Potassium 3.1 mmol/L (3.5-5.1); Total Protein 5.9 mg/dl (6.3-8.2)
[2017-05-26] MEDS: Sodium Chloride 0.9% 1000 ML 1,000 ML IV STA ×2 (22:27→23:13)
[2017-05-26 22:35] LABS: INFLUENZA A NEGATIVE (NEGATIVE); INFLUENZA B NEGATIVE (NEGATIVE); RESPIRATORY SYNCTIAL VIRUS NEGATIVE (Negative)
[2017-05-26] MEDS ORDERED: POTASSIUM CHLORIDE 20 mEq IN WATER 100ML 20 MEQ/100 ML BAG IV ONE (22:36)
[2017-05-26 22:43] LABS: Appearance CLOUDY (CLEAR); Bilirubin NEGATIVE (NEGATIVE); Blood 50 Ery/ul (0-5); Glucose NEGATIVE (NEGATIVE); Ketones NEGATIVE (NEGATIVE); Leukocyte Esterase 2+ (NEGATIVE); Nitrite POSITIVE (NEGATIVE); Protein,Urine Dip TRACE (Negative); Urobilinogen NORMAL mg/dL (0-1)
[2017-05-26 22:44] LABS: Bacteria MANY /HPF (NEGATIVE); Epithelial Cells MODERATE /HPF (FEW); WBC >100 /HPF (0-5)
[2017-05-26 23:00] LABS: BAND 8 % (0.0-2.0); Lymphocytes 4 % (24-44); Monocyte 8 % (0.0-12.0); Neutrophils 80 % (36.0-66.0); Ovalocytes 1+; Poikilocytosis 1+; Total Cells Counted 100; Toxic Granulation 1+
[2017-05-26] MEDS ORDERED: POTASSIUM CHLORIDE 20 mEq IN WATER 100ML 100 ML IV ONE (23:06)
[2017-05-26] MEDS ORDERED: ROCEPHIN 1 Gm-D5w 50 ml Bag** 1 G/50 ML IVPB IV STA (23:12)
[2017-05-26] MEDS ORDERED: ROCEPHIN 1 Gm-D5w 50 ml Bag** 1 G/50 ML IVPB IV ONE (23:15)
[2017-05-27] MEDS ORDERED: POTASSIUM CHLORIDE 20 mEq IN WATER 100ML 20 MEQ/100 ML BAG IV ONE (01:11)
[2017-05-27] MEDS ORDERED: Phenergan 25 MG INJ IV PRN (01:11)
[2017-05-27 04:36] LABS: Granulocyte Absolute (ANC) 17.88 (1.4-6.9); Hematocrit 40.2 % (35-47); Hemoglobin 12.8 gm/dl (12.0-16.0); Mean Cell Volume 95.5 fl (78-100); Mean Corpuscular Hemoglobin 30.4 pg (26-32); Mean Corpuscular Hgb Concent. 31.8 g/dl (32-36); Mean Platelet Volume 9.8 fl (6-9.5); Platelet Count 182 K/mm3 (150-450); Red Blood Count 4.21 M/mm3 (4.1-5.4); Red Cell Distribution Width 18.3 % (11.5-14.0); White Blood Count 19.7 K/mm3 (4.0-10.5)
[2017-05-27 04:44] LABS: ANION GAP 13.2 MEQ/L (5-15); BILIRUBIN,TOTAL 0.8 mg/d? (0.2-1.3); Creatinine 1 1.04 mg/dl (0.52-1.04); Total Protein 5.7 mg/dl (6.3-8.2)
[2017-05-27] MEDS: FLAGYL 500 MG IVPB 500 MG/100 ML BAG IV SCH ×4 (04:48→21:24)
[2017-05-27 04:59] LABS: Lactic Acid 1.9 (0.4-2.0)
[2017-05-27] MEDS: Sodium Chloride 0.9% 1000 ML 1,000 ML IV SCH (05:44)
[2017-05-27 07:32] LABS: BAND 8 % (0.0-2.0); Lymphocytes 1 % (24-44); Monocyte 2 % (0.0-12.0); Neutrophils 89 % (36.0-66.0); Platelet Estimate NORMAL (NORMAL); Total Cells Counted 100; Toxic Granulation 1+
--- NOTE | 2017-05-27 08:16 | PCM.HP ---
History of Present Illness - Chief Complaint Chief Complaint: UTI Date: 05/27/17 History of Present Illness: is a 86 year old female. who lives at [facility] with increasing abdominal pain for 5 days and initially having frequent soft stools that improved but the pain worsened and became more confused and sent to ED. She is found to have UTI with urinary retention and possibly colitis. She currently has Kuo placed and denies abdominal pain. - Review of Systems Constitutional: Other (unalbe to obtain secondary to mental status) Medications & Allergies Home Medications: Home Medication List Calcium Carbonate/Vitamin D3 [Calcium 600-Vit D3 400 Tablet] 1 each PO BID 08/22 [History Confirmed 05/26/17] Levothyroxine Sodium 100 Mcg [Synthroid 100 Mcg] 100 mcg PO DAILY 08/23/15 [History Confirmed 05/26/17] Amiodarone HCl 200 mg [Cordarone 200 MG] 200 mg PO DAILY 09/02/16 [ History Confirmed 05/26/17] Potassium Chloride 20 Meq [Klor-Con 20 MEQ] 20 meq PO DAILY 09/26/16 [History Confirmed 05/26/17] Ropinirole HCl 0.5 mg [Requip 0.5 MG] 0.5 mg PO HS #30 tablet 01/23/17 [ Rx Confirmed 05/26/17] Metoprolol Tartrate 50 mg [Lopressor 50 MG] 50 mg PO BID 02/21/17 [ History Confirmed 05/26/17] Acetaminophen 325 mg [Tylenol 325 mg] 650 mg PO Q4H PRN PRN tablet [Rx Confirmed 05/26/17] Lorazepam 1 mg [Ativan 1 MG] 1 mg PO BID #60 tablet 02/22/17 [Rx Confirmed 05/26/17] Saccharomyces Boulardii [Florastor] 250 mg PO BID #60 packet 02/22/17 [Rx Confirmed 05/26/17] Tapentadol HCl [Nucynta ER] 200 mg PO BID #60 tab.er.12h MDD 2 02/22/17 [Rx Confirmed 05/26/17] Torsemide 100 mg PO DAILY #30 tablet 02/22/17 [Rx Confirmed 05/26/17] Tramadol HCl 50 mg [Ultram 50 mg] 50 mg PO Q6HPRN PRN 04/13/17 [History Confirmed 05/26/17] Allergies/Adverse Reactions: Allergies Allergy/AdvReac Type Severity Reaction Status Date / Time meperidine HCl [From Demerol] Allergy Mild Headache Verified 05/26/17 22:13 - Past Medical History Past Medical History: Yes Neurological History: No Pertinent History ENT History: Cataracts Cardiac History: Arrhythmia, Hypertension Respiratory History: No Pertinent History Endocrine Medical History: Hypothyroidism Musculoskelatal History: Fractures, Osteoporosis GI Medical History: Hemorrhoids, Irritable Bowel History: No Pertinent History Pyscho-Social History: Anxiety Reproductive Disorders: Breast Cancer Comment: broken neck, broken pelvis, cdiff - Female History Are you now?: No - Past Surgical History Past Surgical History: Yes Neuro Surgical History: No Pertinent History Cardiac History: No Pertinent History Respiratory Surgery: No Pertinent History GI Surgical History: No Pertinent History Genitourinary Surgical Hx: No Pertinent History Musculskeletal Surgical Hx: Orthopedic Surgery 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 Other Surgical History: back surgery- 5 yrsago; cataract surgery both eyes - Social History Smoking Status: Never smoker Exposure to second hand smoke: No Alcohol: None Drug Use: none - Physical Exam Vital Signs: Vital Signs - 24 hr Temp Pulse Resp BP Pulse Ox 05/27/17 06:53 99.2 F 82 20 97/50 98 05/27/17 01:57 97.9 F 84 16 122/78 99 05/26/17 23:50 99.8 F 80 18 113/86 98 05/26/17 23:01 80 20 128/85 05/26/17 22:00 85 16 99/58 97 05/26/17 21:30 99.9 F 99 H 22 111/71 97 Oxygen-Last 24 hours O2 Percentage 2 Liters = 28% O2 Percentage 3 Liters = 32% O2 Percentage 3 Liters = 32% O2 Percentage 3 Liters = 32% O2 Percentage 3 Liters = 32% O2 Percentage 3 Liters = 32% General Appearance: no apparent distress, alert Neurologic Exam: alert, No motor deficits Eye Exam: PERRL/EOMI, eyes nml inspection, pale conjunctivae Ears, Nose, Throat Exam: normal ENT inspection, pharynx normal, dry mucous membranes Neck Exam: normal inspection, non-tender, supple, full range of motion Respiratory Exam: normal breath sounds, lungs clear, No respiratory distress Cardiovascular Exam: regular rate/rhythm, normal heart sounds, normal peripheral pulses Gastrointestinal/Abdomen Exam: soft, other (Kuo in place), No normal bowel sounds (hypoactive), No tenderness, No distention, No mass, No guarding, No pulsatile mass, No rebound Back Exam: normal inspection, normal range of motion, No CVA tenderness, No vertebral tenderness Extremity Exam: normal inspection, normal range of motion, pelvis stable Skin Exam: normal color, warm, dry, No rash Lymphatic Exam: No adenopathy Results - Labs Lab/Micro Results: Accuchecks Date 05/27/17 Time 04:34 Accucheck Value: 65 Lab Results-Last 24 Hours 05/27/17 05/27/17 05/27/17 Range/Units 04:00 04:23 04:23 WBC 19.7 H (4.0-10.5) K/mm3 RBC 4.21 (4.1-5.4) M/mm3 Hgb 12.8 (12.0-16.0) gm/dl Hct 40.2 (35-47) % MCV 95.5 (78-100) fl MCH 30.4 (26-32) pg MCHC 31.8 L (32-36) g/dl RDW 18.3 H (11.5-14.0) % Plt Count 182 (150-450) K/mm3 MPV 9.8 H (6-9.5) fl Segmented Neutrophils 89 H (36.0-66.0) % Band Neutrophils 8 H (0.0-2.0) % Lymphocytes (Manual) 1 L (24-44) % Monocytes (Manual) 2 (0.0-12.0) % Differential Comment NORMAL Toxic Granulation 1+ Platelet Estimate NORMAL (NORMAL) Sodium 136 L (137-145) mmol/L Potassium 3.0 L (3.5-5.1) mmol/L Chloride 97 L (98-107) mEq/L Carbon Dioxide 29 (22-30) mmol/L Anion Gap 13.2 (5-15) MEQ/L BUN 14 (7-17) mg/dl Creatinine 1.04 (0.52-1.04) mg/dl Estimated GFR 54 ML/MIN Glucose 96 (74-106) mg/dL Lactic Acid 1.9 (0.4-2.0) Calcium 8.0 L (8.4-10.2) mg/dL Total Bilirubin 0.80 (0.2-1.3) mg/d? AST 14 (14-36) U/L ALT 13 (0-35) U/L Alkaline Phosphatase 115 (38-126) U/L Serum Total Protein 5.7 L (6.3-8.2) mg/dl Albumin 3.0 L (3.5-5.0) g/dl Accuchecks Date 05/27/17 Time 04:34 Accucheck Value: 65 - Other Procedures and Tests Respiratory Therapy 05/27/17 05:35 Oxygen NASAL CANNULA 3 lpm Assessment/Plan (1) Urinary retention with incomplete bladder emptying Current Visit: Yes Status: Acute Assessment & Plan: her pain was relieved with Kuo insertion she has UTI possible colitis continue levaquin with the flagyl has had c. diff in past most recent check was negative but no stools during this visit. 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 Current Visit: Yes Status: Chronic Code(s): I11.0 - HYPERTENSIVE HEART DISEASE WITH HEART FAILURE; I50.30 - UNSPECIFIED DIASTOLIC (CONGESTIVE) HEART FAILURE (5) CKD (chronic kidney disease) Current Visit: Yes Status: Chronic Qualifiers: Code(s): N18.9 - CHRONIC KIDNEY DISEASE, UNSPECIFIED (6) Hypokalemia Current Visit: Yes Status: Acute Code(s): E87.6 - HYPOKALEMIA (7) Neurogenic bladder Current Visit: Yes Status: Acute Code(s): N31.9 - NEUROMUSCULAR DYSFUNCTION OF BLADDER, UNSPECIFIED (8) Chronic hypoxemic respiratory failure Current Visit: Yes Status: Chronic (9) COPD (chronic obstructive pulmonary disease) Current Visit: Yes Status: Chronic (10) Abdominal aortic aneurysm (AAA) 3.0 cm to 5.0 cm in diameter in female Current Visit: Yes Status: Chronic Code(s): I71.4 - ABDOMINAL AORTIC ANEURYSM, WITHOUT RUPTURE (11) Chronic atrial fibrillation Current Visit: Yes Status: Chronic Code(s): I48.2 - CHRONIC ATRIAL FIBRILLATION
[2017-05-27] MEDS: PROTONIX 40 MG IV IV SCH (08:31)
[2017-05-27] MEDS: Levofloxacin 500MG/100ML D5W 500 MG/100 ML BAG IV SCH (08:31)
[2017-05-27] MEDS ORDERED: TYLENOL 325 MG PO PRN (08:36)
[2017-05-27] MEDS: ENOXAPARIN SODIUM SQ SCH (08:48)
[2017-05-27] MEDS: Cordarone 200 MG PO SCH (08:48)
[2017-05-27] MEDS: SYNTHROID 100 MCG PO SCH (08:49)
[2017-05-27] MEDS: Ativan 1 MG PO SCH ×2 (08:49→21:24)
[2017-05-27] MEDS: Lopressor 50 MG PO SCH ×2 (08:49→21:24)
[2017-05-27] MEDS: ULTRAM 50 MG PO PRN ×2 (08:49→14:28)
[2017-05-27] MEDS: Klor Con 10 MEQ PO SCH (08:49)
[2017-05-27] MEDS ORDERED: MEDICATION INTERVENTION PO SCH (09:00)
[2017-05-27] MEDS: Acidophilus TABLET PO SCH ×2 (09:06→21:24)
--- NOTE | 2017-05-27 09:09 | XRAY ---
Indication: Abdominal pain. History kidney stones. Multiple contiguous axial images obtained through the abdomen and pelvis without contrast as ordered. Comparison: April 16, 2017. Lung bases again demonstrates cardiomegaly and hiatal hernia with partial intrathoracic stomach. Previous bibasilar effusions have markedly improved with residual bibasilar atelectasis/scarring. Previous anasarca has also improved. Noncontrasted stomach and bowel loops again appears nonobstructed. Left hemicolon and sigmoid now demonstrates mild circumferential wall thickening either incomplete distention versus inflammation. No free fluid/air. Stable Kuo catheter in the bladder. Stable scattered hepatic/splenic calcified granulomas and fatty replaced pancreas. Gallbladder again not seen either contracted or surgically absent. Remaining liver, pancreas, spleen, adrenal glands, kidneys, and ureters appear unremarkable for noncontrast exam. Stable extensive aortoiliac calcifications with interval enlarging distal fusiform AAA today measuring 4 cm in greatest axial dimension, previously 3.5 cm. Osseous structures demonstrates stable osteopenia, advanced multilevel degenerative spondylosis, double curvature scoliosis, L1/L2 kyphoplasty, and old right pubic bone fractures. Impression: 1. Left hemicolon/sigmoid circumferential wall thickening. Rule out incomplete distention versus underlying colitis. 2. Minimally enlarging distal AAA. 3. Stable hiatal hernia, cardiomegaly, and Kuo catheter in situ. Comment: Preliminary interpretation was made by [facility]. No discrepancy. CTDI 11.25
[2017-05-27] MEDS: POTASSIUM CHLORIDE 20 mEq IN WATER 100ML 20 MEQ/100 ML BAG IV SCH ×2 (09:44→12:10)
[2017-05-27] MEDS ORDERED: NON-FORMULARY ITEM (Potassium Chloride 20 Meq [Klor-Con 20 Meq] 20 MEQ) PO SCH (10:00)
[2017-05-27] MEDS ORDERED: NON-FORMULARY ITEM (Tapentadol Hcl [Nucynta Er] 200 MG) PO SCH (10:00)
[2017-05-27] MEDS ORDERED: NON-FORMULARY ITEM (Saccharomyces Boulardii [Florastor] 250 MG) PO SCH (10:00)
[2017-05-27] MEDS: PATIENT OWN MEDICATION PO SCH ×2 (10:21→21:24)
[2017-05-27] MEDS: Requip 0.5 MG PO SCH (21:23)
[2017-05-27 21:41] LABS: TOXIGENIC C. DIFF ORG POSITIVE (NEGATIVE)
[2017-05-27 21:42] LABS: 027 TOX PROD POSITIVE (NEGATIVE)
[2017-05-27] MEDS ORDERED: VANCOMYCIN 25MG/ML COMPOUND KIT PO SCH ×2 (22:00→22:15)
[2017-05-28] MEDS: Requip 0.5 MG PO SCH ×2 (00:47→21:49)
[2017-05-28] MEDS: FLAGYL 500 MG IVPB 500 MG/100 ML BAG IV SCH ×3 (05:02→21:51)
[2017-05-28] MEDS: Sodium Chloride 0.9% 1000 ML 1,000 ML IV SCH (05:51)
--- NOTE | 2017-05-28 08:26 | PCM.NOTE ---
Date and Time: 05/28/17823 Subjective Assessment: She is complaining of intermittent abdominal pain mostly in the lower abdomen She did eat well yesterday she is very tired. She denies shortenss of breath or chest pain. Objective Exam General Appearance: no apparent distress, other (she is initially sleping an comfortable she awakens easily and is drowsy but answeres appropriately) Neurologic Exam: oriented x 3, cooperative Skin Exam: warm, dry Neck Exam: non-tender, supple Respiratory Exam: normal breath sounds, lungs clear Cardiovascular Exam: murmur, irregular Gastrointestinal/Abdomen Exam: soft, normal bowel sounds, tenderness (bilateral lower quadrants worse on the left), No distention, No guarding, No rebound Extremity Exam: other (trace cat LE edema with chronic redenss no warmth) OBJECTIVE DATA Vital Signs: Vital Signs - 24 hr Temp Pulse Resp BP Pulse Ox 05/28/17 07:19 97.9 F 82 20 99/61 96 05/28/17 04:00 97.9 F 89 18 109/84 95 05/28/17 00:00 98.3 F 103 H 22 138/86 93 L 05/27/17 20:36 93 H 18 96 05/27/17 20:00 97.4 F 101 H 18 117/73 98 05/27/17 15:48 98.6 F 78 18 100/60 94 L 05/27/17 10:59 98.7 F 80 20 88/54 93 L Pain Assessment - Last Documented Pain Scale Used [facility] Intake and Output: Intake & Output 05/25/17 05/26/17 05/27/17 05/28/17 10:59 11:59 11:59 11:59 Intake Total 0 2809 Output Total 550 Balance 0 2259 Weight 55.2 kg Lab Results: Lab Results-Last 24 Hours 05/27/17 05/27/17 Range/Units 14:31 20:33 Potassium 4.2 (3.5-5.1) mmol/L Stl C. diff Tox B Gene POSITIVE (NEGATIVE) C.difficile [id number] POSITIVE (NEGATIVE) Assessment/Plan (1) C. 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 Current Visit: Yes Status: Chronic Code(s): I11.0 - HYPERTENSIVE HEART DISEASE WITH HEART FAILURE; I50.30 - UNSPECIFIED DIASTOLIC (CONGESTIVE) HEART FAILURE (6) CKD (chronic kidney disease) Current Visit: Yes Status: Chronic Qualifiers: Code(s): N18.9 - CHRONIC KIDNEY DISEASE, UNSPECIFIED (7) Hypokalemia Current Visit: Yes Status: Acute Code(s): E87.6 - HYPOKALEMIA (8) Neurogenic bladder Current Visit: Yes Status: Acute Code(s): N31.9 - NEUROMUSCULAR DYSFUNCTION OF BLADDER, UNSPECIFIED (9) Chronic hypoxemic respiratory failure Current Visit: Yes Status: Chronic (10) COPD (chronic obstructive pulmonary disease) Current Visit: Yes Status: Chronic (11) Abdominal aortic aneurysm (AAA) 3.0 cm to 5.0 cm in diameter in female Current Visit: Yes Status: Chronic Code(s): I71.4 - ABDOMINAL AORTIC ANEURYSM, WITHOUT RUPTURE (12) Chronic atrial fibrillation Current Visit: Yes Status: Chronic Code(s): I48.2 - CHRONIC ATRIAL FIBRILLATION
[2017-05-28 09:39] LABS: Basophil (Absolute #) 0 (0-0.4); Eosinophil (Absolute #) 0.01 (0-0.5); Granulocyte Absolute (ANC) 25.06 (1.4-6.9); Granulocytes % 93.6 % (36.0-66.0); Hematocrit 42.4 % (35-47); Hemoglobin 13.3 gm/dl (12.0-16.0); Lymphocyte (Absolute #) 0.25 (1.0-4.6); Lymphocytes % 0.9 % (24.0-44.0); Mean Cell Volume 96.8 fl (78-100); Mean Corpuscular Hemoglobin 30.4 pg (26-32); Mean Corpuscular Hgb Concent. 31.4 g/dl (32-36); Mean Platelet Volume 9.9 fl (6-9.5); Monocyte (Absolute #) 1.46 (0.0-1.3); Monocytes % 5.5 % (0.0-12.0); Platelet Count 165 K/mm3 (150-450); Red Blood Count 4.38 M/mm3 (4.1-5.4); Red Cell Distribution Width 18.8 % (11.5-14.0)
[2017-05-28 10:12] LABS: ANION GAP 13.3 MEQ/L (5-15); Calcium 7.6 mg/dL (8.4-10.2); Creatinine 1 0.95 mg/dL (0.52-1.04); Potassium 3.6 mmol/L (3.5-5.1)
[2017-05-28 10:57] LABS: White Blood Count 26.8 K/mm3 (4.0-10.5)
[2017-05-28] MEDS: Klor Con 10 MEQ PO SCH (11:22)
[2017-05-28] MEDS: Levofloxacin 500MG/100ML D5W 500 MG/100 ML BAG IV SCH (11:22)
[2017-05-28] MEDS: Acidophilus TABLET PO SCH ×2 (11:23→21:50)
[2017-05-28] MEDS: Cordarone 200 MG PO SCH (11:23)
[2017-05-28] MEDS: Ativan 1 MG PO SCH ×2 (11:23→21:50)
[2017-05-28] MEDS: Lopressor 50 MG PO SCH ×2 (11:23→21:49)
[2017-05-28] MEDS: ENOXAPARIN SODIUM SQ SCH (11:23)
[2017-05-28] MEDS: SYNTHROID 100 MCG PO SCH (11:24)
[2017-05-28] MEDS: PROTONIX 40 MG IV IV SCH (11:24)
[2017-05-28] MEDS: PATIENT OWN MEDICATION PO SCH ×2 (11:24→21:50)
[2017-05-28] MEDS: VANCOMYCIN 25MG/ML COMPOUND KIT PO SCH ×4 (11:24→21:51)
[2017-05-28 12:04] LABS: BAND 3 % (0.0-2.0); Eosinophil 1 % (0.00-3.0); Lymphocytes 1 % (24-44); Monocyte 2 % (0.0-12.0); Neutrophils 93 % (36.0-66.0); Total Cells Counted 100
[2017-05-28 12:05] LABS: Platelet Estimate NORMAL (NORMAL); Toxic Granulation 2+
[2017-05-28] MEDS: ULTRAM 50 MG PO PRN (14:12)
[2017-05-29] MEDS: Sodium Chloride 0.9% 1000 ML 1,000 ML IV SCH ×2 (00:41→12:34)
[2017-05-29] MEDS: ULTRAM 50 MG PO PRN ×2 (04:12→14:24)
[2017-05-29 05:46] LABS: Granulocyte Absolute (ANC) 24.46 (1.4-6.9); Hematocrit 42.5 % (35-47); Hemoglobin 13.5 gm/dl (12.0-16.0); Mean Cell Volume 96.4 fl (78-100); Mean Corpuscular Hemoglobin 30.6 pg (26-32); Mean Corpuscular Hgb Concent. 31.8 g/dl (32-36); Mean Platelet Volume 10.2 fl (6-9.5); Platelet Count 170 K/mm3 (150-450); Red Blood Count 4.41 M/mm3 (4.1-5.4); Red Cell Distribution Width 18.8 % (11.5-14.0)
[2017-05-29 05:57] LABS: White Blood Count 26.1 K/mm3 (4.0-10.5)
[2017-05-29] MEDS: FLAGYL 500 MG IVPB 500 MG/100 ML BAG IV SCH ×3 (06:02→21:04)
[2017-05-29 06:05] LABS: ALBUMIN 2.3 g/dL (3.5-5.0); ALKALINE PHOSPHATASE 102 U/L (38-126); ANION GAP 13.6 MEQ/L (5-15); BLOOD UREA NITROGEN 15 mg/dL (7-17); CHLORIDE 108 mmol/L (98-107); Calcium 7.7 mg/dL (8.4-10.2); Carbon Dioxide 20 mmol/L (22-30); Creatinine 1 0.88 mg/dL (0.52-1.04); Glucose 86 mg/dL (74-106); Potassium 3.2 mmol/L (3.5-5.1); SGOT/AST 8 U/L (14-36); SGPT/ALT 9 U/L (0-35); SODIUM 138 mmol/L (137-145); Total Protein 4.7 g/dL (6.3-8.2)
--- NOTE | 2017-05-29 08:07 | PCM.NOTE ---
Date and Time: 05/29/17 0744 Subjective Assessment: she reports pain was improved yesterday still having the sensation of needing to urinate and pressure in the pelvis currently very fatigued has been sleeping was up in chair yesterday helped pain but made her tired. Objective Exam General Appearance: no apparent distress Neurologic Exam: alert, cooperative Skin Exam: warm, dry Neck Exam: non-tender, supple Respiratory Exam: normal breath sounds, lungs clear Cardiovascular Exam: regular rate/rhythm, normal heart sounds, normal peripheral pulses, edema (trace cat hands and 1+ cat feet) Gastrointestinal/Abdomen Exam: soft, normal bowel sounds, tenderness (left lower quadrant most severe), No distention, No guarding, No rebound Extremity Exam: swelling OBJECTIVE DATA Vital Signs: Vital Signs - 24 hr Temp Pulse Resp BP Pulse Ox 05/29/17 07:00 97.7 F 90 18 128/80 96 05/29/17 04:00 98.0 F 101 H 21 129/81 94 L 05/29/17 00:00 96 H 12 05/28/17 20:00 97.9 F 91 H 18 106/64 93 L 05/28/17 15:51 98 F 82 20 126/80 95 05/28/17 12:47 97.7 F 106 H 20 131/66 94 L 05/28/17 12:00 97.9 F 82 20 99/61 96 Pain Assessment - Last Documented Pain Scale [facility] Intake and Output: Intake & Output 05/26/17 05/27/17 05/28/17 05/29/17 11:59 11:59 11:59 11:59 Intake Total 0 2989 1783 Output Total 550 600 Balance 0 2439 1183 Weight 55.2 kg 58.1 kg Lab Results: Lab Results-Last 24 Hours 05/28/17 05/28/17 05/29/17 Range/Units 09:10 09:10 05:10 WBC 26.8 H* 26.1 H* (4.0-10.5) K/mm3 RBC 4.38 4.41 (4.1-5.4) M/mm3 Hgb 13.3 13.5 (12.0-16.0) gm/dl Hct 42.4 42.5 (35-47) % MCV 96.8 96.4 (78-100) fl MCH 30.4 30.6 (26-32) pg MCHC 31.4 L 31.8 L (32-36) g/dl RDW 18.8 H 18.8 H (11.5-14.0) % Plt Count 165 170 (150-450) K/mm3 MPV 9.9 H 10.2 H (6-9.5) fl Gran % 93.6 H (36.0-66.0) % Lymphocytes % 0.9 L (24.0-44.0) % Monocytes % 5.5 (0.0-12.0) % Eosinophils % 0.0 (0.00-5.0) % Basophils % 0.0 (0.0-0.4) % Segmented Neutrophils 93 H (36.0-66.0) % Band Neutrophils 3 H (0.0-2.0) % Lymphocytes (Manual) 1 L (24-44) % Monocytes (Manual) 2 (0.0-12.0) % Eosinophils (Manual) 1 (0.00-3.0) % Basophils # 0 (0-0.4) Differential Comment ABNORMAL Toxic Granulation 2+ Platelet Estimate NORMAL (NORMAL) Sodium 137 (137-145) mmol/L Potassium 3.6 (3.5-5.1) mmol/L Chloride 104 (98-107) mmol/L Carbon Dioxide 23 (22-30) mmol/L Anion Gap 13.3 (5-15) MEQ/L BUN 16 (7-17) mg/dL Creatinine 0.95 (0.52-1.04) mg/dL Estimated GFR 60 ML/MIN Glucose 81 (74-106) mg/dL Calcium 7.6 L (8.4-10.2) mg/dL Total Bilirubin (0.2-1.3) mg/dL AST (14-36) U/L ALT (0-35) U/L Alkaline Phosphatase (38-126) U/L Serum Total Protein (6.3-8.2) g/dL Albumin (3.5-5.0) g/dL 05/29/17 Range/Units 05:10 WBC (4.0-10.5) K/mm3 RBC (4.1-5.4) M/mm3 Hgb (12.0-16.0) gm/dl Hct (35-47) % MCV (78-100) fl MCH (26-32) pg MCHC (32-36) g/dl RDW (11.5-14.0) % Plt Count (150-450) K/mm3 MPV (6-9.5) fl Gran % (36.0-66.0) % Lymphocytes % (24.0-44.0) % Monocytes % (0.0-12.0) % Eosinophils % (0.00-5.0) % Basophils % (0.0-0.4) % Segmented Neutrophils (36.0-66.0) % Band Neutrophils (0.0-2.0) % Lymphocytes (Manual) (24-44) % Monocytes (Manual) (0.0-12.0) % Eosinophils (Manual) (0.00-3.0) % Basophils # (0-0.4) Differential Comment Toxic Granulation Platelet Estimate (NORMAL) Sodium 138 (137-145) mmol/L Potassium 3.2 L (3.5-5.1) mmol/L Chloride 108 H (98-107) mmol/L Carbon Dioxide 20 L (22-30) mmol/L Anion Gap 13.6 (5-15) MEQ/L BUN 15 (7-17) mg/dL Creatinine 0.88 (0.52-1.04) mg/dL Estimated GFR > 60 ML/MIN Glucose 86 (74-106) mg/dL Calcium 7.7 L (8.4-10.2) mg/dL Total Bilirubin 0.70 (0.2-1.3) mg/dL AST 8 L (14-36) U/L ALT 9 (0-35) U/L Alkaline Phosphatase 102 (38-126) U/L Serum Total Protein 4.7 L (6.3-8.2) g/dL Albumin 2.3 L (3.5-5.0) g/dL Assessment/Plan (1) C. difficile colitis Current Visit: Yes Status: Acute Assessment & Plan: on iv flagyl and po vanc wbc still significantly elevated remains afebrile vital signs stable she only had 2 small bm yesterday decrease fluids to 50 mL/h increase potassium to bid (2) Urinary retention with incomplete bladder emptying Current Visit: Yes Status: Acute Code(s): R33.9 - RETENTION OF URINE, UNSPECIFIED (3) UTI (urinary tract infection) Current Visit: Yes Status: Acute Assessment & Plan: Sensitivity is still pending was sent to reference lab currently still on levaquin day 4 Code(s): N39.0 - URINARY TRACT INFECTION, SITE NOT SPECIFIED (4) Sepsis Current Visit: Yes Status: Acute (5) 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 Current Visit: Yes Status: Chronic Code(s): I11.0 - HYPERTENSIVE HEART DISEASE WITH HEART FAILURE; I50.30 - UNSPECIFIED DIASTOLIC (CONGESTIVE) HEART FAILURE (6) CKD (chronic kidney disease) Current Visit: Yes Status: Chronic Qualifiers: Code(s): N18.9 - CHRONIC KIDNEY DISEASE, UNSPECIFIED (7) Hypokalemia Current Visit: Yes Status: Acute Code(s): E87.6 - HYPOKALEMIA (8) Neurogenic bladder Current Visit: Yes Status: Acute Code(s): N31.9 - NEUROMUSCULAR DYSFUNCTION OF BLADDER, UNSPECIFIED (9) Chronic hypoxemic respiratory failure Current Visit: Yes Status: Chronic (10) COPD (chronic obstructive pulmonary disease) Current Visit: Yes Status: Chronic (11) Abdominal aortic aneurysm (AAA) 3.0 cm to 5.0 cm in diameter in female Current Visit: Yes Status: Chronic Code(s): I71.4 - ABDOMINAL AORTIC ANEURYSM, WITHOUT RUPTURE (12) Chronic atrial fibrillation Current Visit: Yes Status: Chronic Code(s): I48.2 - CHRONIC ATRIAL FIBRILLATION
[2017-05-29 08:26] LABS: BAND 8 % (0.0-2.0); Monocyte 5 % (0.0-12.0); Neutrophils 87 % (36.0-66.0); Total Cells Counted 100
[2017-05-29 08:27] LABS: Platelet Estimate NORMAL (NORMAL)
[2017-05-29] MEDS: VANCOMYCIN 25MG/ML COMPOUND KIT PO SCH ×4 (10:30→23:30)
[2017-05-29] MEDS: PROTONIX 40 MG IV IV SCH (10:40)
[2017-05-29] MEDS: Ativan 1 MG PO SCH ×2 (10:40→21:48)
[2017-05-29] MEDS: SYNTHROID 100 MCG PO SCH (10:40)
[2017-05-29] MEDS: Klor Con 10 MEQ PO SCH ×2 (10:40→21:05)
[2017-05-29] MEDS: Cordarone 200 MG PO SCH (10:40)
[2017-05-29] MEDS: ENOXAPARIN SODIUM SQ SCH (10:40)
[2017-05-29] MEDS: Levofloxacin 500MG/100ML D5W 500 MG/100 ML BAG IV SCH (10:41)
[2017-05-29] MEDS: Acidophilus TABLET PO SCH ×2 (10:41→21:05)
[2017-05-29] MEDS: Lopressor 50 MG PO SCH ×2 (10:41→21:05)
[2017-05-29] MEDS: PATIENT OWN MEDICATION PO SCH ×2 (10:41→21:06)
[2017-05-29] MEDS: Requip 0.5 MG PO SCH (21:05)
[2017-05-30] MEDS: Sodium Chloride 0.9% 1000 ML 1,000 ML IV SCH (04:59)
[2017-05-30 05:41] LABS: Granulocyte Absolute (ANC) 23.64 (1.4-6.9); Hematocrit 44.6 % (35-47); Hemoglobin 14.2 gm/dl (12.0-16.0); Mean Cell Volume 95.7 fl (78-100); Mean Corpuscular Hemoglobin 30.5 pg (26-32); Mean Corpuscular Hgb Concent. 31.8 g/dl (32-36); Mean Platelet Volume 10.4 fl (6-9.5); Platelet Count 153 K/mm3 (150-450); Red Blood Count 4.66 M/mm3 (4.1-5.4)
[2017-05-30 05:49] LABS: White Blood Count 25.2 K/mm3 (4.0-10.5)
[2017-05-30] MEDS: FLAGYL 500 MG IVPB 500 MG/100 ML BAG IV SCH ×2 (05:59→13:17)
[2017-05-30 06:17] LABS: ANION GAP 13.6 MEQ/L (5-15); Calcium 7.9 mg/dL (8.4-10.2); Creatinine 1 1.07 mg/dL (0.52-1.04); Potassium 3.7 mmol/L (3.5-5.1)
[2017-05-30] MEDS ORDERED: Lasix 40 MG/4 ML IV ONE (07:00)
[2017-05-30 07:08] LABS: ANISOCYTOSIS 1+; Lymphocytes 15 % (24-44); Monocyte 2 % (0.0-12.0); Neutrophils 83 % (36.0-66.0); Poikilocytosis 1+; Polychromasia 1+; Total Cells Counted 100
[2017-05-30 07:09] LABS: Platelet Estimate NORMAL (NORMAL)
--- NOTE | 2017-05-30 07:24 | PCM.NOTE ---
Date and Time: 05/30/17714 Subjective Assessment: she was more tired throughout day yesterday sleeping most of the day up twice for very brief periods. takes pills with pudding not eating or drinking much otherwise. wakes up briefly to answer questions. still complaining of the urge to urinate. She has been complaining of abdominal pain. only 1 bowel movement yesterday. decreased urine output overnight. Objective Exam General Appearance: other (sleeping wakes up to answer yes, no otherwise falls back to sleep moves all for extremities) Neurologic Exam: No alert Skin Exam: warm, dry, other (chronic redness bilateral feet) Ears, Nose, Throat Exam: dry mucous membranes Neck Exam: normal inspection, non-tender, supple Respiratory Exam: lungs clear, No respiratory distress Cardiovascular Exam: edema (bilateral upper extremity edema), No murmur Gastrointestinal/Abdomen Exam: soft, tenderness (bilateral lower quadrants without rebound tenderness), No normal bowel sounds (hypoactive), No distention , No guarding, No rebound Extremity Exam: other (bilateral upper extremity edema), No pedal edema OBJECTIVE DATA Vital Signs: Vital Signs - 24 hr Temp Pulse Resp BP Pulse Ox 05/30/17 06:43 104 H 16 98 05/30/17 04:00 98.1 F 97 H 20 108/63 93 L 05/30/17 00:00 99 H 14 90 L 05/29/17 19:00 97.9 F 118 H 24 134/89 93 L 05/29/17 15:01 96.9 F 109 H 20 158/98 05/29/17 13:51 94 H 20 93 L 05/29/17 10:39 97.8 F 106 H 20 148/79 94 L 05/29/17 08:17 92 L Oxygen-Last 24 hours Oxygen Flowrate (L/min)-RT 3 Pain Assessment - Last Documented Pain Scale Used FLACC Intake and Output: Intake & Output 05/27/17 05/28/17 05/29/17 05/30/17 11:59 11:59 11:59 11:59 Intake Total 0 2989 1903 2238 Output Total 550 600 400 Balance 0 2439 1303 1838 Weight 55.2 kg 58.1 kg 58.1 kg Lab Results: Lab Results-Last 24 Hours 05/29/17 05/30/17 05/30/17 Range/Units 05:10 05:13 05:13 WBC 25.2 H* (4.0-10.5) K/mm3 RBC 4.66 (4.1-5.4) M/mm3 Hgb 14.2 (12.0-16.0) gm/dl Hct 44.6 (35-47) % MCV 95.7 (78-100) fl MCH 30.5 (26-32) pg MCHC 31.8 L (32-36) g/dl RDW 19.0 H (11.5-14.0) % Plt Count 153 (150-450) K/mm3 MPV 10.4 H (6-9.5) fl Segmented Neutrophils 87 H 83 H (36.0-66.0) % Band Neutrophils 8 H (0.0-2.0) % Lymphocytes (Manual) 15 L (24-44) % Monocytes (Manual) 5 2 (0.0-12.0) % Differential Comment NORMAL ABNORMAL Platelet Estimate NORMAL NORMAL (NORMAL) Polychromasia 1+ Poikilocytosis 1+ Anisocytosis 1+ Sodium 138 (137-145) mmol/L Potassium 3.7 (3.5-5.1) mmol/L Chloride 110 H (98-107) mmol/L Carbon Dioxide 18 L (22-30) mmol/L Anion Gap 13.6 (5-15) MEQ/L BUN 17 (7-17) mg/dL Creatinine 1.07 H (0.52-1.04) mg/dL Estimated GFR 52 ML/MIN Glucose 71 L (74-106) mg/dL Calcium 7.9 L (8.4-10.2) mg/dL Multi-Disciplinary Progress Notes: Multi-Disciplinary Progress Notes 05/29/17 10:26 Case Management Note by Jasmin Echeverria DR.'S NURSE UPDATED ON GM NEG RODS. Initialized on 05/29/17 10:26 - END OF NOTE Assessment/Plan (1) C. difficile colitis Current Visit: Yes Status: Acute Assessment & Plan: with minimal improvement but no diarrhea any longer She has received 4 doses of levaquin for her UTI unfortunately the urine culture was sent to reference lab and only has gram neg rods now no sensitivities still will stop levaquin as she remains afebrile and with the elevated wbc and colitis on exam with + c. diff suspect illness predominetly still the c. diff continue flagyl iv and vanc po if febrile will add additional coverage for the UTI to include possible pseudomonoas and consider meropenem as she has history of neurogenic bladder and was having urinary retention at time of presentation currently with Kuo hopefully the culture will return for the UTI for her third spacing she is diuretic dependent at baseline usually on high dose torsemide vital signs have remained stable with normal bp mild elevated hr in the 90 to 110 range since arrival he oxygen began to decrease with sleep but improved on 3L and no respiratory distress give dose of lasix iv now monitor response If continues decline will discuss with family possibility of transfer for secondary options for c. diff colitis care. 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 Current Visit: Yes Status: Chronic Code(s): I11.0 - HYPERTENSIVE HEART DISEASE WITH HEART FAILURE; I50.30 - UNSPECIFIED DIASTOLIC (CONGESTIVE) HEART FAILURE (6) CKD (chronic kidney disease) Current Visit: Yes Status: Chronic Qualifiers: Code(s): N18.9 - CHRONIC KIDNEY DISEASE, UNSPECIFIED (7) Hypokalemia Current Visit: Yes Status: Acute Code(s): E87.6 - HYPOKALEMIA (8) Neurogenic bladder Current Visit: Yes Status: Acute Code(s): N31.9 - NEUROMUSCULAR DYSFUNCTION OF BLADDER, UNSPECIFIED (9) Chronic hypoxemic respiratory failure Current Visit: Yes Status: Chronic (10) COPD (chronic obstructive pulmonary disease) Current Visit: Yes Status: Chronic (11) Abdominal aortic aneurysm (AAA) 3.0 cm to 5.0 cm in diameter in female Current Visit: Yes Status: Chronic Code(s): I71.4 - ABDOMINAL AORTIC ANEURYSM, WITHOUT RUPTURE (12) Chronic atrial fibrillation Current Visit: Yes Status: Chronic Code(s): I48.2 - CHRONIC ATRIAL FIBRILLATION
[2017-05-30] MEDS ORDERED: D5W/0.45NS W/ 20mEq KCl 1000 ML 1,000 ML IV SCH (07:30)
[2017-05-30] MEDS: Klor Con 10 MEQ PO SCH (07:53)
[2017-05-30] MEDS: ENOXAPARIN SODIUM SQ SCH (07:54)
[2017-05-30] MEDS: PROTONIX 40 MG IV IV SCH (07:54)
[2017-05-30] MEDS: Cordarone 200 MG PO SCH (07:54)
[2017-05-30] MEDS: Lopressor 50 MG PO SCH (07:54)
[2017-05-30] MEDS: SYNTHROID 100 MCG PO SCH (07:54)
[2017-05-30] MEDS: PATIENT OWN MEDICATION PO SCH (07:54)
[2017-05-30] MEDS: Acidophilus TABLET PO SCH (07:54)
[2017-05-30] MEDS: VANCOMYCIN 25MG/ML COMPOUND KIT PO SCH ×3 (09:32→16:59)
[2017-05-30] MEDS ORDERED: Ativan 0.5 MG PO SCH (10:00)
[2017-05-30 14:46] LABS: Granulocyte Absolute (ANC) 24.44 (1.4-6.9); Hematocrit 50.7 % (35-47); Hemoglobin 16.1 gm/dl (12.0-16.0); Mean Corpuscular Hgb Concent. 31.8 g/dl (32-36); Mean Platelet Volume 10.3 fl (6-9.5); Platelet Count 156 K/mm3 (150-450); Red Blood Count 5.28 M/mm3 (4.1-5.4)
[2017-05-30 15:09] LABS: A-aADO2 110; ABG HEMOGLOBIN 16.1; ABG POTASSIUM 4.8 (3.5-5.1); ARTERIAL BLD GAS O2 SATURATION 89.6 % (95-100); ARTERIAL BLOOD GAS BASE EXCESS -8.9 (-2.0-2.0); ARTERIAL BLOOD GAS FIO2 28 %; ARTERIAL BLOOD GAS PCO2 32 mmHg (35-45); ARTERIAL BLOOD GAS pH 7.31 (7.35-7.45); CARBOXYHEMOGLOBIN 3.1 % THgb (0.0-6.9); HCO3- 16.1 (22-28); HGB O2 SAT 85.9 g/dF (94-100); paO2 pAO1 0.31
[2017-05-30 15:10] LABS: ABG SITE RIGHT RADIAL; ARTERIAL BLOOD GAS PO2 50 mmHg (75-100)
[2017-05-30 15:12] LABS: Lactic Acid 2.3 (0.4-2.0)
[2017-05-30 15:14] LABS: ANION GAP 17.5 MEQ/L (5-15); Calcium 8.2 mg/dL (8.4-10.2); Creatinine 1 1.39 mg/dL (0.52-1.04); Potassium 4.6 mmol/L (3.5-5.1)
[2017-05-30 15:15] LABS: Mean Corpuscular Hemoglobin 30.4 pg (26-32); White Blood Count 26.1 K/mm3 (4.0-10.5)
[2017-05-30] MEDS ORDERED: Lactated Ringers 1,000 ML IV ONE (15:37)
[2017-05-30 15:44] LABS: BAND 2 % (0.0-2.0); Lymphocytes 3 % (24-44); Monocyte 1 % (0.0-12.0); Neutrophils 94 % (36.0-66.0); Total Cells Counted 100
[2017-05-30 15:45] LABS: ANISOCYTOSIS 2+; Platelet Estimate NORMAL (NORMAL); Poikilocytosis 1+; Toxic Granulation 2+
[2017-05-30 16:18] VITALS: O2SAT 97
[2017-05-30] MEDS ORDERED: Phenergan 25 MG INJ IV PRN (20:23)
[2017-05-30] MEDS ORDERED: Ativan 2 MG/1 ML VIAL IV PRN (20:24)
[2017-05-30] MEDS ORDERED: MORPHINE SULFATE 4 MG INJ ONE ×2 (20:32→21:58)
[2017-05-30] MEDS: MORPHINE SULFATE 4 MG INJ IV PRN (20:34)
--- NOTE | 2017-05-30 20:40 | PCM.NOTE ---
Date and Time: 05/30/172027 Subjective Assessment: she did not respond to the fluid bolus still decreased urine output her mental status that was already diminished had continued to decline throughout the day. The repeat labs showed the dehydration and metabolic acidosis she was given LR bolus with minimal urine output. At 4pm discussed with her daughter and she noted that she was concerned with her quality of life and her suffering and was questioning allowing for natural vs continued treatment. We set up a family meeting and had this tonight. Sarah has not been responsive for the meeting but was moaning with pain after being repositioned 1 hour ago. she has not had bowel movement today. Objective Exam General Appearance: other (moaning with pain not responding to questions unable to take oral meds) Skin Exam: mottled, pale, other (cool feet and hands with 3rd spacing.) Eye Exam: pale conjunctivae, No scleral icterus Neck Exam: supple Respiratory Exam: normal breath sounds, lungs clear Cardiovascular Exam: tachycardia Gastrointestinal/Abdomen Exam: soft, tenderness, No distention, No guarding, No rebound Extremity Exam: pedal edema, other (cool edema) OBJECTIVE DATA Vital Signs: Vital Signs - 24 hr Temp Pulse Resp BP Pulse Ox 05/30/17 16:00 99.2 F 105 H 12 118/73 97 05/30/17 11:13 99.3 F 107 H 12 107/70 05/30/17 07:19 99 F 107 H 16 120/64 98 05/30/17 06:43 104 H 16 98 05/30/17 04:00 98.1 F 97 H 20 108/63 93 L 05/30/17 00:00 99 H 14 90 L Oxygen-Last 24 hours O2 Percentage 4 Liters = 36% O2 Percentage 3 Liters = 32% O2 Percentage 3 Liters = 32% Oxygen Flowrate (L/min)-RT 3 Pain Assessment - Last Documented Pain Scale Used 0-10 Pain Scale,FLACC Intake and Output: Intake & Output 05/28/17 05/29/17 05/30/17 05/31/17 11:59 11:59 11:59 11:59 Intake Total 2989 1903 2238 10 Output Total 550 600 400 80 Balance 2439 1303 1838 -70 Weight 55.2 kg 58.1 kg 62.5 kg Lab Results: Lab Results-Last 24 Hours 03/05/30/17 05/30/17 Range/Units 05:13 05:13 15:00 WBC 25.2 H* 26.1 H* (4.0-10.5) K/mm3 RBC 4.66 5.28 (4.1-5.4) M/mm3 Hgb 14.2 16.1 H (12.0-16.0) gm/dl Hct 44.6 50.7 H (35-47) % MCV 95.7 96.0 (78-100) fl MCH 30.5 30.4 (26-32) pg MCHC 31.8 L 31.8 L (32-36) g/dl RDW 19.0 H 20.0 H (11.5-14.0) % Plt Count 153 156 (150-450) K/mm3 MPV 10.4 H 10.3 H (6-9.5) fl Segmented Neutrophils 83 H 94 H (36.0-66.0) % Band Neutrophils 2 (0.0-2.0) % Lymphocytes (Manual) 15 L 3 L (24-44) % Monocytes (Manual) 2 1 (0.0-12.0) % Differential Comment ABNORMAL ABNORMAL Toxic Granulation 2+ Platelet Estimate NORMAL NORMAL (NORMAL) Polychromasia 1+ Poikilocytosis 1+ 1+ Anisocytosis 1+ 2+ Puncture Site pCO2 (35-45) mmHg pO2 (75-100) mmHg Base Excess (-2.0-2.0) O2 Saturation (94-100) g/dF ABG pH (7.35-7.45) ABG HCO3 (22-28) ABG O2 Sat (Measured) (95-100) % Bruce Test A-a Gradient a/A Ratio Hemoglobin Carboxyhemoglobin (0.0-6.9) % THgb Methemoglobin (1.4-1.5) % Temperature C POC O2 Flow Rate % Sodium 138 (137-145) mmol/L Potassium 3.7 (3.5-5.1) mmol/L Chloride 110 H (98-107) mmol/L Carbon Dioxide 18 L (22-30) mmol/L Anion Gap 13.6 (5-15) MEQ/L BUN 17 (7-17) mg/dL Creatinine 1.07 H (0.52-1.04) mg/dL Estimated GFR 52 ML/MIN Glucose 71 L (74-106) mg/dL Lactic Acid (0.4-2.0) Calcium 7.9 L (8.4-10.2) mg/dL 05/30/17 05/30/17 05/30/17 Range/Units 15:00 15:00 15:00 WBC (4.0-10.5) K/mm3 RBC (4.1-5.4) M/mm3 Hgb (12.0-16.0) gm/dl Hct (35-47) % MCV (78-100) fl MCH (26-32) pg MCHC (32-36) g/dl RDW (11.5-14.0) % Plt Count (150-450) K/mm3 MPV (6-9.5) fl Segmented Neutrophils (36.0-66.0) % Band Neutrophils (0.0-2.0) % Lymphocytes (Manual) (24-44) % Monocytes (Manual) (0.0-12.0) % Differential Comment Toxic Granulation Platelet Estimate (NORMAL) Polychromasia Poikilocytosis Anisocytosis Puncture Site RIGHT RADIAL pCO2 32 L (35-45) mmHg pO2 50 L* (75-100) mmHg Base Excess -8.9 L (-2.0-2.0) O2 Saturation 85.9 L (94-100) g/dF ABG pH 7.31 L (7.35-7.45) ABG HCO3 16.1 L* (22-28) ABG O2 Sat (Measured) 89.6 L (95-100) % Bruce Test NOT APPLICABLE A-a Gradient 110 a/A Ratio 0.31 Hemoglobin 16.1 Carboxyhemoglobin 3.1 (0.0-6.9) % THgb Methemoglobin 1.0 L (1.4-1.5) % Temperature 37.0 C POC O2 Flow Rate 28 % Sodium 140 (137-145) mmol/L Potassium 4.6 4.8 (3.5-5.1) mmol/L Chloride 111 H (98-107) mmol/L Carbon Dioxide 17 L (22-30) mmol/L Anion Gap 17.5 H (5-15) MEQ/L BUN 19 H (7-17) mg/dL Creatinine 1.39 H (0.52-1.04) mg/dL Estimated GFR 38 ML/MIN Glucose 91 (74-106) mg/dL Lactic Acid 2.3 H (0.4-2.0) Calcium 8.2 L (8.4-10.2) mg/dL Multi-Disciplinary Progress Notes: Multi-Disciplinary Progress Notes 05/30/17 15:35 (created 05/30/17 15:38) Respiratory Note by Jenny Mortensen DONE AND REPORTED TO DR. Lucinda AGUILAR. PT'S O2 SAT CURRENTLY 87% ON 2LPM OXYMASK. OXYGEN WAS THEN INCREASED TO 4LPM OXYMASK. O2 SAT INCREASED TO 97%. DR. Lucinda AGUILAR AWARE. Initialized on 05/30/17 15:38 - END OF NOTE Assessment/Plan (1) C. difficile colitis Current Visit: Yes Status: Acute Assessment & Plan: we had a family meeting at 8pm with Sarah's daughter, and son locally as well as her son in [facility] via facetime and multiple extended relatives in the room as well. We had discussion about her treatment and options that include transfer to tertiary facility to consider further treatment options such as rectal vancomycin, fecal transplants or colectomy. They agreed she would not want transferred she refused to go to [facility] hospitals in the past. We discussed continued aggressive treatment with oral vanc and iv flagyl and fluid resuscitation and discussed her poor prognosis and likely prolonged recovery. 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 Her family notes that she has always stated she never wanted to live like that and her daughter does not want to make her go back to the custodial as she hates it there. She has had continued pain and discomfort over the last several months with recurrent infections and progressively worsening functional decline. We discussed this infection and her urinary retention that she refused robles catheter for after last hospitalization would only decrease her independence more and her family is in agreement that they do not believe she would want further treatment given her pain and suffering and function decline and that they wish for us to allow natural . We have changed her to comfort measures only. will d/c the iv fluids and antibiotics and work on pain control with iv morphine and control of anxiety with Ativan. She will be allowed to take po fluids or food if she wakes up and would like these but no artificial nutrition at this time. We discussed the process of dying in detail and she has prognosis with expected in the next 48 hours likely. 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 Current Visit: Yes Status: Chronic Code(s): I11.0 - HYPERTENSIVE HEART DISEASE WITH HEART FAILURE; I50.30 - UNSPECIFIED DIASTOLIC (CONGESTIVE) HEART FAILURE (6) CKD (chronic kidney disease) Current Visit: Yes Status: Chronic Qualifiers: Code(s): N18.9 - CHRONIC KIDNEY DISEASE, UNSPECIFIED (7) Hypokalemia Current Visit: Yes Status: Acute Code(s): E87.6 - HYPOKALEMIA (8) Neurogenic bladder Current Visit: Yes Status: Acute Code(s): N31.9 - NEUROMUSCULAR DYSFUNCTION OF BLADDER, UNSPECIFIED (9) Chronic hypoxemic respiratory failure Current Visit: Yes Status: Chronic (10) COPD (chronic obstructive pulmonary disease) Current Visit: Yes Status: Chronic (11) Abdominal aortic aneurysm (AAA) 3.0 cm to 5.0 cm in diameter in female Current Visit: Yes Status: Chronic Code(s): I71.4 - ABDOMINAL AORTIC ANEURYSM, WITHOUT RUPTURE (12) Chronic atrial fibrillation Current Visit: Yes Status: Chronic Code(s): I48.2 - CHRONIC ATRIAL FIBRILLATION
[2017-05-30] MEDS ORDERED: FEVERALL 650 MG PR PRN (20:41)
[2017-05-30] MEDS ORDERED: Ativan 2 MG/1 ML VIAL ONE (21:59)
[2017-05-30] MEDS ORDERED: FEVERALL 650 MG ONE (23:16)
[2017-05-30 23:48] VITALS: BP 95/58; PULSE 108
[2017-05-31] MEDS: MORPHINE SULFATE 4 MG INJ IV PRN (00:44)
--- NOTE | 2017-05-31 06:54 | PCM.DS ---
Discharge Summary Date of Admission: 05/27/17 08:04 Date of Discharge: 05/31/2016 Admitting Physician: KELSI AGUILAR Primary Care Provider: KELSI AGUILAR Allergies Allergies meperidine HCl [From Demerol] Allergy (Mild, Verified 05/26/17 22:13) Headache Hospital Summary - Hospital Course Hospital Course: Ms. Mahmood has a history of chronic pain, ckd, and diastolic heart failure as well as neurogenic bladder and recurrent UTI's and recurrent C. diff infections. She has had progressive functional decline over the last 2 years and much worse over the last 6 months. She has gone from living with her daughter to requiring rehab stays with short stents back home before repeat hospitalization and this year she has required [facility] care permanent placement for the last several months due to her decreasing functional abilities. Her pain has worsened over the last several months and her family has noted increased decline since she has required the [facility] care at [facility]. After her last hospitalization she was noted to have a neurogenic bladder but refused to have the Kuo or follow up or repeat catheterizations and has struggled with chronic abdominal pain incontinence of bowels and bladder and recurrent falls from this. This pain was worsening prior to hospitalization and she was more somnolent and weak and febrile at [facility] and sent to ED where she was found to have urinary retention and a UTI and sepsis that was found to be Klebsilla pneumonia sensitive to levaquin that was initiated in the ED for her (the culture and sensitivities were not available until just prior to her time of ). She received 4 days of iv levaquin for this CT was also positive for colitis and she was started on iv flagyl in ED and c. diff was obtained as she was having frequent watery stools and incontinence of stool and it was positive for C. diff with the highly toxigenic NAP 1 strain. She was continued on the iv flagyl and 250 mg QID of po vancomycin was added but she continued to have the abdominal pain, luekocytosis and bandemia. On day 5 of her hospitalization she continued to show progressive decline despite this therapy. The levaquin was held on day 5. She was having hypoxia related to her third spacing and pleural effusions and diffuse anasarca as well as the sepsis. She was having decreased urinary output and with her chronic diuretic dependence from her diastolic heart failure a dose of lasix was given with no results and repeat labs were drawn showing metabolic acidosis and LR bolus was given. The daughter at this time discussed her wishes that she not have to return to the assisted and continue to suffer this way. We had a family meeting at 8pm with her daughter and local son as well as the son from [facility] via speaker phone and multiple other relatives in the room, to discuss her options which included aggressive therapy with fluid resuscitation and antibiotics, frequent lab draws and increased respiratory support for her anasarca and respiratory failure as well as transfer to tertiary center for consideration for rectal vancomycin, colectomy and stool transplant. They expressed there wishes that she would not want to have these aggressive measures taken with her poor prognosis and with the likelihood that survival would only worsen her loss of independence she has already had that she stated in the past she never wanted to live in a assisted or on life supportive measures. After discussion of options they wished that we keep her comfortable and allow for natural should it ensue. Her oral medications and fluid resuscitation was stopped. She was in obvious discomfort but not able to communicate and iv morphine helped relieve this some and she 6 hours later with her family at bedside. - Vitals & Intake/Output Vital Signs: Vital Signs Temperature 101.4 F 05/30/17 23:43 Pulse Rate 108 H 05/30/17 23:43 Respiratory Rate 16 05/30/17 23:43 Blood Pressure 95/58 05/30/17 23:43 O2 Sat by Pulse Oximetry 97 05/30/17 16:00 Oxygen-Last Documented O2 Percentage 4 Liters = 36% Intake & Output: Intake & Output 05/28/17 05/29/17 05/30/17 05/31/17 11:59 11:59 11:59 11:59 Intake Total 2989 1903 2238 10 Output Total 550 600 400 80 Balance 2439 1303 1838 -70 Weight 55.2 kg 58.1 kg 62.5 kg - Lab Result Diagrams: 05/30/17 15:00 05/30/17 15:00 Lab Results-Last 24 Hrs: Lab Results-Last 24 Hours 05/30/17 05/30/17 05/30/17 Range/Units 05:13 15:00 15:00 WBC 26.1 H* (4.0-10.5) K/mm3 RBC 5.28 (4.1-5.4) M/mm3 Hgb 16.1 H (12.0-16.0) gm/dl Hct 50.7 H (35-47) % MCV 96.0 (78-100) fl MCH 30.4 (26-32) pg MCHC 31.8 L (32-36) g/dl RDW 20.0 H (11.5-14.0) % Plt Count 156 (150-450) K/mm3 MPV 10.3 H (6-9.5) fl Segmented Neutrophils 83 H 94 H (36.0-66.0) % Band Neutrophils 2 (0.0-2.0) % Lymphocytes (Manual) 15 L 3 L (24-44) % Monocytes (Manual) 2 1 (0.0-12.0) % Differential Comment ABNORMAL ABNORMAL Toxic Granulation 2+ Platelet Estimate NORMAL NORMAL (NORMAL) Polychromasia 1+ Poikilocytosis 1+ 1+ Anisocytosis 1+ 2+ Puncture Site pCO2 (35-45) mmHg pO2 (75-100) mmHg Base Excess (-2.0-2.0) O2 Saturation (94-100) g/dF ABG pH (7.35-7.45) ABG HCO3 (22-28) ABG O2 Sat (Measured) (95-100) % Bruce Test A-a Gradient a/A Ratio Hemoglobin Carboxyhemoglobin (0.0-6.9) % THgb Methemoglobin (1.4-1.5) % Potassium (3.5-5.1) Temperature C POC O2 Flow Rate % Sodium (137-145) mmol/L Chloride (98-107) mmol/L Carbon Dioxide (22-30) mmol/L Anion Gap (5-15) MEQ/L BUN (7-17) mg/dL Creatinine (0.52-1.04) mg/dL Estimated GFR ML/MIN Glucose (74-106) mg/dL Lactic Acid 2.3 H (0.4-2.0) Calcium (8.4-10.2) mg/dL 05/30/17 05/30/17 Range/Units 15:00 15:00 WBC (4.0-10.5) K/mm3 RBC (4.1-5.4) M/mm3 Hgb (12.0-16.0) gm/dl Hct (35-47) % MCV (78-100) fl MCH (26-32) pg MCHC (32-36) g/dl RDW (11.5-14.0) % Plt Count (150-450) K/mm3 MPV (6-9.5) fl Segmented Neutrophils (36.0-66.0) % Band Neutrophils (0.0-2.0) % Lymphocytes (Manual) (24-44) % Monocytes (Manual) (0.0-12.0) % Differential Comment Toxic Granulation Platelet Estimate (NORMAL) Polychromasia Poikilocytosis Anisocytosis Puncture Site RIGHT RADIAL pCO2 32 L (35-45) mmHg pO2 50 L* (75-100) mmHg Base Excess -8.9 L (-2.0-2.0) O2 Saturation 85.9 L (94-100) g/dF ABG pH 7.31 L (7.35-7.45) ABG HCO3 16.1 L* (22-28) ABG O2 Sat (Measured) 89.6 L (95-100) % Bruce Test NOT APPLICABLE A-a Gradient 110 a/A Ratio 0.31 Hemoglobin 16.1 Carboxyhemoglobin 3.1 (0.0-6.9) % THgb Methemoglobin 1.0 L (1.4-1.5) % Potassium 4.6 4.8 (3.5-5.1) Temperature 37.0 C POC O2 Flow Rate 28 % Sodium 140 (137-145) mmol/L Chloride 111 H (98-107) mmol/L Carbon Dioxide 17 L (22-30) mmol/L Anion Gap 17.5 H (5-15) MEQ/L BUN 19 H (7-17) mg/dL Creatinine 1.39 H (0.52-1.04) mg/dL Estimated GFR 38 ML/MIN Glucose 91 (74-106) mg/dL Lactic Acid (0.4-2.0) Calcium 8.2 L (8.4-10.2) mg/dL Final Diagnosis/Problem List - Final Discharge Diagnosis/Problem (1) Sepsis Status: Acute (2) C. difficile colitis Status: Acute (3) Urinary retention with incomplete bladder emptying Status: Acute (4) UTI (urinary tract infection) Status: Acute (5) 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 Status: Chronic (6) CKD (chronic kidney disease) Status: Chronic (7) Hypokalemia Status: Acute (8) Neurogenic bladder Status: Acute (9) Chronic hypoxemic respiratory failure Status: Chronic (10) COPD (chronic obstructive pulmonary disease) Status: Chronic (11) Abdominal aortic aneurysm (AAA) 3.0 cm to 5.0 cm in diameter in female Status: Chronic (12) Chronic atrial fibrillation Status: Chronic - Discharge Discharge Date: 05/31/17 Disposition: Condition: Prescriptions: No Action Levothyroxine Sodium 100 Mcg [Synthroid 100 Mcg] 100 mcg PO DAILY Calcium Carbonate/Vitamin D3 [Calcium 600-Vit D3 400 Tablet] 1 each PO BID Amiodarone HCl 200 mg [Cordarone 200 MG] 200 mg PO DAILY Potassium Chloride 20 Meq [Klor-Con 20 MEQ] 20 meq PO DAILY Ropinirole HCl 0.5 mg [Requip 0.5 MG] 0.5 mg PO HS #30 tablet Metoprolol Tartrate 50 mg [Lopressor 50 MG] 50 mg PO BID Saccharomyces Boulardii [Florastor] 250 mg PO BID #60 packet Tapentadol HCl [Nucynta ER] 200 mg PO BID #60 tab.er.12h MDD 2 Torsemide 100 mg PO DAILY #30 tablet Acetaminophen 325 mg [Tylenol 325 mg] 650 mg PO Q4H PRN PRN tablet PRN Reason: Pain And/Or Fever Lorazepam 1 mg [Ativan 1 MG] 1 mg PO BID #60 tablet Tramadol HCl 50 mg [Ultram 50 mg] 50 mg PO Q6HPRN PRN PRN Reason: Pain Follow up with: KELSI AGUILAR [Primary Care Provider] - 1 Week
== END 2017-05-31 02:38 | disposition expired | DRG 872 ==
LOC: ED 21:07 → MED SURG 05-27 00:36 → OBSVTOIN 05-27 08:04
PROVIDERS: ADMIT Family Medicine; ATTEND Family Medicine
DX: A41.9 Sepsis, unspecified organism (principal); A04.72 Enterocolitis due to Clostridium difficile, not specified as recurrent; R74.0 Nonspecific elevation of levels of transaminase and lactic acid dehydrogenase [LDH]; N39.0 Urinary tract infection, site not specified; I13.0 Hypertensive heart and chronic kidney disease with heart failure and stage 1 through stage 4 chronic kidney disease, or unspecified chronic kidney disease; I11.0 Hypertensive heart disease with heart failure; I50.30 Unspecified diastolic (congestive) heart failure; J96.11 Chronic respiratory failure with hypoxia; E87.2 Acidosis; I10 Essential (primary) hypertension; E03.9 Hypothyroidism, unspecified; K58.9 Irritable bowel syndrome, unspecified; M81.0 Age-related osteoporosis without current pathological fracture; F41.9 Anxiety disorder, unspecified; Z79.899 Other long term (current) drug therapy; R33.9 Retention of urine, unspecified; N18.9 Chronic kidney disease, unspecified; E87.6 Hypokalemia; N31.9 Neuromuscular dysfunction of bladder, unspecified; J44.9 Chronic obstructive pulmonary disease, unspecified; I71.4 Abdominal aortic aneurysm, without rupture; I48.2 Chronic atrial fibrillation; E86.0 Dehydration
CPT/HCPCS: 36415; 36600; 51702; 74176; 80048; 80053; 81000; 82150; 82375; 82803; 82962; 83036; 83605; 83690; 84132; 85025; 87040; 87070; 87077; 87086; 87430; 87493; 87631; 94760; 96360; 96361; 96365; 96366; 96367; 96374; 99285; J0696; J1650; J1940; J1956; J2060; J2270; J2550; J3010; J3480; P9612; A9270-GY